=== PATIENT | male | born 1980 | race Caucasian/White ===

== ENCOUNTER 2020-01-26 15:58 | Emergency (ER) | payer BC ==
[~2020-01-26] VITALS: Ht 180.3 cm; Wt 145.4 kg
[~2020-01-26 15:58] MED LIST: BUPR-42 PO; CYCL10TA9 PO; GABA-488 PO; LEVO500T69 PO; LISI-556 PO; MELATONIN; NAPR-243 PO; ONDA8TAB13 PO; TRAZODONE HCL; TRM50T PO; ZOLOFT; [UNRECOGNIZED DRUG - OTHER]
--- NOTE | 2020-01-26 16:26 | ED Back Pain ---
General Chief Complaint: Back Problems Stated Complaint: BACK PAIN Source of Information: Patient Exam Limitations: No Limitations History of Present Illness Date Seen by Provider: January 26, 2020 Time Seen by Provider: 16:08 Initial Comments Patient presents ER by private conveyance with chief complaint of excruciating of back pain in his left lower back radiating down occasionally along the back side of his leg down to the level of the knee. No saddle anesthesia, loss of control of bowel or bladder, numbness, weakness, falls, trauma, history of surgery or imaging. He has been followed for this back pain that has recurred for many years by [facility] Tou[facility]. They have done several different pain management strategies but he is not really the name of any medications. He has not tried Tylenol, ibuprofen, topical creams, heat, ice, back brace or rest. He feels the pain is worse with movement but better at rest. No fever chills cough shortness of breath nausea or dysuria. No diabetes. Allergies and Home Medications Allergies Coded Allergies: No Known Drug Allergies (Unverified , 02/19/15) Home Medications Bupropion HCl 150 Mg Tab.er.24h, 150 MG PO DAILY, (Reported) Cyclobenzaprine HCl 10 Mg Tablet, 10 MG PO Q8H PRN for SPASMS Prescribed by: ESTHER ROUSE on 01/26/20 1629 Gabapentin 300 Mg Capsule, 300 MG PO DAILY, (Reported) Levofloxacin 500 Mg Tab, 1 EACH PO DAILY Prescribed by: JACI HAMILTON on 02/19/15 2344 Ondansetron 8 Mg Tab.rapdis, 8 MG PO Q6H PRN for NAUSEA/VOMITING Prescribed by: JAIDEN MCHUGH on 12/15/151934 Tramadol HCl 50 Mg Tablet, 50 MG PO Q6H PRN for PAIN Prescribed by: JAIDEN MCHUGH on 12/15/151934 Patient Home Medication List Home Medication List Reviewed: Yes Review of Systems Constitutional: No chills, No diaphoresis EENTM: No ear discharge, No ear pain Respiratory: No cough, No short of breath Cardiovascular: No chest pain, No edema Gastrointestinal: No abdominal pain, No nausea Genitourinary: No discharge, No dysuria Musculoskeletal: back pain; No joint pain Skin: No pruritus, No rash Past Myaifbv-Jsbvxc-Ujzezv Hx Patient Social History Alcohol Use: Denies Use Recreational Drug Use: No Smoking Status: Never a Smoker Recent Foreign Travel: No Contact w/Someone Who Travel: No Past Medical History Orthopedic Hypertension Reproductive Disorders: No Kidney Stones Fractures Diabetes, Non-Insulin dep Anxiety, Personality Disorder, Depression Adverse Reaction/Blood Tranf: No Family Medical History Heart Disease, Cancer, Diabetes, Hypertension Physical Exam Vital Signs Vital Signs - First Documented 01/26/20 16:02 Temp 36.9 Pulse 81 Resp 18 B/P (MAP) 121/81 (94) Pulse Ox 96 O2 Delivery Room Air Capillary Refill : Height, Weight, BMI Height: 5'10" Weight: 290lbs. oz. 131.179613kx; 41.61 BMI Method:Stated General Appearance: No Apparent Distress, WD/WN HEENT: PERRL/EOMI, Pharynx Normal, Moist Mucous Membranes Neck: Full Range of Motion, Normal Inspection Cardiovascular: Regular Rate, Rhythm, No Edema, Normal Peripheral Pulses Respiratory: Normal Breath Sounds, No Accessory Muscle Use, No Respiratory Distress Peripheral Pulses: 2+ Dorsalis Pedis (R), 2+ Left Dors-Pedis (L) Extremity: Normal Capillary Refill, Normal Inspection, Normal Range of Motion, Non Tender, No Pedal Edema Neurologic/Psychiatric: Alert, Oriented x3, No Motor/Sensory Deficits, Other (bilateral patellar tendon reflexes 2 out of 4, symmetric. Sensation present bilateral lower extremities. No motor deficits. Normal gait.) Skin: Normal Color, Warm/Dry Procedures/Interventions Progress Risks, benefits and alternatives were explained to a site injection with steroids and anesthetic area patient agreed to the risks and consented for rest to continue. We clean the site early using iodine swabs. After the iodine had dried clear thin able to use Z track method to put a 1-1/2 inch 25-gauge needle at the point of most pain and inject around the area after aspiration failed to withdraw any blood. We put 2 cc of 2% lidocaine with epinephrine as well as 2 cc of half percent bupivacaine and 1 cc/40 mg of Depo-Medrol. Patient tolerated the procedure very well. Progress/Results/Core Measures Results/Orders My Orders Orders - ESTHER ROUSE Lidocaine/Epi 2% 1:100,000 (Xylocaine/Ep (01/26/20 16:30) Methylprednisolone Acetate Inj (Depo-Med (01/26/20 16:30) Ketorolac Injection (Toradol Injection) (01/26/20 16:45) Medications Given in ED Current Medications Medications Dose Ordered Sig/Mariusz Route Start Time Stop Time Status Last Admin Dose Admin Lidocaine/ Epinephrine 20 ml ONCE ONCE INJ 01/26/20 16:30 01/26/20 16:31 DC 01/26/20 16:42 20 ML Methylprednisolone Acetate 40 mg ONCE ONCE IA 01/26/20 16:30 01/26/20 16:31 DC 01/26/20 16:41 40 MG Vital Signs/I&O 01/26/20 16:02 Temp 36.9 Pulse 81 Resp 18 B/P (MAP) 121/81 (94) Pulse Ox 96 O2 Delivery Room Air Progress Progress Note : Time: 16:25 Progress Note We discussed risks, benefits and alternatives to injecting with steroids versus oral and he would prefer to do the injection. Reproducible bupivacaine and lidocaine to help with point tenderness injecting. We've also given him a prescription for muscle relaxants. He has an appointment tomorrow with his primary care provider and he says he'll put that off until next week for follow- up. Departure Impression Primary Impression: Lumbago with sciatica, left side Qualified Codes: M54.42 - Lumbago with sciatica, left side Disposition: 01 HOME, SELF-CARE Condition: Stable Departure-Patient Inst. Decision time for Depature: 16:27 Referrals: [facility] (PCP/Family) Primary Care Physician Patient Instructions: Sciatica, Low Back Pain (DC), Sciatica Exercises, Back Flexion Strengthening Exercises Add. Discharge Instructions: Expect to see improvement over the next 1-2 weeks. If you're not seeing improvement and follow-up with primary care doctor. Return to the nearest ER promptly if you begin to experience loss of control of your bowels or bladder, weakness, numbness. Ibuprofen 800 mg every 8 hours as needed for pain. Tylenol 1000 mg every 8 hours as needed for pain. Cyclobenzaprine 1 tablet every 8 hours as necessary for muscle spasms in your back. It will cause drowsiness. All discharge instructions reviewed with patient and/or family. Voiced understanding. Scripts Cyclobenzaprine HCl (Cyclobenzaprine HCl) 10 Mg Tablet 10 MG PO Q8H PRN for SPASMS, #15 TAB 0 Refills Prov: ESTHER ROUSE 01/26/20 ESTHER ROUSE January 26, 2020 16:26
[2020-01-26] MEDS ORDERED: CYCL10TA9 PO (16:29)
[2020-01-26] MEDS ORDERED: LIDOCAINE/EPI 2% 1:100,00 (XYLOCAINE) 20 ML VIAL INJ ONE (16:30)
[2020-01-26] MEDS ORDERED: methylPREDNISolone 40 MG/ML (DEPO MEDROL) VIAL IA ONE (16:30)
[2020-01-26] MEDS ORDERED: KETOROLAC 60 MG/2 ML VIAL IM ONE (16:45)
[2020-01-26 17:18] VITALS: BP 126/80
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
--- OUTSIDE RECORDS SUMMARY | 2020-01-26 19:42 | XMS REPORT ---
Author Author Deon Avila Doctor Organization [facility] Address Unknown Phone Unavailable Care Team Providers Care Private Mortgage [employer]er Safe Name Role Phone Migration, Doctor Unavailable Unavailable PROBLEMS Type Condition ICD9-CM Code NIK36-MA Code Onset Dates Condition S tatus SNOMED Code Problem Hypogonadism in male E29.1 Active 91569001 Problem Morbid obesity due to excess calories E66.01 Active 813518171 Problem Mood disorder F39 Active 688173 05 Problem Other chronic pain G89.29 Active 8 7673641 Problem Generalized anxiety disorder F41.1 A ctive 61069740 Problem Lumbago with sciatica, left side M54.42 Active 411093088 Problem Bipolar disorder, curr episode mixed, severe, wi th psychotic features F31.64 Active 736361030 Problem Anxiety F41.9 Active 97336008 Problem Low back pain M54.5 Active 175753 007 Problem Observed sleep apnea G47.30 Active 82709601 Problem Acute left-sided low back pain with left-sided sciatica M54.42 Active 551584791 ALLERGIES No Information ENCOUNTERS Encounter Location Date Diagnosis [place] [address] [address] Jul, Lumbago with sciatica, left side M54.42 and Other chronic pain G89.29 [place] [address] [address] Jun, [place] [address] [address] 07 Jun, 2019 Bipolar disorder, curr episode mixed, se [place], with psychotic features F31.64 [place] [address] [address] May, Low back pain M54.5 ; Other chronic pain G89.29 ; Morbid obesity due to excess calories E66.01 and Family history of diabetes mellitus Z83.3 [place] [address] [address] Apr, BMI 40.0-44.9, adult Z68.41 ; Bipolar di sorder, curr episode mixed, severe, with psychotic features F31.64 and Morbid obesity E66.01 [place] [address] [address] Mar, Bipolar disorder, curr episode mixed, se kolton, with psychotic features F31.64 [facility] [address] [place] [id number] [place] [address] Mar, Acute left-sided low back pa in with left-sided sciatica M54.42 [place] [address] [address] Mar, [place] [address] [address] Mar, Bipolar disorder, curr episode mixed, se kolton, with psychotic features F31.64 ; BMI 40.0-44.9, adult Z68.41 and Morbid obesity E66.01 [facility] [address] [place] [id number] [place] [address] January, Strain of lumbar region, ini tial encounter S39.012A [place] [address] [address] Dec, Snoring R06.83 [place] [address] [address] Dec, Bipolar disorder, curr episode mixed, se kolton, with psychotic features F31.64 ; BMI 40.0-44.9, adult Z68.41 and Morbid obesity E66.01 [place] [address] [address] Nov, Snoring R06.83 and Observed sleep apnea G47.30 [place] [address] [address] Oct, Bipolar disorder, curr episode mixed, se kolton, with psychotic features F31.64 and BMI 40.0-44.9, adult Z68.41 [facility] [address] [address] May, Low back pain M54.5 and Cervicalgia M54. 2 [place] [address] [address] Apr, Low back pain M54.5 ; Bipolar disorder, curr episode mixed, severe, with psychotic features F31.64 ; Hypogonadism in male E29.1 ; Morbid obesity due to excess calories E66.01 ; Mood disorder F39 and Cervicalgia M54.2 [place] [address] [address] Apr, Bipolar disorder, curr episode mixed, se kolton, with psychotic features F31.64 and BMI 40.0-44.9, adult Z68.41 [facility] [address] [facility] [id number] [place] [address] Apr, Hand, foot and mouth disease B08.4 and Ingrown toenail of right foot with infection L60.0 [place] [address] [address] January, Bipolar disorder, curr episode mixed, se kolton, with psychotic features F31.64 and BMI 40.0-44.9, adult Z68.41 [place] [address] [address] Dec, Bipolar disorder, curr episode mixed, se kolton, with psychotic features F31.64 [place] [address] [address] Aug, Bipolar disorder, curr episode mixed, se kol[place], with psychotic features F31.64 [place] [address] [address] Apr, Bipolar disorder, curr episode mixed, se kolton, with psychotic features F31.64 [place] [address] [address] Mar, Bipolar disorder, curr episode mixed, se kolton, with psychotic features F31.64 [facility] [address] [place] [address] Mar, Bipolar disorder, curr episode mixed, se kolton, with psychotic features F31.64 [facility] [address] [place] [address] Nov, Bipolar disorder, curr episode mixed, se kolton, with psychotic features F31.64 [facility] [address] [address] Oct, Bipolar disorder, curr episode mixed, se kolton, with psychotic features F31.64 [facility] [address] [address] Oct, Bipolar disorder, curr episode mixed, se kolton, with psychotic features F31.64 [facility] [address] [place] [address] Sep, [facility] [address] [address] Sep, Bipolar disorder, curr episode mixed, se kolton, with psychotic features F31.64 [facility] [address] [address] Sep, Bipolar disorder, curr episode mixed, se kolton, with psychotic features F31.64 [facility] [address] [place] [id number] Sep, Bipolar disorder, curr episode mixed, se kolton, with psychotic features F31.64 and Generalized anxiety disorder F41.1 [facility] [address] [place] [address] Jul, Bipolar disorder, curr episode mixed, se kolton, with psychotic features F31.64 and Generalized anxiety disorder F41.1 [facility] [address] [address] Jul, [facility] [address] [address] Jul, Bipolar disorder, curr episode mixed, se kolton, with psychotic features F31.64 [place] [address] [address] Jul, Bipolar disorder, curr episode mixed, se kolton, with psychotic features F31.64 and Generalized anxiety disorder F41.[address] [address] Jul, Bipolar disorder, curr episode mixed, se kolton, with psychotic features F31.64 [place] [address] [address] Jul, Bipolar II disorder F31.81 and Generaliz ed anxiety disorder F41.[address] [address] Feb, Dental examination Z01.[address] [address] Dec, Dental examination Z01.20 [facility] [address] [id number] Nov, Dental examination Z01.20 [facility] [address] [id number] Sep, Dental examination Z01.[address] [address] Jul, Hypogonadism in male E29.[address] [address] 07 Jun, 2015 Diabetes mellitus without mention of com plication, type II or unspecified type, not stated as uncontrolled 250.00 and Testicular pain, right 608.[address] [address] May, Hypogonadism in male 257.[address] [address] Apr, [address] [id number] [place] [address] Mar, Hypogonadism in male 257.2 [facility] [address] [address] Mar, [facility] [address] [address] Mar, [facility] [address] [address] Mar, Hypogonadism in male 257.2 [facility] [address] [address] Feb, Hypogonadism male 257.2 [facility] [address] [address] Feb, Diabetes mellitus without mention of com plication, type II or unspecified type, not stated as uncontrolled 250.00 ; Epididymitis 604.90 and Hypogonadism in male 257.2 [facility] [address] [address] Feb, [facility] [address] [address] Feb, [facility] [address] [address] Feb, Testicular pain, right 608.9 ; Diabetes mellitus without mention of complication, type II or unspecified type, not stated as uncontrolled 250.00 and Family history of heart disease V17.49 [facility] [address] [address] Feb, Testicular pain, right 608.9 and Family history of heart disease V17.49 [facility] [address] [address] Feb, [facility] [address] [address] Dec, [facility] [address] [address] Dec, [facility] [place] [facility] [address] [facility] [id number] [place] [address] 16 Oct, 2014 [facility] [place] [facility] [address] [id number] [place] [address] Oct, [facility] [place] [facility] [address] [id number] [place] [address] Sep, [facility] [place] [facility] [address] [id number] [place] [address] Sep, [facility] [place] [facility] [address] [id number] [place] [address] Sep, [facility] [place] [facility] [address] [id number] [place] [address] Sep, [facility] [place] [facility] [address] [id number] [place] [address] Sep, [facility] [place] [facility] [address] [id number] [place] [address] Sep, [facility] [place] [facility] [address] [id number] [place] [address] Sep, [facility] [place] [facility] [address] [id number] [place] [address] Sep, [facility] [place] [facility] [address] [id number] [place] [address] Sep, [facility] [place] [facility] [address] [id number] [place] [address] Sep, [facility] [place] [facility] [address] [id number] [place] [address] Feb, [facility] [place] [facility] [address] [id number] [place] [address] Feb, [facility] [place] [facility] [address] [id number] [place] [address] January, [facility] [place] [facility] [address] [id number] [place] [address] January, [facility] [place] [facility] [address] [id number] [place] [address] January, [facility] [address] [id number] [place] [address] January, [facility] [address] [id number] [place] [address] January, [facility] [address] [id number] [place] [address] January, [facility] [address] [id number] [place] [address] Nov, [facility] [address] [id number] [place] [address] Nov, [facility] [address] [id number] [place] [address] Nov, [facility] [address] [id number] [place] [address] Nov, [facility] [address] [id number] [place] [address] Oct, [facility] [address] [id number] [place] [address] Oct, [facility] [address] [id number] [place] [address] Oct, [facility] [address] [id number] [place] [address] Oct, [facility] [address] [id number] [place] [address] Oct, [facility] [address] [id number] [place] [address] Oct, [facility] [address] [place] [id number] [place] [address] 14 Oct, 2013 [facility] [address] [id number] [place] [address] 14 Oct, 2013 [facility] [address] [id number] [place] [address] 13 Oct, 2013 IMMUNIZATIONS No Known Immunizations SOCIAL HISTORY Never Assessed REASON FOR VISIT PLAN OF CARE VITAL SIGNS MEDICATIONS Unknown Medications RESULTS No Results PROCEDURES No Known procedures INSTRUCTIONS MEDICATIONS ADMINISTERED No Known Medications MEDICAL [...]
--- OUTSIDE RECORDS SUMMARY | 2020-01-26 19:42 | XMS REPORT ---
Author Author Deon Avila Doctor Organization [facility] Address Unknown Phone Unavailable Care Team Providers Care Lsw Name Role Phone Migration, Doctor Unavailable Unavailable PROBLEMS Type Condition ICD9-CM Code YRY56-LS Code Onset Dates Condition S tatus SNOMED Code Problem Hypogonadism in male E29.1 Active 97454790 Problem Morbid obesity due to excess calories E66.01 Active 513713901 Problem Mood disorder F39 Active 079092 05 Problem Other chronic pain G89.29 Active 8 0951557 Problem Generalized anxiety disorder F41.1 A ctive 64838844 Problem Lumbago with sciatica, left side M54.42 Active 390911968 Problem Bipolar disorder, curr episode mixed, severe, wi th psychotic features F31.64 Active 037562332 Problem Anxiety F41.9 Active 63793633 Problem Low back pain M54.5 Active 510045 007 Problem Observed sleep apnea G47.30 Active 57118361 Problem Acute left-sided low back pain with left-sided sciatica M54.42 Active 736362336 ALLERGIES No Information ENCOUNTERS Encounter Location Date Diagnosis [place] [address] [address] Nov, [place] [address] [address] Nov, [place] [address] [address] Jul, Lumbago with sciatica, left side M54.42 and Other chronic pain G89.29 [place] [address] [address] Jun, [place] [address] [address] 07 Jun, 2019 Bipolar disorder, curr episode mixed, se kolton, with psychotic features F31.64 [place] [address] [address] May, Low back pain M54.5 ; Other chronic pain G89.29 ; Morbid obesity due to excess calories E66.01 and Family history of diabetes mellitus Z83.3 [place] [address] [address] Apr, BMI 40.0-44.9, adult Z68.41 ; Bipolar di sorder, curr episode mixed, severe, with psychotic features F31.64 and Morbid obesity E66.01 [place] [address] [address] Mar, Bipolar disorder, curr episode mixed, se kolton, with psychotic features F31.64 [facility] [address] [address] Mar, Acute left-sided low back pa in with left-sided sciatica M54.[address] [address] Mar, [address] [address] Mar, Bipolar disorder, curr episode mixed, se kolton, with psychotic features F31.64 ; BMI 40.0-44.9, adult Z68.41 and Morbid obesity E66.01 [facility] [place] [id number] [place] [address] January, Strain of lumbar region, ini tial encounter S39.012A [address] [address] Dec, Snoring R06.[address] [address] Dec, Bipolar disorder, curr episode mixed, se kolton, with psychotic features F31.64 ; BMI 40.0-44.9, adult Z68.41 and Morbid obesity E66.[address] [address] Nov, Snoring R06.83 and Observed sleep apnea G47.30 [place] [address] [address] Oct, Bipolar disorder, curr episode mixed, se kolton, with psychotic features F31.64 and BMI 40.0-44.9, adult Z68.41 [place] [address] [address] May, Low back pain M54.5 and Cervicalgia M54. 2 [place] [address] [address] Apr, Low back pain M54.5 ; Bipolar disorder, curr episode mixed, severe, with psychotic features F31.64 ; Hypogonadism in male E29.1 ; Morbid obesity due to excess calories E66.01 ; Mood disorder F39 and Cervicalgia M54.[address] [address] Apr, Bipolar disorder, curr episode mixed, se kolton, with psychotic features F31.64 and BMI 40.0-44.9, adult Z68.41 [facility] WALK IN [facility] [address] [facility] [id number] [address] [place] [address] Apr, Hand, foot and mouth disease B08.4 and Ingrown toenail of right foot with infection L60.[address] [address] January, Bipolar disorder, curr episode mixed, se kolton, with psychotic features F31.64 and BMI 40.0-44.9, adult Z68.[address] [address] Dec, Bipolar disorder, curr episode mixed, se kolton, with psychotic features F31.64 [facility] [address] [address] Aug, Bipolar disorder, curr episode mixed, se kolton, with psychotic features F31.64 [place] [address] [place] [address] Apr, Bipolar disorder, curr episode mixed, se kolton, with psychotic features F31.64 [facility] [address] [place] [address] Mar, Bipolar disorder, curr episode mixed, se kolton, with psychotic features F31.64 [place] [address] [place] [address] Mar, Bipolar disorder, curr episode mixed, se kolton, with psychotic features F31.64 [place] [address] [place] [address] Nov, Bipolar disorder, curr episode mixed, se kolton, with psychotic features F31.64 [place] [address] [place] [address] Oct, Bipolar disorder, curr episode mixed, se kolton, with psychotic features F31.64 [place] [address] [address] Oct, Bipolar disorder, curr episode mixed, se kolton, with psychotic features F31.64 [place] [address] [place] [address] Sep, [place] [address] [place] [address] Sep, Bipolar disorder, curr episode mixed, se kolton, with psychotic features F31.64 [place] [address] [place] [address] Sep, Bipolar disorder, curr episode mixed, se kolton, with psychotic features F31.64 [place] [address] [place] [address] Sep, Bipolar disorder, curr episode mixed, se kolton, with psychotic features F31.64 and Generalized anxiety disorder F41.1 [facility] [address] [place] [address] Jul, Bipolar disorder, curr episode mixed, se kolton, with psychotic features F31.64 and Generalized anxiety disorder F41.1 [place] [address] [place] [address] Jul, [place] [address] Jul, Bipolar disorder, curr episode mixed, se kolton, with psychotic features F31.64 [place] [address] [place] [address] Jul, Bipolar disorder, curr episode mixed, se kolton, with psychotic features F31.64 and Generalized anxiety disorder F41.1 [place] [address] Jul, Bipolar disorder, curr episode mixed, se kolton, with psychotic features F31.64 [place] [address] [address] Jul, Bipolar II disorder F31.81 and Generaliz ed anxiety disorder F41.1 [place] [address] [address] Feb, Dental examination Z01.20 [place] [address] Dec, Dental examination Z01.20 [facility] [address] [id number] Nov, Dental examination Z01.20 [facility] [address] [id number] Sep, Dental examination Z01.20 [place] [address] [address] Jul, Hypogonadism in male E29.1 [place] [address] 07 Jun, 2015 Diabetes mellitus without mention of com plication, type II or unspecified type, not stated as uncontrolled 250.00 and Testicular pain, right 608.[address] [place] [address] May, Hypogonadism in male 257.2 [facility] [address] [address] Apr, [facility] [address] [address] Mar, Hypogonadism in male 257.2 [facility] [address] [address] Mar, [facility] [address] [address] Mar, [facility] [address] [address] Mar, Hypogonadism in male 257.2 [facility] [address] [address] Feb, Hypogonadism male 257.2 [facility] [address] [address] Feb, Diabetes mellitus without mention of com plication, type II or unspecified type, not stated as uncontrolled 250.00 ; Epididymitis 604.90 and Hypogonadism in male 257.2 [facility] [address] [address] Feb, [facility] [address] [address] Feb, [facility] [address] [address] Feb, Testicular pain, right 608.9 ; Diabetes mellitus without mention of complication, type II or unspecified type, not stated as uncontrolled 250.00 and Family history of heart disease V17.49 [place] [address] [address] Feb, Testicular pain, right 608.9 and Family history of heart disease V17.49 [place] [address] [address] Feb, [facility] [place] [facility] [address] [id number] [place] [address] Dec, [facility] [place] [facility] [address] [id number] [place] [address] Dec, [facility] [place] [facility] [address] [id number] [place] [address] Oct, [facility] [place] [facility] [address] [id number] [place] [address] Oct, [facility] [place] [facility] [address] [id number] [place] [address] Sep, [facility] [place] [facility] [address] [id number] [place] [address] Sep, [facility] [place] [facility] [address] [id number] [place] [address] Sep, [facility] [place] [facility] [address] [id number] [place] [address] Sep, [facility] [place] [facility] [address] [id number] [place] [address] Sep, [facility] [place] [facility] [address] [id number] [place] [address] Sep, [facility] [place] [facility] [address] [id number] [place] [address] Sep, [facility] [place] [facility] [address] [id number] [place] [address] Sep, [facility] [place] [facility] [address] [id number] [place] [address] Sep, [facility] [place] [facility] [address] [id number] [place] [address] Sep, [facility] [place] [facility] [address] [id number] [place] [address] Feb, [facility] [place] [facility] [address] [id number] [place] [address] Feb, [facility] [place] [facility] [address] [id number] [place] [address] January, [facility] [place] [facility] [address] [id number] [place] [address] January, [facility] [place] [facility] [address] [id number] [place] [address] January, [facility] [place] [facility] [address] [id number] [place] [address] January, [facility] [place] [facility] [address] [id number] [place] [address] January, [facility] [place] [facility] [address] [id number] [place] [address] January, [facility] [place] [facility] [address] [id number] [place] [address] Nov, [facility] [place] [facility] [address] [id number] [place] [address] Nov, [facility] [place] [facility] [address] [id number] [place] [address] Nov, [facility] [place] [facility] [address] [id number] [place] [address] Nov, [facility] [place] [facility] [address] [id number] [place] [address] Oct, [facility] [place] [facility] [address] [id number] [place] [address] Oct, [facility] [place] [facility] [address] [id number] [place] [address] Oct, [facility] [place] [facility] [address] [id number] [place] [address] Oct, [facility] [place] [facility] [address] [id number] [place] [address] Oct, [facility] [place] [facility] [address] [id number] [place] [address] Oct, [facility] [place] [facility] [address] [id number] [place] [address] 14 Oct, 2013 [facility] [address] [facility] [id number] [place] [address] Oct, [facility] [address] [facility] [id number] [place] [address] Oct, IMMUNIZATIONS No Known Immunizations SOCIAL HISTORY Never [...]
--- OUTSIDE RECORDS SUMMARY | 2020-01-26 19:42 | XMS REPORT ---
Author Author Deon Avila Doctor Organization [facility] Address Unknown Phone Unavailable Care Team Providers Care Pipe Installer Name Role Phone Migration, Doctor Unavailable Unavailable PROBLEMS Type Condition ICD9-CM Code [id number] Code Onset Dates Condition S tatus SNOMED Code Problem Hypogonadism in male E29.1 Active 06186210 Problem Morbid obesity due to excess calories E66.01 Active 140257270 Problem Mood disorder F39 Active 740606 05 Problem Other chronic pain G89.29 Active 8 3548736 Problem Generalized anxiety disorder F41.1 A ctive 28613181 Problem Lumbago with sciatica, left side M54.42 Active 635523870 Problem Bipolar disorder, curr episode mixed, severe, wi th psychotic features F31.64 Active 687911036 Problem Anxiety F41.9 Active 85204315 Problem Low back pain M54.5 Active 698605 007 Problem Observed sleep apnea G47.30 Active 61999610 Problem Acute left-sided low back pain with left-sided sciatica M54.42 Active 597772022 ALLERGIES No Information ENCOUNTERS Encounter Location Date Diagnosis [place] [address] [address] Nov, [place] [address] [address] Jul, Lumbago with sciatica, left side M54.42 and Other chronic pain G89.29 [place] [address] [address] Jun, [place] [address] [address] Jun, Bipolar disorder, curr episode mixed, se kolton, with psychotic features F31.64 [place] [address] [address] May, Low back pain M54.5 ; Other chronic pain G89.29 ; Morbid obesity due to excess calories E66.01 and Family history of diabetes mellitus Z83.3 [place] [address] [address] Apr, BMI 40.0-44.9, adult Z68.41 ; Bipolar di sorder, curr episode mixed, severe, with psychotic features F31.64 and Morbid obesity E66.01 [place] [address] [address] Mar, Bipolar disorder, curr episode mixed, se kolton, with psychotic features F31.64 [facility] [address] [place] [address] Mar, Acute left-sided low back pa in with left-sided sciatica M54.[address] [address] Mar, [address] [address] Mar, Bipolar disorder, curr episode mixed, se kolton, with psychotic features F31.64 ; BMI 40.0-44.9, adult Z68.41 and Morbid obesity E66.01 [facility] [place] [address] [address] [place] [id number] [place] [address] January, Strain of lumbar region, ini tial encounter S39.012A [address] [address] Dec, Snoring R06.[address] [address] Dec, Bipolar disorder, curr episode mixed, se kolton, with psychotic features F31.64 ; BMI 40.0-44.9, adult Z68.41 and Morbid obesity E66.01 [place] [address] [address] Nov, Snoring R06.83 and Observed sleep apnea G47.[address] [address] 15 Oct, 2018 Bipolar disorder, curr episode mixed, se kolton, with psychotic features F31.64 and BMI 40.0-44.9, adult Z68.41 [place] [address] [address] May, Low back pain M54.5 and Cervicalgia M54. 2 [place] [address] [address] Apr, Low back pain M54.5 ; Bipolar disorder, curr episode mixed, severe, with psychotic features F31.64 ; Hypogonadism in male E29.1 ; Morbid obesity due to excess calories E66.01 ; Mood disorder F39 and Cervicalgia M54.2 [place] [address] [address] Apr, Bipolar disorder, curr episode mixed, se kolton, with psychotic features F31.64 and BMI 40.0-44.9, adult Z68.41 [facility] [address] [facility] [id number] [address] [place] [address] Apr, Hand, foot and mouth disease B08.4 and Ingrown toenail of right foot with infection L60.[address] [address] January, Bipolar disorder, curr episode mixed, se kolton, with psychotic features F31.64 and BMI 40.0-44.9, adult Z68.41 [place] [address] [address] Dec, Bipolar disorder, curr episode mixed, se kolton, with psychotic features F31.64 [place] [address] [address] Aug, Bipolar disorder, curr episode mixed, se kolton, with psychotic features F31.64 [place] [address] [address] Apr, Bipolar disorder, curr episode mixed, se kolton, with psychotic features F31.64 [facility] [address] [place] [address] Mar, Bipolar disorder, curr episode mixed, se kolton, with psychotic features F31.64 [facility] [address] [place] [address] Mar, Bipolar disorder, curr episode mixed, se kolton, with psychotic features F31.64 [facility] [address] [place] [address] Nov, Bipolar disorder, curr episode mixed, se kolton, with psychotic features F31.64 [facility] [address] [place] [address] Oct, Bipolar disorder, curr episode mixed, se kolton, with psychotic features F31.64 [facility] [address] [address] Oct, Bipolar disorder, curr episode mixed, se kolton, with psychotic features F31.64 [facility] [address] [address] Sep, [facility] [address] [place] [address] Sep, Bipolar disorder, curr episode mixed, se kolton, with psychotic features F31.64 [facility] [address] [place] [address] Sep, Bipolar disorder, curr episode mixed, se kolton, with psychotic features F31.64 [facility] [address] [address] Sep, Bipolar disorder, curr episode mixed, se kolton, with psychotic features F31.64 and Generalized anxiety disorder F41.1 [facility] [address] [place] [address] Jul, Bipolar disorder, curr episode mixed, se kolton, with psychotic features F31.64 and Generalized anxiety disorder F41.1 [facility] [address] [address] Jul, [facility] [address] [place] [address] Jul, Bipolar disorder, curr episode mixed, se kolton, with psychotic features F31.64 [place] [address] [address] 15 Jul, 2016 Bipolar disorder, curr episode mixed, se kolton, with psychotic features F31.64 and Generalized anxiety disorder F41.1 [place] [address] [address] Jul, Bipolar disorder, curr episode mixed, se kolton, with psychotic features F31.64 [place] [address] [address] Jul, Bipolar II disorder F31.81 and Generaliz ed anxiety disorder F41.[address] [address] Feb, Dental examination Z01.20 [place] [address] [address] Dec, Dental examination Z01.20 [facility] [address] [id number] Nov, Dental examination Z01.20 [facility] [address] [id number] Sep, Dental examination Z01.20 [place] [address] [address] Jul, Hypogonadism in male E29.[address] [address] 07 Jun, 2015 Diabetes mellitus without mention of com plication, type II or unspecified type, not stated as uncontrolled 250.00 and Testicular pain, right 608.[address] [address] 23 May, 2015 Hypogonadism in male 257.[address] [id number] [place] [address] Apr, [facility] [address] [address] Mar, Hypogonadism in male 257.2 [facility] [address] [address] Mar, [facility] [address] [address] Mar, [facility] [address] [address] Mar, Hypogonadism in male 257.2 [facility] [address] [address] Feb, Hypogonadism male 257.2 [facility] [address] [address] Feb, Diabetes mellitus without mention of com plication, type II or unspecified type, not stated as uncontrolled 250.00 ; Epididymitis 604.90 and Hypogonadism in male 257.2 [facility] [address] [address] Feb, [facility] [address] [address] Feb, [facility] [address] [address] Feb, Testicular pain, right 608.9 ; Diabetes mellitus without mention of complication, type II or unspecified type, not stated as uncontrolled 250.00 and Family history of heart disease V17.49 [facility] [address] [address] Feb, Testicular pain, right 608.9 and Family history of heart disease V17.49 [facility] [address] [address] Feb, [facility] [address] [address] Dec, [facility] [place] [facility] [address] [id number] [place] [address] Dec, [facility] [place] [facility] [address] [id number] [place] [address] 16 Oct, 2014 [facility] [place] [facility] [address] [id number] [place] [address] 16 Oct, 2014 [facility] [place] [facility] [address] [id number] [place] [address] Sep, [facility] [place] [facility] [address] [id number] [place] [address] Sep, [facility] [place] [facility] [address] [id number] [place] [address] Sep, [facility] [place] [facility] [address] [id number] [place] [address] Sep, [facility] [place] [facility] [address] [id number] [place] [address] Sep, [facility] [place] [facility] [address] [id number] [place] [address] Sep, [facility] [place] [facility] [address] [id number] [place] [address] Sep, [facility] [place] [facility] [address] [id number] [place] [address] Sep, [facility] [place] [facility] [address] [id number] [place] [address] Sep, [facility] [place] [facility] [address] [id number] [place] [address] Sep, [facility] [place] [facility] [address] [id number] [place] [address] Feb, [facility] [place] [facility] [address] [id number] [place] [address] Feb, [facility] [place] [facility] [address] [id number] [place] [address] January, [facility] [place] [facility] [address] [id number] [place] [address] January, [facility] [place] [facility] [address] [facility] [id number] [place] [address] January, [facility] [place] [facility] [address] [id number] [place] [address] January, [facility] [place] [facility] [address] [id number] [place] [address] January, [facility] [place] [facility] [address] [id number] [place] [address] January, [facility] [place] [facility] [address] [id number] [place] [address] Nov, [facility] [place] [facility] [address] [id number] [place] [address] Nov, [facility] [place] [facility] [address] [id number] [place] [address] Nov, [facility] [place] [facility] [address] [id number] [place] [address] Nov, [facility] [address] [id number] [place] [address] Oct, [facility] [address] [id number] [place] [address] Oct, [facility] [address] [id number] [place] [address] Oct, [facility] [address] [id number] [place] [address] Oct, [facility] [address] [id number] [place] [address] Oct, [facility] [address] [id number] [place] [address] Oct, [facility] [address] [id number] [place] [address] 14 Oct, 2013 [facility] [address] [id number] [place] [address] 14 Oct, 2013 [facility] [address] [facility] [id number] [place] [address] 13 Oct, 2013 IMMUNIZATIONS No Known Immunizations [...]
--- OUTSIDE RECORDS SUMMARY | 2020-01-26 19:42 | XMS REPORT ---
Author Author Deon Avila Doctor Organization [facility] Address Unknown Phone Unavailable Care Team Providers Care Surgical Sales Representative Name Role Phone Migration, Doctor Unavailable Unavailable PROBLEMS Type Condition ICD9-CM Code [id number] Code Onset Dates Condition S tatus SNOMED Code Problem Hypogonadism in male E29.1 Active 14986373 Problem Morbid obesity due to excess calories E66.01 Active 946263758 Problem Mood disorder F39 Active 620932 05 Problem Other chronic pain G89.29 Active 8 1428997 Problem Generalized anxiety disorder F41.1 A ctive 98191125 Problem Lumbago with sciatica, left side M54.42 Active 356592962 Problem Bipolar disorder, curr episode mixed, severe, wi th psychotic features F31.64 Active 418705046 Problem Anxiety F41.9 Active 07766531 Problem Low back pain M54.5 Active 845469 007 Problem Observed sleep apnea G47.30 Active 89348944 Problem Acute left-sided low back pain with left-sided sciatica M54.42 Active 413059138 ALLERGIES No Information ENCOUNTERS Encounter Location Date Diagnosis [place] [address] [address] Nov, [place] [address] [address] Jul, Lumbago with sciatica, left side M54.42 and Other chronic pain G89.29 [place] [address] [address] Jun, [place] [address] [address] Jun, Bipolar disorder, curr episode mixed, se kolton, with psychotic features F31.64 [place] [address] [address] May, Low back pain M54.5 ; Other chronic pain G89.29 ; Morbid obesity due to excess calories E66.01 and Family history of diabetes mellitus Z83.3 [place] [address] [address] Apr, BMI 40.0-44.9, adult Z68.41 ; Bipolar di sorder, curr episode mixed, severe, with psychotic features F31.64 and Morbid obesity E66.01 [place] [address] [address] Mar, Bipolar disorder, curr episode mixed, se kolton, with psychotic features F31.64 [facility] [address] [place] [address] Mar, Acute left-sided low back pa in with left-sided sciatica M54.[address] [address] Mar, [address] [address] Mar, Bipolar disorder, curr episode mixed, se kolton, with psychotic features F31.64 ; BMI 40.0-44.9, adult Z68.41 and Morbid obesity E66.01 [facility] [place] [address] [address] [place] [id number] [place] [address] January, Strain of lumbar region, ini tial encounter S39.012A [address] [address] Dec, Snoring R06.[address] [address] Dec, Bipolar disorder, curr episode mixed, se kolton, with psychotic features F31.64 ; BMI 40.0-44.9, adult Z68.41 and Morbid obesity E66.01 [place] [address] [address] Nov, Snoring R06.83 and Observed sleep apnea G47.[address] [address] 15 Oct, 2018 Bipolar disorder, curr episode mixed, se kolton, with psychotic features F31.64 and BMI 40.0-44.9, adult Z68.41 [place] [address] [address] May, Low back pain M54.5 and Cervicalgia M54. 2 [place] [address] [address] Apr, Low back pain M54.5 ; Bipolar disorder, curr episode mixed, severe, with psychotic features F31.64 ; Hypogonadism in male E29.1 ; Morbid obesity due to excess calories E66.01 ; Mood disorder F39 and Cervicalgia M54.2 [place] [address] [address] Apr, Bipolar disorder, curr episode mixed, se kolton, with psychotic features F31.64 and BMI 40.0-44.9, adult Z68.41 [facility] [address] [facility] [id number] [address] [place] [address] Apr, Hand, foot and mouth disease B08.4 and Ingrown toenail of right foot with infection L60.[address] [address] January, Bipolar disorder, curr episode mixed, se kolton, with psychotic features F31.64 and BMI 40.0-44.9, adult Z68.41 [place] [address] [address] Dec, Bipolar disorder, curr episode mixed, se kolton, with psychotic features F31.64 [place] [address] [address] Aug, Bipolar disorder, curr episode mixed, se kolton, with psychotic features F31.64 [place] [address] [address] Apr, Bipolar disorder, curr episode mixed, se kolton, with psychotic features F31.64 [facility] [address] [place] [address] Mar, Bipolar disorder, curr episode mixed, se kolton, with psychotic features F31.64 [facility] [address] [place] [address] Mar, Bipolar disorder, curr episode mixed, se kolton, with psychotic features F31.64 [facility] [address] [place] [address] Nov, Bipolar disorder, curr episode mixed, se kolton, with psychotic features F31.64 [facility] [address] [place] [address] Oct, Bipolar disorder, curr episode mixed, se kolton, with psychotic features F31.64 [facility] [address] [address] Oct, Bipolar disorder, curr episode mixed, se kolton, with psychotic features F31.64 [facility] [address] [address] Sep, [facility] [address] [place] [address] Sep, Bipolar disorder, curr episode mixed, se kolton, with psychotic features F31.64 [facility] [address] [place] [address] Sep, Bipolar disorder, curr episode mixed, se kolton, with psychotic features F31.64 [facility] [address] [address] Sep, Bipolar disorder, curr episode mixed, se kolton, with psychotic features F31.64 and Generalized anxiety disorder F41.1 [facility] [address] [place] [address] Jul, Bipolar disorder, curr episode mixed, se kolton, with psychotic features F31.64 and Generalized anxiety disorder F41.1 [facility] [address] [address] Jul, [facility] [address] [place] [address] Jul, Bipolar disorder, curr episode mixed, se kolton, with psychotic features F31.64 [place] [address] [address] 15 Jul, 2016 Bipolar disorder, curr episode mixed, se kolton, with psychotic features F31.64 and Generalized anxiety disorder F41.1 [place] [address] [address] Jul, Bipolar disorder, curr episode mixed, se kolton, with psychotic features F31.64 [place] [address] [address] Jul, Bipolar II disorder F31.81 and Generaliz ed anxiety disorder F41.[address] [address] Feb, Dental examination Z01.20 [place] [address] [address] Dec, Dental examination Z01.20 [facility] [address] [id number] Nov, Dental examination Z01.20 [facility] [address] [id number] Sep, Dental examination Z01.20 [place] [address] [address] Jul, Hypogonadism in male E29.[address] [address] 07 Jun, 2015 Diabetes mellitus without mention of com plication, type II or unspecified type, not stated as uncontrolled 250.00 and Testicular pain, right 608.[address] [address] 23 May, 2015 Hypogonadism in male 257.[address] [id number] [place] [address] Apr, [facility] [address] [address] Mar, Hypogonadism in male 257.2 [facility] [address] [address] Mar, [facility] [address] [address] Mar, [facility] [address] [address] Mar, Hypogonadism in male 257.2 [facility] [address] [address] Feb, Hypogonadism male 257.2 [facility] [address] [address] Feb, Diabetes mellitus without mention of com plication, type II or unspecified type, not stated as uncontrolled 250.00 ; Epididymitis 604.90 and Hypogonadism in male 257.2 [facility] [address] [address] Feb, [facility] [address] [address] Feb, [facility] [address] [address] Feb, Testicular pain, right 608.9 ; Diabetes mellitus without mention of complication, type II or unspecified type, not stated as uncontrolled 250.00 and Family history of heart disease V17.49 [facility] [address] [address] Feb, Testicular pain, right 608.9 and Family history of heart disease V17.49 [facility] [address] [address] Feb, [facility] [address] [address] Dec, [facility] [place] [facility] [address] [id number] [place] [address] Dec, [facility] [place] [facility] [address] [id number] [place] [address] 16 Oct, 2014 [facility] [place] [facility] [address] [id number] [place] [address] 16 Oct, 2014 [facility] [place] [facility] [address] [id number] [place] [address] Sep, [facility] [place] [facility] [address] [id number] [place] [address] Sep, [facility] [place] [facility] [address] [id number] [place] [address] Sep, [facility] [place] [facility] [address] [id number] [place] [address] Sep, [facility] [place] [facility] [address] [id number] [place] [address] Sep, [facility] [place] [facility] [address] [id number] [place] [address] Sep, [facility] [place] [facility] [address] [id number] [place] [address] Sep, [facility] [place] [facility] [address] [id number] [place] [address] Sep, [facility] [place] [facility] [address] [id number] [place] [address] Sep, [facility] [place] [facility] [address] [id number] [place] [address] Sep, [facility] [place] [facility] [address] [id number] [place] [address] Feb, [facility] [place] [facility] [address] [id number] [place] [address] Feb, [facility] [place] [facility] [address] [id number] [place] [address] January, [facility] [place] [facility] [address] [id number] [place] [address] January, [facility] [place] [facility] [address] [facility] [id number] [place] [address] January, [facility] [place] [facility] [address] [id number] [place] [address] January, [facility] [place] [facility] [address] [id number] [place] [address] January, [facility] [place] [facility] [address] [id number] [place] [address] January, [facility] [place] [facility] [address] [id number] [place] [address] Nov, [facility] [place] [facility] [address] [id number] [place] [address] Nov, [facility] [place] [facility] [address] [id number] [place] [address] Nov, [facility] [place] [facility] [address] [id number] [place] [address] Nov, [facility] [place] [facility] [address] [id number] [place] [address] Oct, [facility] [place] [facility] [address] [id number] [place] [address] Oct, [facility] [place] [facility] [address] [id number] [place] [address] Oct, [facility] [place] [facility] [address] [id number] [place] [address] Oct, [facility] [place] [facility] [address] [id number] [place] [address] Oct, [facility] [place] [facility] [address] [id number] [place] [address] Oct, [facility] [place] [facility] [address] [id number] [place] [address] 14 Oct, 2013 [facility] [place] [facility] [address] [id number] [place] [address] 14 Oct, 2013 [facility] [place] [facility] [address] [facility] [id number] [place] [address] 13 Oct, 2013 IMMUNIZATIONS No Known Immunizations SOCIAL HISTORY Never Assessed REASON FOR VISIT PLAN OF CARE VITAL SIGNS Height 70 in 2013-10-23 Weight 292.3 lbs 2013-10-23 Temperature 97.7 degrees Fahrenheit 2013-10-23 Heart Rate 76 bpm 2013-10-23 Respiratory Rate 18 2013-10-23 Blood pressure systolic 132 mmHg 2013-10-23 Blood pressure diastolic 84 mmHg 2013-10-23 MEDICATIONS Unknown Medications RESULTS No Results PROCEDURES Procedure Date Ordered Result Body Site ELECTROCARDIOGRAM, TRACING Oct 23, 2013 INSTRUCTIONS MEDICATIONS ADMINISTERED No Known Medications [...] Skull Surgery 1992 Hospitalization History attempted suicide 2006
--- OUTSIDE RECORDS SUMMARY | 2020-01-26 19:42 | XMS REPORT ---
Author Author Deon Avila Doctor Organization [facility] Address Unknown Phone Unavailable Care Team Providers Care Senior Program Analyst Name Role Phone Migration, Doctor Unavailable Unavailable PROBLEMS Type Condition ICD9-CM Code [id number] Code Onset Dates Condition S tatus SNOMED Code Problem Hypogonadism in male E29.1 Active 97562674 Problem Morbid obesity due to excess calories E66.01 Active 587815849 Problem Mood disorder F39 Active 674326 05 Problem Other chronic pain G89.29 Active 8 3826459 Problem Generalized anxiety disorder F41.1 A ctive 83965265 Problem Lumbago with sciatica, left side M54.42 Active 896055625 Problem Bipolar disorder, curr episode mixed, severe, wi th psychotic features F31.64 Active 812954161 Problem Anxiety F41.9 Active 21508720 Problem Low back pain M54.5 Active 745243 007 Problem Observed sleep apnea G47.30 Active 83083709 Problem Acute left-sided low back pain with left-sided sciatica M54.42 Active 779609643 ALLERGIES No Information ENCOUNTERS Encounter Location Date Diagnosis [place] [address] [address] Jul, Lumbago with sciatica, left side M54.42 and Other chronic pain G89.29 [place] [address] [address] Jun, [place] [address] [address] 07 Jun, 2019 Bipolar disorder, curr episode mixed, se kolton, with psychotic features F31.64 [place] [address] [address] May, Low back pain M54.5 ; Other chronic pain G89.29 ; Morbid obesity due to excess calories E66.01 and Family history of diabetes mellitus Z83.3 [place] [address] [address] Apr, BMI 40.0-44.9, adult Z68.41 ; Bipolar di sorder, curr episode mixed, severe, with psychotic features F31.64 and Morbid obesity E66.01 [place] [address] [address] Mar, Bipolar disorder, curr episode mixed, se kolton, with psychotic features F31.64 [facility] [address] [place] [id number] [place] [address] Mar, Acute left-sided low back pa in with left-sided sciatica M54.42 [place] [address] [address] Mar, [place] [address] [address] Mar, Bipolar disorder, curr episode mixed, se kolton, with psychotic features F31.64 ; BMI 40.0-44.9, adult Z68.41 and Morbid obesity E66.01 [facility] IN [facility] [address] [place] [id number] [place] [address] January, Strain of lumbar region, ini tial encounter S39.012A [place] [address] [address] Dec, Snoring R06.83 [place] [address] [address] Dec, Bipolar disorder, curr episode mixed, se kolton, with psychotic features F31.64 ; BMI 40.0-44.9, adult Z68.41 and Morbid obesity E66.01 [place] [address] [address] Nov, Snoring R06.83 and Observed sleep apnea G47.30 [place] [address] [address] Oct, Bipolar disorder, curr episode mixed, se kolton, with psychotic features F31.64 and BMI 40.0-44.9, adult Z68.41 [facility] [address] [address] May, Low back pain M54.5 and Cervicalgia M54. 2 [place] [address] [address] Apr, Low back pain M54.5 ; Bipolar disorder, curr episode mixed, severe, with psychotic features F31.64 ; Hypogonadism in male E29.1 ; Morbid obesity due to excess calories E66.01 ; Mood disorder F39 and Cervicalgia M54.2 [place] [address] [address] Apr, Bipolar disorder, curr episode mixed, se kolton, with psychotic features F31.64 and BMI 40.0-44.9, adult Z68.41 [facility] [address] [facility] [id number] [address] [place] [address] Apr, Hand, foot and mouth disease B08.4 and Ingrown toenail of right foot with infection L60.0 [place] [address] [address] January, Bipolar disorder, curr episode mixed, se kolton, with psychotic features F31.64 and BMI 40.0-44.9, adult Z68.41 [place] [address] [address] Dec, Bipolar disorder, curr episode mixed, se kolton, with psychotic features F31.64 [place] [address] [address] Aug, Bipolar disorder, curr episode mixed, se kolton, with psychotic features F31.64 [place] [address] [address] Apr, Bipolar disorder, curr episode mixed, se kolton, with psychotic features F31.64 [place] [address] [address] Mar, Bipolar disorder, curr episode mixed, se kolton, with psychotic features F31.64 [facility] [address] [place] [address] Mar, Bipolar disorder, curr episode mixed, se kolton, with psychotic features F31.64 [facility] [address] [place] [address] Nov, Bipolar disorder, curr episode mixed, se kolton, with psychotic features F31.64 [facility] [address] [address] Oct, Bipolar disorder, curr episode mixed, se kolton, with psychotic features F31.64 [facility] [address] [address] Oct, Bipolar disorder, curr episode mixed, se kolton, with psychotic features F31.64 [facility] [address] [place] [address] Sep, [facility] [address] [address] Sep, Bipolar disorder, curr episode mixed, se kolton, with psychotic features F31.64 [facility] [address] [address] Sep, Bipolar disorder, curr episode mixed, se kolton, with psychotic features F31.64 [facility] [address] [place] [address] Sep, Bipolar disorder, curr episode mixed, se kolton, with psychotic features F31.64 and Generalized anxiety disorder F41.1 [facility] [address] [place] [address] Jul, Bipolar disorder, curr episode mixed, se kolton, with psychotic features F31.64 and Generalized anxiety disorder F41.1 [facility] [address] [address] Jul, [facility] [address] [address] Jul, Bipolar disorder, curr episode mixed, se kolton, with psychotic features F31.64 [place] [address] [address] Jul, Bipolar disorder, curr episode mixed, se kolton, with psychotic features F31.64 and Generalized anxiety disorder F41.[address] [address] Jul, Bipolar disorder, curr episode mixed, se kolton, with psychotic features F31.64 [place] [address] [address] Jul, Bipolar II disorder F31.81 and Generaliz ed anxiety disorder F41.[address] [address] Feb, Dental examination Z01.[address] [address] Dec, Dental examination Z01.20 [facility] [address] [id number] Nov, Dental examination Z01.20 [facility] [address] [id number] Sep, Dental examination Z01.[address] [address] Jul, Hypogonadism in male E29.[address] [address] 07 Jun, 2015 Diabetes mellitus without mention of com plication, type II or unspecified type, not stated as uncontrolled 250.00 and Testicular pain, right 608.[address] [address] May, Hypogonadism in male 257.[address] [address] Apr, [address] [id number] [place] [address] Mar, Hypogonadism in male 257.2 [facility] [address] [address] Mar, [facility] [address] [address] Mar, [facility] [address] [address] Mar, Hypogonadism in male 257.2 [facility] [address] [address] Feb, Hypogonadism male 257.2 [facility] [address] [address] Feb, Diabetes mellitus without mention of com plication, type II or unspecified type, not stated as uncontrolled 250.00 ; Epididymitis 604.90 and Hypogonadism in male 257.2 [facility] [address] [address] Feb, [facility] [address] [address] Feb, [facility] [address] [address] Feb, Testicular pain, right 608.9 ; Diabetes mellitus without mention of complication, type II or unspecified type, not stated as uncontrolled 250.00 and Family history of heart disease V17.49 [facility] [address] [address] Feb, Testicular pain, right 608.9 and Family history of heart disease V17.49 [facility] [address] [address] Feb, [facility] [address] [address] Dec, [facility] [address] [address] Dec, [facility] [place] [facility] [address] [facility] [id number] [place] [address] 16 Oct, 2014 [facility] [place] [facility] [address] [id number] [place] [address] Oct, [facility] [place] [facility] [address] [id number] [place] [address] Sep, [facility] [place] [facility] [address] [id number] [place] [address] Sep, [facility] [place] [facility] [address] [id number] [place] [address] Sep, [facility] [place] [facility] [address] [id number] [place] [address] Sep, [facility] [place] [facility] [address] [id number] [place] [address] Sep, [facility] [place] [facility] [address] [id number] [place] [address] Sep, [facility] [place] [facility] [address] [id number] [place] [address] Sep, [facility] [place] [facility] [address] [id number] [place] [address] Sep, [facility] [place] [facility] [address] [id number] [place] [address] Sep, [facility] [place] [facility] [address] [id number] [place] [address] Sep, [facility] [place] [facility] [address] [id number] [place] [address] Feb, [facility] [place] [facility] [address] [id number] [place] [address] Feb, [facility] [place] [facility] [address] [id number] [place] [address] January, [facility] [place] [facility] [address] [id number] [place] [address] January, [facility] [place] [facility] [address] [id number] [place] [address] January, [facility] [address] [id number] [place] [address] January, [facility] [address] [id number] [place] [address] January, [facility] [address] [id number] [place] [address] January, [facility] [address] [id number] [place] [address] Nov, [facility] [address] [id number] [place] [address] Nov, [facility] [address] [id number] [place] [address] Nov, [facility] [address] [id number] [place] [address] Nov, [facility] [address] [id number] [place] [address] Oct, [facility] [address] [id number] [place] [address] Oct, [facility] [address] [id number] [place] [address] Oct, [facility] [address] [id number] [place] [address] Oct, [facility] [address] [id number] [place] [address] Oct, [facility] [address] [id number] [place] [address] Oct, [facility] [id number] [place] [address] 14 Oct, 2013 [facility] [address] [id number] [place] [address] 14 Oct, 2013 [facility] [address] [id number] [place] [address] 13 Oct, 2013 IMMUNIZATIONS No Known Immunizations [...]
--- OUTSIDE RECORDS SUMMARY | 2020-01-26 19:42 | XMS REPORT ---
Author Author Deon CORONEL Organization [facility] Address [address] [place] [address] Care Team Providers Care Fabric Designer Name Role Phone LUCIANO CORONEL Unavailable PROBLEMS Type Condition ICD9-CM Code [id number] Code Onset Dates Condition S tatus SNOMED Code Problem Hypogonadism in male E29.1 Active 23759120 Problem Morbid obesity due to excess calories E66.01 Active 114744659 Problem Mood disorder F39 Active 342596 05 Problem Other chronic pain G89.29 Active 8 1397105 Problem Generalized anxiety disorder F41.1 A ctive 16044241 Problem Lumbago with sciatica, left side M54.42 Active 189779721 Problem Bipolar disorder, curr episode mixed, severe, wi th psychotic features F31.64 Active 141344483 Problem Anxiety F41.9 Active 32746970 Problem Low back pain M54.5 Active 096136 007 Problem Observed sleep apnea G47.30 Active 94376695 Problem Acute left-sided low back pain with left-sided sciatica M54.42 Active 834855154 ALLERGIES No Information ENCOUNTERS Encounter Location Date Diagnosis [place] [address] [address] Jul, Lumbago with sciatica, left side M54.42 and Other chronic pain G89.29 [facility] [address] [address] Jun, [address] [address] Jun, Bipolar disorder, curr episode mixed, se kol[place], with psychotic features F31.64 [place] [address] [address] May, Low back pain M54.5 ; Other chronic pain G89.29 ; Morbid obesity due to excess calories E66.01 and Family history of diabetes mellitus Z83.3 [place] [address] [address] Apr, BMI 40.0-44.9, adult Z68.41 ; Bipolar di sorder, curr episode mixed, severe, with psychotic features F31.64 and Morbid obesity E66.01 [place] [address] [address] Mar, Bipolar disorder, curr episode mixed, se kolton, with psychotic features F31.64 [facility] [address] [place] [address] Mar, Acute left-sided low back pa in with left-sided sciatica M54.[address] [address] Mar, [address] [address] Mar, Bipolar disorder, curr episode mixed, se kolton, with psychotic features F31.64 ; BMI 40.0-44.9, adult Z68.41 and Morbid obesity E66.01 [facility] [place] [address] [place] [id number] [place] [address] January, Strain of lumbar region, ini tial encounter S39.012A [address] [address] Dec, Snoring R06.[address] [address] Dec, Bipolar disorder, curr episode mixed, se kolton, with psychotic features F31.64 ; BMI 40.0-44.9, adult Z68.41 and Morbid obesity E66.01 [place] [address] [address] Nov, Snoring R06.83 and Observed sleep apnea G47.[address] [address] 15 Oct, 2018 Bipolar disorder, curr episode mixed, se kolton, with psychotic features F31.64 and BMI 40.0-44.9, adult Z68.41 [place] [address] [address] May, Low back pain M54.5 and Cervicalgia M54. 2 [place] [address] [address] Apr, Low back pain M54.5 ; Bipolar disorder, curr episode mixed, severe, with psychotic features F31.64 ; Hypogonadism in male E29.1 ; Morbid obesity due to excess calories E66.01 ; Mood disorder F39 and Cervicalgia M54.2 [place] [address] [address] Apr, Bipolar disorder, curr episode mixed, se kolton, with psychotic features F31.64 and BMI 40.0-44.9, adult Z68.41 [facility] [address] [facility] [id number] [address] [place] [address] Apr, Hand, foot and mouth disease B08.4 and Ingrown toenail of right foot with infection L60.[address] [address] January, Bipolar disorder, curr episode mixed, se kolton, with psychotic features F31.64 and BMI 40.0-44.9, adult Z68.41 [place] [address] [address] Dec, Bipolar disorder, curr episode mixed, se kolton, with psychotic features F31.64 [place] [address] [address] Aug, Bipolar disorder, curr episode mixed, se kolton, with psychotic features F31.64 [place] [address] [address] Apr, Bipolar disorder, curr episode mixed, se kolton, with psychotic features F31.64 [facility] [address] [place] [address] Mar, Bipolar disorder, curr episode mixed, se kolton, with psychotic features F31.64 [facility] [address] [place] [address] Mar, Bipolar disorder, curr episode mixed, se kolton, with psychotic features F31.64 [facility] [address] [place] [address] Nov, Bipolar disorder, curr episode mixed, se kolton, with psychotic features F31.64 [facility] [address] [place] [address] Oct, Bipolar disorder, curr episode mixed, se kolton, with psychotic features F31.64 [facility] [address] [address] Oct, Bipolar disorder, curr episode mixed, se kolton, with psychotic features F31.64 [facility] [address] [address] Sep, [facility] [address] [place] [address] Sep, Bipolar disorder, curr episode mixed, se kolotn, with psychotic features F31.64 [facility] [address] [place] [address] Sep, Bipolar disorder, curr episode mixed, se kolton, with psychotic features F31.64 [facility] [address] [address] Sep, Bipolar disorder, curr episode mixed, se kolton, with psychotic features F31.64 and Generalized anxiety disorder F41.1 [facility] [address] [place] [address] Jul, Bipolar disorder, curr episode mixed, se kolton, with psychotic features F31.64 and Generalized anxiety disorder F41.1 [facility] [address] [address] Jul, [facility] [address] [place] [address] Jul, Bipolar disorder, curr episode mixed, se kolton, with psychotic features F31.64 [place] [address] [address] 15 Jul, 2016 Bipolar disorder, curr episode mixed, se kolton, with psychotic features F31.64 and Generalized anxiety disorder F41.1 [place] [address] [address] Jul, Bipolar disorder, curr episode mixed, se kolton, with psychotic features F31.64 [place] [address] [address] Jul, Bipolar II disorder F31.81 and Generaliz ed anxiety disorder F41.[address] [address] Feb, Dental examination Z01.20 [place] [address] [address] Dec, Dental examination Z01.20 [facility] [address] [id number] Nov, Dental examination Z01.20 [facility] [address] [id number] Sep, Dental examination Z01.20 [place] [address] [address] Jul, Hypogonadism in male E29.[address] [address] 07 Jun, 2015 Diabetes mellitus without mention of com plication, type II or unspecified type, not stated as uncontrolled 250.00 and Testicular pain, right 608.[address] [address] 23 May, 2015 Hypogonadism in male 257.[address] [id number] [place] [address] Apr, [facility] [address] [address] Mar, Hypogonadism in male 257.2 [facility] [address] [address] Mar, [facility] [address] [address] Mar, [facility] [address] [address] Mar, Hypogonadism in male 257.2 [facility] [address] [address] Feb, Hypogonadism male 257.2 [facility] [address] [address] Feb, Diabetes mellitus without mention of com plication, type II or unspecified type, not stated as uncontrolled 250.00 ; Epididymitis 604.90 and Hypogonadism in male 257.2 [facility] [address] [address] Feb, [facility] [address] [address] Feb, [facility] [address] [address] Feb, Testicular pain, right 608.9 ; Diabetes mellitus without mention of complication, type II or unspecified type, not stated as uncontrolled 250.00 and Family history of heart disease V17.49 [facility] [address] [address] Feb, Testicular pain, right 608.9 and Family history of heart disease V17.49 [facility] [address] [address] Feb, [facility] [address] [address] Dec, [facility] [address] [id number] [place] [address] Dec, [facility] [address] [id number] [place] [address] 16 Oct, 2014 [facility] [address] [id number] [place] [address] 16 Oct, 2014 [facility] [address] [id number] [place] [address] Sep, [facility] [address] [id number] [place] [address] Sep, [facility] [address] [id number] [place] [address] Sep, [facility] [address] [id number] [place] [address] Sep, [facility] [address] [id number] [place] [address] Sep, [facility] [address] [id number] [place] [address] Sep, [facility] [address] [id number] [place] [address] Sep, [facility] [address] [id number] [place] [address] Sep, [facility] [address] [id number] [place] [address] Sep, [facility] [address] [id number] [place] [address] Sep, [facility] [address] [id number] [place] [address] Feb, [facility] [address] [id number] [place] [address] Feb, [facility] [address] [id number] [place] [address] January, [facility] [address] [id number] [place] [address] January, [facility] [address] [facility] [id number] [address] January, [facility] [address] [id number] [place] [address] January, [facility] [address] [id number] [place] [address] January, [facility] [address] [id number] [place] [address] January, [facility] [address] [id number] [place] [address] Nov, [facility] [address] [id number] [place] [address] Nov, [facility] [address] [id number] [place] [address] Nov, [facility] [address] [id number] [place] [address] Nov, [facility] [address] [id number] [place] [address] Oct, [facility] [address] [id number] [place] [address] Oct, [facility] [address] [id number] [place] [address] Oct, [facility] [address] [id number] [place] [address] Oct, [facility] [address] [id number] [place] [address] Oct, [facility] [address] [id number] [place] [address] Oct, [facility] [address] [id number] [place] [address] 14 Oct, 2013 [facility] [address] [id number] [place] [address] 14 Oct, 2013 [facility] [address] [facility] [place] [id number] [place] [address] 13 Oct, 2013 IMMUNIZATIONS No Known Immunizations SOCIAL HISTORY Never Assessed REASON FOR VISIT PLAN OF CARE VITAL SIGNS Height 70 in 2014-01-25 Weight 291.2 lbs 2014-01-25 Temperature 98 degrees Fahrenheit 2014-01-25 Heart Rate 76 bpm 2014-01-25 Respiratory Rate 20 2014-01-25 Blood pressure systolic 136 mmHg 2014-01-25 Blood pressure diastolic 90 mmHg 2014-01-25 MEDICATIONS Unknown Medications RESULTS No Results PROCEDURES Procedure Date Ordered Result Body Site ASSAY OF INSULIN January 25, 2014 GLYCATED HEMOGLOBIN TEST January 25, 2014 LIPID PANEL January 25, 2014 VENIPUNCT, ROUTINE* January 25, 2014 INSTRUCTIONS MEDICATIONS ADMINISTERED No Known Medications MEDICAL [...]
--- OUTSIDE RECORDS SUMMARY | 2020-01-26 19:42 | XMS REPORT ---
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 Name Role Phone LUCIANO CORONEL Unavailable PROBLEMS Type Condition ICD9-CM Code CSH63-LC Code Onset Dates Condition S tatus SNOMED Code Problem Hypogonadism in male E29.1 Active 54548288 Problem Morbid obesity due to excess calories E66.01 Active 337986255 Problem Mood disorder F39 Active 296890 05 Problem Other chronic pain G89.29 Active 8 4859006 Problem Generalized anxiety disorder F41.1 A ctive 30496916 Problem Lumbago with sciatica, left side M54.42 Active 456830242 Problem Bipolar disorder, curr episode mixed, severe, wi th psychotic features F31.64 Active 092391265 Problem Anxiety F41.9 Active 45978141 Problem Low back pain M54.5 Active 415208 007 Problem Observed sleep apnea G47.30 Active 52964132 Problem Acute left-sided low back pain with left-sided sciatica M54.42 Active 222776645 ALLERGIES No Information ENCOUNTERS Encounter Location Date Diagnosis [place] [address] [address] Jul, Lumbago with sciatica, left side M54.42 and Other chronic pain G89.29 [facility] [address] [address] Jun, [address] [address] Jun, Bipolar disorder, curr episode mixed, se kol[place], with psychotic features F31.64 [place] [address] [address] May, Low back pain M54.5 ; Other chronic pain G89.29 ; Morbid obesity due to excess calories E66.01 and Family history of diabetes mellitus Z83.3 [place] [address] [address] Apr, BMI 40.0-44.9, adult Z68.41 ; Bipolar di sorder, curr episode mixed, severe, with psychotic features F31.64 and Morbid obesity E66.01 [place] [address] [address] Mar, Bipolar disorder, curr episode mixed, se kolton, with psychotic features F31.64 [facility] [address] [place] [address] Mar, Acute left-sided low back pa in with left-sided sciatica M54.[address] [address] Mar, [address] [address] Mar, Bipolar disorder, curr episode mixed, se kolton, with psychotic features F31.64 ; BMI 40.0-44.9, adult Z68.41 and Morbid obesity E66.01 [facility] [place] [address] [address] [place] [id number] [place] [address] January, Strain of lumbar region, ini tial encounter S39.012A [address] [address] Dec, Snoring R06.[address] [address] Dec, Bipolar disorder, curr episode mixed, se kolton, with psychotic features F31.64 ; BMI 40.0-44.9, adult Z68.41 and Morbid obesity E66.01 [place] [address] [address] Nov, Snoring R06.83 and Observed sleep apnea G47.[address] [address] 15 Oct, 2018 Bipolar disorder, curr episode mixed, se kolton, with psychotic features F31.64 and BMI 40.0-44.9, adult Z68.41 [place] [address] [address] May, Low back pain M54.5 and Cervicalgia M54. 2 [place] [address] [address] Apr, Low back pain M54.5 ; Bipolar disorder, curr episode mixed, severe, with psychotic features F31.64 ; Hypogonadism in male E29.1 ; Morbid obesity due to excess calories E66.01 ; Mood disorder F39 and Cervicalgia M54.2 [place] [address] [address] Apr, Bipolar disorder, curr episode mixed, se kolton, with psychotic features F31.64 and BMI 40.0-44.9, adult Z68.41 [facility] [address] [facility] [id number] [address] [place] [address] Apr, Hand, foot and mouth disease B08.4 and Ingrown toenail of right foot with infection L60.[address] [address] January, Bipolar disorder, curr episode mixed, se kolton, with psychotic features F31.64 and BMI 40.0-44.9, adult Z68.41 [place] [address] [address] Dec, Bipolar disorder, curr episode mixed, se kolton, with psychotic features F31.64 [place] [address] [address] Aug, Bipolar disorder, curr episode mixed, se kolton, with psychotic features F31.64 [place] [address] [address] Apr, Bipolar disorder, curr episode mixed, se kolton, with psychotic features F31.64 [facility] [address] [place] [address] Mar, Bipolar disorder, curr episode mixed, se kolton, with psychotic features F31.64 [facility] [address] [place] [address] Mar, Bipolar disorder, curr episode mixed, se kolton, with psychotic features F31.64 [facility] [address] [place] [address] Nov, Bipolar disorder, curr episode mixed, se kolton, with psychotic features F31.64 [facility] [address] [place] [address] Oct, Bipolar disorder, curr episode mixed, se kolton, with psychotic features F31.64 [facility] [address] [address] Oct, Bipolar disorder, curr episode mixed, se kolton, with psychotic features F31.64 [facility] [address] [address] Sep, [facility] [address] [place] [address] Sep, Bipolar disorder, curr episode mixed, se kolton, with psychotic features F31.64 [facility] [address] [place] [address] Sep, Bipolar disorder, curr episode mixed, se kolton, with psychotic features F31.64 [facility] [address] [address] Sep, Bipolar disorder, curr episode mixed, se kolton, with psychotic features F31.64 and Generalized anxiety disorder F41.1 [facility] [address] [place] [address] Jul, Bipolar disorder, curr episode mixed, se kolton, with psychotic features F31.64 and Generalized anxiety disorder F41.1 [facility] [address] [address] Jul, [facility] [address] [place] [address] Jul, Bipolar disorder, curr episode mixed, se kolton, with psychotic features F31.64 [place] [address] [address] 15 Jul, 2016 Bipolar disorder, curr episode mixed, se kolton, with psychotic features F31.64 and Generalized anxiety disorder F41.1 [place] [address] [address] Jul, Bipolar disorder, curr episode mixed, se kolton, with psychotic features F31.64 [place] [address] [address] Jul, Bipolar II disorder F31.81 and Generaliz ed anxiety disorder F41.[address] [address] Feb, Dental examination Z01.20 [place] [address] [address] Dec, Dental examination Z01.20 [facility] [address] [id number] Nov, Dental examination Z01.20 [facility] [address] [id number] Sep, Dental examination Z01.20 [place] [address] [address] Jul, Hypogonadism in male E29.[address] [address] 07 Jun, 2015 Diabetes mellitus without mention of com plication, type II or unspecified type, not stated as uncontrolled 250.00 and Testicular pain, right 608.[address] [address] 23 May, 2015 Hypogonadism in male 257.[address] [id number] [place] [address] Apr, [facility] [address] [address] Mar, Hypogonadism in male 257.2 [facility] [address] [address] Mar, [facility] [address] [address] Mar, [facility] [address] [address] Mar, Hypogonadism in male 257.2 [facility] [address] [address] Feb, Hypogonadism male 257.2 [facility] [address] [address] Feb, Diabetes mellitus without mention of com plication, type II or unspecified type, not stated as uncontrolled 250.00 ; Epididymitis 604.90 and Hypogonadism in male 257.2 [facility] [address] [address] Feb, [facility] [address] [address] Feb, [facility] [address] [address] Feb, Testicular pain, right 608.9 ; Diabetes mellitus without mention of complication, type II or unspecified type, not stated as uncontrolled 250.00 and Family history of heart disease V17.49 [facility] [address] [address] Feb, Testicular pain, right 608.9 and Family history of heart disease V17.49 [facility] [address] [address] Feb, [facility] [address] [address] Dec, [facility] [address] [id number] [place] [address] Dec, [facility] [address] [id number] [place] [address] 16 Oct, 2014 [facility] [address] [id number] [place] [address] 16 Oct, 2014 [facility] [address] [id number] [place] [address] Sep, [facility] [address] [id number] [place] [address] Sep, [facility] [address] [id number] [place] [address] Sep, [facility] [address] [id number] [place] [address] Sep, [facility] [address] [id number] [place] [address] Sep, [facility] [address] [id number] [place] [address] Sep, [facility] [address] [id number] [place] [address] Sep, [facility] [address] [id number] [place] [address] Sep, [facility] [address] [id number] [place] [address] Sep, [facility] [address] [id number] [place] [address] Sep, [facility] [address] [id number] [place] [address] Feb, [facility] [address] [id number] [place] [address] Feb, [facility] [address] [id number] [place] [address] January, [facility] [address] [id number] [place] [address] January, [facility] [address] [facility] [id number] [place] [address] January, [facility] [address] [id number] [place] [address] January, [facility] [address] [id number] [place] [address] January, [facility] [address] [id number] [place] [address] January, [facility] [address] [id number] [place] [address] Nov, [facility] [address] [id number] [place] [address] Nov, [facility] [address] [id number] [place] [address] Nov, [facility] [address] [id number] [place] [address] Nov, [facility] [address] [id number] [place] [address] Oct, [facility] [address] [id number] [place] [address] Oct, [facility] [address] [id number] [place] [address] Oct, [facility] [address] [id number] [place] [address] Oct, [facility] [address] [id number] [place] [address] Oct, [facility] [address] [id number] [place] [address] Oct, [facility] [address] [id number] [place] [address] 14 Oct, 2013 [facility] [address] [id number] [place] [address] 14 Oct, 2013 [facility] [address] [facility] [id number] [place] [address] 13 Oct, 2013 IMMUNIZATIONS No Known Immunizations [...]
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
--- OUTSIDE RECORDS SUMMARY | 2020-01-26 19:43 | XMS REPORT ---
Author Author Deon MUNSON Organization [facility] Address [address] [place] [address] Care Team Providers Care Spread Cutter Name Role Phone ED MUNSON Unavailable PROBLEMS Type Condition ICD9-CM Code [id number] Code Onset Dates Condition S tatus SNOMED Code Problem Bipolar disorder, curr episode mixed, severe, wi th psychotic features F31.64 Active 912319514 Problem Generalized anxiety disorder F41.1 A ctive 21236533 Problem Low back pain M54.5 Active 205139 007 Problem Observed sleep apnea G47.30 Active 91101460 Problem Hypogonadism in male E29.1 Active 59074980 Problem Morbid obesity due to excess calories E66.01 Active 858403698 Problem Mood disorder F39 Active 291393 05 Problem Anxiety F41.9 Active 85448008 ALLERGIES No Information ENCOUNTERS Encounter Location Date Diagnosis [facility] [address] [id number] [address] [place] [address] Mar, [facility] [address] [id number] [address] [place] [address] January, Strain of lumbar region, ini tial encounter S39.012A [facility] [address] [id number] [address] [place] [address] Dec, Snoring R06.83 [facility] [address] [facility] [id number] [address] [place] [address] Dec, Bipolar disorder, curr episo de mixed, severe, with psychotic features F31.64 ; BMI 40.0-44.9, adult Z68.41 and Morbid obesity E66.01 [facility] [address] [facility] [id number] [address] [place] [address] Nov, Snoring R06.83 and Observed sleep apnea G47.30 [place] [address] [facility] [id number] [address] [place] [address] 15 Oct, 2018 Bipolar disorder, curr episo de mixed, severe, with psychotic features F31.64 and BMI 40.0-44.9, adult Z68.41 [place] [address] [id number] [address] [place] [address] May, Low back pain M54.5 and Cerv icalgia M54.2 [place] [address] [id number] [address] [place] [address] Apr, Low back pain M54.5 ; Bipola r disorder, curr episode mixed, severe, with psychotic features F31.64 ; Hypogonadism in male E29.1 ; Morbid obesity due to excess calories E66.01 ; Mood disorder F39 and Cervicalgia M54.2 [place] [address] [id number] [address] [place] [address] Apr, Bipolar disorder, curr episo de mixed, severe, with psychotic features F31.64 and BMI 40.0-44.9, adult Z68.41 [facility] [address] [id number] [address] [place] [address] Apr, Hand, foot and mouth disease B08.4 and Ingrown toenail of right foot with infection L60.0 [place] [address] [id number] [address] [place] [phone] January, Bipolar disorder, curr episo de mixed, severe, with psychotic features F31.64 and BMI 40.0-44.9, adult Z68.41 [place] [address] [id number] [address] [place] [address] Dec, Bipolar disorder, curr episo de mixed, severe, with psychotic features F31.64 [facility] [address] [id number] [address] [place] [address] Aug, Bipolar disorder, curr episo de mixed, severe, with psychotic features F31.64 [place] [address] [id number] [address] [place] [id number] Apr, Bipolar disorder, curr episo de mixed, severe, with psychotic features F31.64 [facility] [address] [facility] [id number] [address] [place] [address] Mar, Bipolar disorder, curr episo de mixed, severe, with psychotic features F31.64 [facility] [address] [id number] [address] [place] [phone] Mar, Bipolar disorder, curr episo de mixed, severe, with psychotic features F31.64 [facility] [address] [id number] [address] [place] [address] Nov, Bipolar disorder, curr episo de mixed, severe, with psychotic features F31.64 [place] [address] [id number] [address] [place] [address] Oct, Bipolar disorder, curr episo de mixed, severe, with psychotic features F31.64 [place] [address] [id number] [address] [place] [phone] Oct, Bipolar disorder, curr episo de mixed, severe, with psychotic features F31.64 [place] [address] [id number] [address] [place] [address] Sep, [facility] [address] [id number] [address] [place] [id number] Sep, Bipolar disorder, curr episo de mixed, severe, with psychotic features F31.64 [place] [address] [id number] [address] [place] [address] Sep, Bipolar disorder, curr episo de mixed, severe, with psychotic features F31.64 [place] [address] [id number] [address] [place] [address] Sep, Bipolar disorder, curr episo de mixed, severe, with psychotic features F31.64 and Generalized anxiety disorder F41.1 [place] [address] [id number] [address] [place] [address] Jul, Bipolar disorder, curr episo de mixed, severe, with psychotic features F31.64 and Generalized anxiety disorder F41.1 [facility] [address] [id number] [address] [place] [address] Jul, [facility] [address] [facility] [id number] [address] [place] [address] Jul, Bipolar disorder, curr episo de mixed, severe, with psychotic features F31.64 [facility] [address] [id number] [address] [place] [address] Jul, Bipolar disorder, curr episo de mixed, severe, with psychotic features F31.64 and Generalized anxiety disorder F41.1 [facility] [address] [facility] [id number] [address] [place] [address] Jul, Bipolar disorder, curr episo de mixed, severe, with psychotic features F31.64 [place] [address] [facility] [id number] [address] [place] [address] Jul, Bipolar II disorder F31.81 a nd Generalized anxiety disorder F41.1 [facility] [address] [facility] [id number] [address] [place] [address] Feb, Dental examination Z01.20 [facility] [address] [facility] [id number] [address] [place] [address] Dec, Dental examination Z01.20 [facility] [address] [id number] [address] [place] [id number] Nov, Dental examination Z01.20 [facility] [address] [id number] [address] [place] [address] [id number] Sep, Dental examination Z01.20 [facility] [address] [facility] [id number] [address] [place] [address] Jul, Hypogonadism in male E29.1 [facility] [address] [facility] [id number] [address] [place] [id number] 07 Jun, 2015 Diabetes mellitus without me ntion of complication, type II or unspecified type, not stated as uncontrolled 250.00 and Testicular pain, right 608.9 [facility] [address] [id number] [address] [place] [address] May, Hypogonadism in male 257.2 [facility] [address] [id number] [address] [place] [address] Apr, [facility] [address] [id number] [address] [place] [address] Mar, Hypogonadism in male 257.2 [facility] [address] [id number] [address] [place] [id number] Mar, [facility] [address] [id number] [address] [place] [address] Mar, [facility] [address] [id number] [address] [place] [address] Mar, Hypogonadism in male 257.2 [facility] [address] [id number] [address] [place] [phone] Feb, Hypogonadism male 257.2 [facility] [address] [id number] [address] [place] [address] Feb, Diabetes mellitus without me ntion of complication, type II or unspecified type, not stated as uncontrolled 250.00 ; Epididymitis 604.90 and Hypogonadism in male 257.2 [facility] [address] [id number] [address] [place] [address] Feb, [facility] [address] [id number] [address] [place] [address] Feb, [facility] [address] [id number] [address] [place] [address] Feb, Testicular pain, right 608.9 ; Diabetes mellitus without mention of complication, type II or unspecified type, not stated as uncontrolled 250.00 and Family history of heart disease V17.49 [facility] [address] [id number] [address] [place] [id number] 03 Feb, 2015 Testicular pain, right 608.9 and Family history of heart disease V17.49 [facility] [address] [id number] [address] [place] [id number] 02 Feb, 2015 [facility] [address] [id number] [address] [place] [address] 14 Dec, 2014 [facility] [address] [id number] [address] [place] [phone] Dec, [facility] [address] [id number] [address] [place] [address], [place] [address] 16 Oct, 2014 [facility] [address] [id number] [address] [place] [id number] 16 Oct, 2014 [facility] [address] [id number] [address] [place] [phone] Sep, [facility] [address] [id number] [address] [place] [phone] 16 Sep, 2014 [facility] [address] [id number] [address] [place] [phone] Sep, [facility] [address] [id number] [address] [place] [id number] 16 Sep, 2014 [facility] [address] [id number] [address] [place] [id number] 15 Sep, 2014 [facility] [address] [id number] [address] [place] [phone] 15 Sep, 2014 [facility] [address] [id number] [address] [place] [id number] 14 Sep, 2014 [facility] [address] [id number] [address] [place] [phone] 14 Sep, 2014 [facility] [address] [id number] [address] [place] [id number] 13 Sep, 2014 [facility] [address] [id number] [address] [place] [address], [place] [address] Sep, [facility] [address] [id number] [address] [place] [address], [place] [address] Feb, [facility] [address] [id number] [address] [place] [address], [place] [address] Feb, [facility] [address] [id number] [address] [place] [address], [place] [address] January, [facility] [address] [id number] [address] [place] [address], [place] [address] January, [facility] [address] [id number] [address] [place] [address], [place] [address] January, [facility] [address] [id number] [address] [place] [address], [place] [address] January, [facility] [address] [id number] [address] [place] [address], [place] [address] January, [facility] [address] [id number] [address] [place] [address], [place] [address] January, [facility] [address] [id number] [address] [place] [address], [place] [address] Nov, [facility] [address] [id number] [address] [place] [address], [place] [address] Nov, [facility] [address] [id number] [address] [place] [address], [place] [address] Nov, [facility] [address] [id number] [address] [place] [address], [place] [address] Nov, [facility] [address] [id number] [address] [place] [address], [place] [address] Oct, [facility] [address] [id number] [address] [place] [address], [place] [address] Oct, [facility] [address] [id number] [address] [place] [address], [place] [address] Oct, [facility] [address] [facility] [id number] [address] [place] [phone] Oct, [facility] [address] [facility] [id number] [address] [place] [phone] Oct, [facility] [address] [facility] [id number] [address] [place] [phone] Oct, [facility] [address] [facility] [id number] [address] [place] [address] Oct, [facility] [address] [facility] [id number] [address] [place] [phone] Oct, [facility] [address] [facility] [id number] [address] [place] [address] Oct, IMMUNIZATIONS No Known Immunizations SOCIAL HISTORY [...]
--- OUTSIDE RECORDS SUMMARY | 2020-01-26 19:43 | XMS REPORT ---
Author Author Deon CORONEL Organization [facility] [place] Address [address] [place] [address] Care Team Providers Care Staffing Mgr Name Role Phone LUCIANO CORONEL Unavailable PROBLEMS Type Condition ICD9-CM Code [id number] Code Onset Dates Condition S tatus SNOMED Code Problem Bipolar disorder, curr episode mixed, severe, wi th psychotic features F31.64 Active 391582665 Problem Generalized anxiety disorder F41.1 A ctive 41695318 Problem Hypogonadism in male E29.1 Active 42798866 Problem Observed sleep apnea G47.30 Active 74022448 Problem Acute left-sided low back pain with left-sided sciatica M54.42 Active 124743845 Problem Morbid obesity due to excess calories E66.01 Active 450982977 Problem Mood disorder F39 Active 480526 05 Problem Anxiety F41.9 Active 03004024 Problem Low back pain M54.5 Active 892863 007 ALLERGIES No Information ENCOUNTERS Encounter Location Date Diagnosis [facility] [place] [address] [facility] [id number] [address] [place] [phone] Aug, [facility] [place] [address] [place] [id number] [address] [place] [phone] May, [facility] [place] [address] [facility] [id number] [address] [place] [phone] Apr, BMI 40.0-44.9, adult Z68.41 ; Bipolar disorder, curr episode mixed, severe, with psychotic features F31.64 and Morbid obesity E66.01 [facility] [place] [address] [facility] [id number] [address] [place] [phone] Mar, Bipolar disorder, curr episo de mixed, severe, with psychotic features F31.64 [facility] [address] [facility] [id number] [address] [place] [phone] Mar, Acute left-sided low back pa in with left-sided sciatica M54.42 [place] [address] [phone] Mar, [place] [address] [place] [id number] [place] [phone] Mar, Bipolar disorder, curr episo de mixed, severe, with psychotic features F31.64 ; BMI 40.0-44.9, adult Z68.41 and Morbid obesity E66.01 [facility] [address] [place] [phone] January, Strain of lumbar region, ini tial encounter S39.012A [place] [address] [address] Dec, Snoring R06.83 [place] [address] [address] Dec, Bipolar disorder, curr episo de mixed, severe, with psychotic features F31.64 ; BMI 40.0-44.9, adult Z68.41 and Morbid obesity E66.01 [place] [address] [address] Nov, Snoring R06.83 and Observed sleep apnea G47.30 [place] [address] [address] Oct, Bipolar disorder, curr episo de mixed, severe, with psychotic features F31.64 and BMI 40.0-44.9, adult Z68.41 [place] [address] [address] May, Low back pain M54.5 and Cerv icalgia M54.2 [place] [address] [place] [id number] [address] [place] [phone] Apr, Low back pain M54.5 ; Bipola r disorder, curr episode mixed, severe, with psychotic features F31.64 ; Hypogonadism in male E29.1 ; Morbid obesity due to excess calories E66.01 ; Mood disorder F39 and Cervicalgia M54.2 [place] [address] [place] [id number] [address] [place] [phone] Apr, Bipolar disorder, curr episo de mixed, severe, with psychotic features F31.64 and BMI 40.0-44.9, adult Z68.41 [facility] [address] [address] Apr, Hand, foot and mouth disease B08.4 and Ingrown toenail of right foot with infection L60.[address] [address] January, Bipolar disorder, curr episo de mixed, severe, with psychotic features F31.64 and BMI 40.0-44.9, adult Z68.41 [place] [address] [place] [id number] [address] [place] [phone] Dec, Bipolar disorder, curr episo de mixed, severe, with psychotic features F31.64 [place] [address] [place] [id number] [address] [place] [phone] Aug, Bipolar disorder, curr episo de mixed, severe, with psychotic features F31.64 [place] [address] [place] [id number] [address] [place] [phone] Apr, Bipolar disorder, curr episo de mixed, severe, with psychotic features F31.64 [place] [address] [place] [id number] [address] [place] [phone] Mar, Bipolar disorder, curr episo de mixed, severe, with psychotic features F31.64 [place] [address] [place] [id number] [address] [place] [phone] Mar, Bipolar disorder, curr episo de mixed, severe, with psychotic features F31.64 [place] [address] [place] [id number] [address] [place] [phone] Nov, Bipolar disorder, curr episo de mixed, severe, with psychotic features F31.64 [facility] [place] [address] [facility] [id number] [address] [place] [address] Oct, Bipolar disorder, curr episo de mixed, severe, with psychotic features F31.64 [facility] [place] [address] [facility] [id number] [address] [place] [phone] Oct, Bipolar disorder, curr episo de mixed, severe, with psychotic features F31.64 [facility] [place] [address] [facility] [id number] [address] [place] [phone] Sep, [facility] [place] [address] [place] [id number] [address] [place] [address] Sep, Bipolar disorder, curr episo de mixed, severe, with psychotic features F31.64 [place] [address] [place] [id number] [address] [place] [phone] Sep, Bipolar disorder, curr episo de mixed, severe, with psychotic features F31.64 [facility] [place] [address] [facility] [id number] [address] [place] [phone] Sep, Bipolar disorder, curr episo de mixed, severe, with psychotic features F31.64 and Generalized anxiety disorder F41.1 [facility] [place] [address] [place] [id number] [address] [place] [phone] Jul, Bipolar disorder, curr episo de mixed, severe, with psychotic features F31.64 and Generalized anxiety disorder F41.1 [facility] [place] [address] [facility] [id number] [address] [place] [phone] Jul, [facility] [place] [address] [facility] [id number] [address] [place] [address] Jul, Bipolar disorder, curr episo de mixed, severe, with psychotic features F31.64 [facility] [place] [address] [facility] [id number] [address] [place] [phone] Jul, Bipolar disorder, curr episo de mixed, severe, with psychotic features F31.64 and Generalized anxiety disorder F41.1 [facility] [place] [address] [id number] [address] [place] [phone] 11 Jul, 2016 Bipolar disorder, curr episo de mixed, severe, with psychotic features F31.64 [facility] [place] [address] [id number] [address] [place] [phone] 02 Jul, 2016 Bipolar II disorder F31.81 a nd Generalized anxiety disorder F41.1 [facility] [place] [address] [id number] [address] [place] [phone] 15 Feb, 2016 Dental examination Z01.20 [place] [address] [id number] [address] [place] [phone] Dec, Dental examination Z01.20 [facility] [address] [id number] [address] [place] [id number] Nov, Dental examination Z01.20 [facility] [address] [id number] [address] [place] [id number] Sep, Dental examination Z01.20 [place] [address] [id number] [address] [place] [phone] Jul, Hypogonadism in male E29.1 [place] [address] [facility] [id number] [address] [place] [phone] Jun, Diabetes mellitus without me ntion of complication, type II or unspecified type, not stated as uncontrolled 250.00 and Testicular pain, right 608.9 [facility] [place] [address] [id number] [address] [place] [phone] May, Hypogonadism in male 257.2 [place] [address] [facility] [id number] [address] [place] [phone] Apr, [place] [address] [id number] [address] [place] [phone] Mar, Hypogonadism in male 257.2 [place] [address] [facility] [id number] [address] [place] [phone] Mar, [facility] [place] [address] [id number] [address] [place] [phone] Mar, [facility] [place] [address] [id number] [address] [place] [phone] Mar, Hypogonadism in male 257.2 [facility] [place] [address] [id number] [address] [place] [phone] Feb, Hypogonadism male 257.2 [facility] [place] [address] [id number] [address] [place] [phone] 17 Feb, 2015 Diabetes mellitus without me ntion of complication, type II or unspecified type, not stated as uncontrolled 250.00 ; Epididymitis 604.90 and Hypogonadism in male 257.2 [facility] [place] [address] [facility] [id number] [address] [place] [phone] Feb, [facility] [place] [address] [id number] [address] [place] [phone] Feb, [facility] [place] [address] [facility] [id number] [address] [place] [phone] Feb, Testicular pain, right 608.9 ; Diabetes mellitus without mention of complication, type II or unspecified type, not stated as uncontrolled 250.00 and Family history of heart disease V17.49 [facility] [place] [address] [id number] [address] [place] [phone] Feb, Testicular pain, right 608.9 and Family history of heart disease V17.49 [facility] [place] [address] [id number] [address] [place] [phone] Feb, [facility] [place] [address] [facility] [id number] [address] [place] [phone] Dec, [facility] [place] [address] [facility] [id number] [address] [place] [phone] Dec, [facility] [place] [address] [facility] [id number] [address] [place] [phone] Oct, [facility] [address] [id number] [address] [place] [address], [place] [phone] 16 Oct, 2014 [facility] [address] [id number] [address] [place] [address], [place] [address] 16 Sep, 2014 [facility] [address] [id number] [address] [place] [address], [place] [address] 16 Sep, 2014 [facility] [address] [id number] [address] [place] [address], [place] [phone] 16 Sep, 2014 [facility] [address] [id number] [address] [place] [address], [place] [address] 16 Sep, 2014 [facility] [address] [id number] [address] [place] [address], [place] [address] 15 Sep, 2014 [facility] [address] [id number] [address] [place] [address], [place] [id number] 15 Sep, 2014 [facility] [address] [id number] [address] [place] [address], [place] [address] 14 Sep, 2014 [facility] [address] [id number] [address] [place] [address], [place] [address] Sep, [facility] [address] [id number] [address] [place] [address], [place] [id number] Sep, [facility] [address] [id number] [address] [place] [address], [place] [address] Sep, [facility] [address] [id number] [address] [place] [address], [place] [phone] Feb, [facility] [address] [id number] [address] [place] [address], [place] [address] Feb, [facility] [address] [id number] [address] [place] [address], [place] [phone] January, [facility] [address] [id number] [address] [place] [address], [place] [phone] January, [facility] [address] [id number] [address] [place] [address], [place] [address] January, [facility] [address] [id number] [address] [place] [address], [place] [address] January, [facility] [address] [id number] [address] [place] [address], [place] [address] January, [facility] [address] [id number] [address] [place] [address], [place] [address] January, [facility] [address] [id number] [address] [place] [address], [place] [address] Nov, [facility] [address] [id number] [address] [place] [address], [place] [address] Nov, [facility] [address] [id number] [address] [place] [address], [place] [address] Nov, [facility] [address] [id number] [address] [place] [address], [place] [address] Nov, [facility] [address] [id number] [address] [place] [address], [place] [address] Oct, [facility] [address] [id number] [address] [place] [address], [place] [address] Oct, [facility] [address] [id number] [address] [place] [address], [place] [address] 18 Oct, 2013 [facility] [address] [id number] [address] [place] [address], [place] [address] 18 Oct, 2013 [facility] [address] [id number] [address] [place] [address], [place] [address] 17 Oct, 2013 [facility] [address] [id number] [address] [place] [address], [place] [address] 17 Oct, 2013 [facility] [address] [id number] [address] [place] [address], [place] [address] 14 Oct, 2013 [facility] [address] [id number] [address] [place] [address], [place] [address] Oct, [facility] [place] [address] [facility] [id number] [address] [place] [address] Oct, IMMUNIZATIONS No Known Immunizations SOCIAL HISTORY Never Assessed REASON FOR VISIT PLAN OF CARE VITAL SIGNS Height 70 in 2014-09-21 Weight 288 lbs 2014-09-21 Temperature 98 degrees Fahrenheit 2014-09-21 Heart Rate 70 bpm 2014-09-21 Respiratory Rate 24 2014-09-21 Blood pressure systolic 138 mmHg 2014-09-21 Blood pressure diastolic 72 mmHg 2014-09-21 MEDICATIONS Unknown Medications RESULTS No Results PROCEDURES Procedure Date Ordered Result Body Site GLYCATED HEMOGLOBIN TEST Sep 21, 2014 INSTRUCTIONS MEDICATIONS ADMINISTERED No Known Medications [...]
--- OUTSIDE RECORDS SUMMARY | 2020-01-26 19:43 | XMS REPORT ---
Author Author Deon MUNSON Organization [facility] Address [address] [place] [address] Care Team Providers Care School Age Program Associate Name Role Phone ED MUNSON Unavailable PROBLEMS Type Condition ICD9-CM Code SQD52-PB Code Onset Dates Condition S tatus SNOMED Code Problem Bipolar disorder, curr episode mixed, severe, wi th psychotic features F31.64 Active 127734540 Problem Generalized anxiety disorder F41.1 A ctive 86990611 Problem Low back pain M54.5 Active 897904 007 Problem Observed sleep apnea G47.30 Active 98669469 Problem Hypogonadism in male E29.1 Active 42613226 Problem Morbid obesity due to excess calories E66.01 Active 691897974 Problem Mood disorder F39 Active 884232 05 Problem Anxiety F41.9 Active 22979387 ALLERGIES No Information ENCOUNTERS Encounter Location Date Diagnosis [facility] [address] [facility] [id number] [address] [place] [address] Apr, [facility] [address] [facility] [id number] [address] [place] [address] Mar, [facility] [address] [facility] [id number] [address] [place] [address] Mar, Bipolar disorder, curr episo de mixed, severe, with psychotic features F31.64 ; BMI 40.0-44.9, adult Z68.41 and Morbid obesity E66.01 [facility] [address] [facility] [id number] [address] [place] [address] January, Strain of lumbar region, ini tial encounter S39.012A [facility] [address] [facility] [id number] [address] [place] [address] Dec, Snoring R06.83 [facility] [address] [facility] [id number] [address] [place] [address] Dec, Bipolar disorder, curr episo de mixed, severe, with psychotic features F31.64 ; BMI 40.0-44.9, adult Z68.41 and Morbid obesity E66.[id number] [place] [address] Nov, Snoring R06.83 and Observed sleep apnea G47.[address] [address] Oct, Bipolar disorder, curr episo de mixed, severe, with psychotic features F31.64 and BMI 40.0-44.9, adult Z68.41 [place] [id number] [address] [place] [address] May, Low back pain M54.5 and Cerv icalgia M54.[address] [address] Apr, Low back pain M54.5 ; Bipola r disorder, curr episode mixed, severe, with psychotic features F31.64 ; Hypogonadism in male E29.1 ; Morbid obesity due to excess calories E66.01 ; Mood disorder F39 and Cervicalgia M54.2 [place] [id number] [address] [place] [address] Apr, Bipolar disorder, curr episo de mixed, severe, with psychotic features F31.64 and BMI 40.0-44.9, adult Z68.41 [facility] [address] [place], [place] [id number] [address] [place] [address] Apr, Hand, foot and mouth disease B08.4 and Ingrown toenail of right foot with infection L60.0 [address] [place] [address] January, Bipolar disorder, curr episo de mixed, severe, with psychotic features F31.64 and BMI 40.0-44.9, adult Z68.41 [place] [id number] [address] [place] [address] Dec, Bipolar disorder, curr episo de mixed, severe, with psychotic features F31.64 [facility] [address] [facility] [id number] [address] [place] [address] Aug, Bipolar disorder, curr episo de mixed, severe, with psychotic features F31.64 [place] [address] [place] [id number] [address] [place] [address] Apr, Bipolar disorder, curr episo de mixed, severe, with psychotic features F31.64 [place] [address] [place] [id number] [address] [place] [address] Mar, Bipolar disorder, curr episo de mixed, severe, with psychotic features F31.64 [place] [address] [place] [id number] [address] [place] [address] Mar, Bipolar disorder, curr episo de mixed, severe, with psychotic features F31.64 [place] [address] [place] [id number] [address] [place] [address] Nov, Bipolar disorder, curr episo de mixed, severe, with psychotic features F31.64 [place] [address] [place] [id number] [address] [place] [address] Oct, Bipolar disorder, curr episo de mixed, severe, with psychotic features F31.64 [place] [address] [place] [id number] [address] [place] [address] Oct, Bipolar disorder, curr episo de mixed, severe, with psychotic features F31.64 [place] [address] [place] [id number] [address] [place] [address] Sep, [place] [address] [place] [id number] [address] [place] [address] Sep, Bipolar disorder, curr episo de mixed, severe, with psychotic features F31.64 [place] [address] [place] [id number] [address] [place] [address] Sep, Bipolar disorder, curr episo de mixed, severe, with psychotic features F31.64 [facility] [address] [facility] [id number] [address] [place] [address] Sep, Bipolar disorder, curr episo de mixed, severe, with psychotic features F31.64 and Generalized anxiety disorder F41.1 [facility] [address] [facility] [id number] [address] [place] [address] Jul, Bipolar disorder, curr episo de mixed, severe, with psychotic features F31.64 and Generalized anxiety disorder F41.1 [facility] [address] [facility] [id number] [address] [place] [address] Jul, [facility] [address] [facility] [id number] [address] [place] [address] Jul, Bipolar disorder, curr episo de mixed, severe, with psychotic features F31.64 [facility] [address] [facility] [id number] [address] [place] [address] Jul, Bipolar disorder, curr episo de mixed, severe, with psychotic features F31.64 and Generalized anxiety disorder F41.1 [facility] [address] [facility] [id number] [address] [place] [address] Jul, Bipolar disorder, curr episo de mixed, severe, with psychotic features F31.64 [facility] [address] [facility] [id number] [address] [place] [address] Jul, Bipolar II disorder F31.81 a nd Generalized anxiety disorder F41.1 [facility] [address] [facility] [id number] [address] [place] [address] Feb, Dental examination Z01.20 [facility] [address] [facility] [id number] [address] [place] [address] Dec, Dental examination Z01.20 [facility] [address] [id number] [address] [place] [id number] Nov, Dental examination Z01.20 [facility] [address] [id number] [address] [place] [id number] Sep, Dental examination Z01.20 [facility] [address] [id number] [address] [place] [address] Jul, Hypogonadism in male E29.1 [facility] [address] [id number] [address] [place] [address] Jun, Diabetes mellitus without me ntion of complication, type II or unspecified type, not stated as uncontrolled 250.00 and Testicular pain, right 608.9 [facility] [address] [id number] [address] [place] [address] May, Hypogonadism in male 257.2 [facility] [address] [id number] [address] [place] [address] Apr, [facility] [address] [id number] [address] [place] [address] Mar, Hypogonadism in male 257.2 [facility] [address] [id number] [address] [place] [address] Mar, [facility] [address] [id number] [address] [place] [address] Mar, [facility] [address] [id number] [address] [place] [address] Mar, Hypogonadism in male 257.2 [facility] [address] [id number] [address] [place] [address] Feb, Hypogonadism male 257.2 [facility] [address] [id number] [address] [place] [address] Feb, Diabetes mellitus without me ntion of complication, type II or unspecified type, not stated as uncontrolled 250.00 ; Epididymitis 604.90 and Hypogonadism in male 257.2 [facility] [address] [id number] [address] [place] [address] Feb, [facility] [address] [id number] [address] [place] [address] 12 Feb, 2015 [facility] [address] [id number] [address] [place] [address] 08 Feb, 2015 Testicular pain, right 608.9 ; Diabetes mellitus without mention of complication, type II or unspecified type, not stated as uncontrolled 250.00 and Family history of heart disease V17.49 [facility] [address] [id number] [address] [place] [address] 03 Feb, 2015 Testicular pain, right 608.9 and Family history of heart disease V17.49 [facility] [address] [id number] [address] [place] [address] Feb, [facility] [address] [id number] [address] [place] [phone] 14 Dec, 2014 [facility] [address] [id number] [address] [place] [address] Dec, [facility] [address] [id number] [address] [place] [address] 16 Oct, 2014 [facility] [address] [id number] [address] [place] [address] Oct, [facility] [address] [id number] [address] [place] [phone] Sep, [facility] [address] [id number] [address] [place] [phone] Sep, [facility] [address] [id number] [address] [place] [phone] Sep, [facility] [address] [id number] [address] [place] [phone] Sep, [facility] [address] [id number] [address] [place] [phone] Sep, [facility] [address] [id number] [address] [place] [address] Sep, [facility] [address] [id number] [address] [place] [address], [place] [address] 14 Sep, 2014 [facility] [address] [id number] [address] [place] [address], [place] [address] 14 Sep, 2014 [facility] [address] [id number] [address] [place] [address], [place] [address] 13 Sep, 2014 [facility] [address] [id number] [address] [place] [address], [place] [address] Sep, [facility] [address] [id number] [address] [place] [address], [place] [address] Feb, [facility] [address] [id number] [address] [place] [address], [place] [address] Feb, [facility] [address] [id number] [address] [place] [address], [place] [address] January, [facility] [address] [id number] [address] [place] [address], [place] [address] January, [facility] [address] [id number] [address] [place] [address], [place] [address] January, [facility] [address] [id number] [address] [place] [address], [place] [address] January, [facility] [address] [id number] [address] [place] [address], [place] [address] January, [facility] [address] [id number] [address] [place] [address], [place] [address] January, [facility] [address] [id number] [address] [place] [address], [place] [address] Nov, [facility] [address] [id number] [address] [place] [address], [place] [address] Nov, [facility] [address] [id number] [address] [place] [address], [place] [address] Nov, [facility] [address] [id number] [address] [place] [address] [address] Nov, [facility] [address] [id number] [address] [place] [phone] Oct, [facility] [address] [id number] [address] [place] [address] Oct, [facility] [address] [facility] [id number] [address] [place] [phone] Oct, [facility] [address] [id number] [address] [place] [address] Oct, [facility] [address] [id number] [address] [place] [address] Oct, [facility] [address] [facility] [id number] [address] [place] [phone] Oct, [facility] [address] [facility] [id number] [address] [place] [address] Oct, [facility] [address] [id number] [address] [place] [address] Oct, [facility] [address] [facility] [id number] [address] [place] [address] Oct, IMMUNIZATIONS No Known Immunizations SOCIAL HISTORY [...]
--- OUTSIDE RECORDS SUMMARY | 2020-01-26 19:43 | XMS REPORT ---
Author Author Deon CORONEL Organization [facility], [place] Address [address] [place] [address] Care Team Providers Care Floor Renovator Name Role Phone LUCIANO CORONEL Unavailable PROBLEMS Type Condition ICD9-CM Code HOO07-YQ Code Onset Dates Condition S tatus SNOMED Code Problem Bipolar disorder, curr episode mixed, severe, wi th psychotic features F31.64 Active 224080224 Problem Generalized anxiety disorder F41.1 A ctive 89270608 Problem Hypogonadism in male E29.1 Active 76826387 Problem Observed sleep apnea G47.30 Active 20269081 Problem Acute left-sided low back pain with left-sided sciatica M54.42 Active 087171460 Problem Morbid obesity due to excess calories E66.01 Active 542440611 Problem Mood disorder F39 Active 743604 05 Problem Anxiety F41.9 Active 94669214 Problem Low back pain M54.5 Active 923367 [id number] ALLERGIES No Information ENCOUNTERS Encounter Location Date Diagnosis [facility] [place] [address] [facility] [id number] [address] [place] [id number] Apr, [facility] [place] [address] [facility] [id number] [address] [place] [phone] Apr, [facility] [place] [address] [facility] [id number] [address] [place] [phone] Mar, Bipolar disorder, curr episo de mixed, severe, with psychotic features F31.64 [facility] [address] [facility] [id number] [address] [place] [phone] Mar, Acute left-sided low back pa in with left-sided sciatica M54.42 [facility] [place] [address] [facility] [id number] [address] [place] [phone] Mar, [facility] [place] [address] [place] [id number] [address] [place] [phone] Mar, Bipolar disorder, curr episo de mixed, severe, with psychotic features F31.64 ; BMI 40.0-44.9, adult Z68.41 and Morbid obesity E66.01 [facility] [address] [place] [id number] [address] [place] [id number] January, Strain of lumbar region, ini tial encounter S39.012A [place] [address] [address] Dec, Snoring R06.83 [place] [address] [address] Dec, Bipolar disorder, curr episo de mixed, severe, with psychotic features F31.64 ; BMI 40.0-44.9, adult Z68.41 and Morbid obesity E66.01 [place] [address] [address] Nov, Snoring R06.83 and Observed sleep apnea G47.30 [place] [address] [address] Oct, Bipolar disorder, curr episo de mixed, severe, with psychotic features F31.64 and BMI 40.0-44.9, adult Z68.41 [place] [address] [address] May, Low back pain M54.5 and Cerv icalgia M54.2 [place] [address] [address] Apr, Low back pain M54.5 ; Bipola r disorder, curr episode mixed, severe, with psychotic features F31.64 ; Hypogonadism in male E29.1 ; Morbid obesity due to excess calories E66.01 ; Mood disorder F39 and Cervicalgia M54.2 [place] [address] [address] Apr, Bipolar disorder, curr episo de mixed, severe, with psychotic features F31.64 and BMI 40.0-44.9, adult Z68.41 [facility] [address] [place] [id number] [place] [phone] Apr, Hand, foot and mouth disease B08.4 and Ingrown toenail of right foot with infection L60.0 [facility] [place] [address] [place] [id number] [address] [place] [phone] January, Bipolar disorder, curr episo de mixed, severe, with psychotic features F31.64 and BMI 40.0-44.9, adult Z68.41 [place] [address] [id number] Dec, Bipolar disorder, curr episo de mixed, severe, with psychotic features F31.64 [place] [address] [place] [id number] [address] [place] [id number] Aug, Bipolar disorder, curr episo de mixed, severe, with psychotic features F31.64 [place] [address] [place] [id number] [address] [place] [phone] Apr, Bipolar disorder, curr episo de mixed, severe, with psychotic features F31.64 [facility] [place] [address] [place] [id number] [address] [place] [phone] Mar, Bipolar disorder, curr episo de mixed, severe, with psychotic features F31.64 [place] [address] [place] [id number] [address] [place] [phone] Mar, Bipolar disorder, curr episo de mixed, severe, with psychotic features F31.64 [place] [address] [place] [id number] [address] [place] [phone] Nov, Bipolar disorder, curr episo de mixed, severe, with psychotic features F31.64 [facility] [place] [address] [place] [id number] [address] [place] [phone] Oct, Bipolar disorder, curr episo de mixed, severe, with psychotic features F31.64 [facility] [place] [address] [facility] [id number] [address] [place] [phone] Oct, Bipolar disorder, curr episo de mixed, severe, with psychotic features F31.64 [facility] [place] [address] [facility] [id number] [address] [place] [phone] Sep, [facility] [place] [address] [facility] [id number] [address] [place] [id number] Sep, Bipolar disorder, curr episo de mixed, severe, with psychotic features F31.64 [facility] [place] [address] [facility] [id number] [address] [place] [phone] Sep, Bipolar disorder, curr episo de mixed, severe, with psychotic features F31.64 [place] [address] [facility] [id number] [address] [place] [phone] Sep, Bipolar disorder, curr episo de mixed, severe, with psychotic features F31.64 and Generalized anxiety disorder F41.1 [facility] [place] [address] [facility] [id number] [address] [place] [phone] Jul, Bipolar disorder, curr episo de mixed, severe, with psychotic features F31.64 and Generalized anxiety disorder F41.1 [facility] [place] [address] [facility] [id number] [address] [place] [id number] Jul, [facility] [place] [address] [facility] [id number] [address] [place] [id number] Jul, Bipolar disorder, curr episo de mixed, severe, with psychotic features F31.64 [facility] [place] [address] [facility] [id number] [address] [place] [id number] Jul, Bipolar disorder, curr episo de mixed, severe, with psychotic features F31.64 and Generalized anxiety disorder F41.1 [facility] [place] [address] [facility] [id number] [address] [place] [phone] Jul, Bipolar disorder, curr episo de mixed, severe, with psychotic features F31.64 [place] [address] [id number] [address] [place] [phone] Jul, Bipolar II disorder F31.81 a nd Generalized anxiety disorder F41.1 [facility] [place] [address] [id number] [address] [place] [id number] Feb, Dental examination Z01.20 [facility] [place] [address] [id number] [address] [place] [phone] Dec, Dental examination Z01.20 [facility] [address] [id number] [address] [place] [address] [id number] Nov, Dental examination Z01.20 [facility] [address] [id number] [address] [place] [id number] Sep, Dental examination Z01.20 [facility] [place] [address] [id number] [address] [place] [phone] Jul, Hypogonadism in male E29.1 [facility] [place] [address] [facility] [id number] [address] [place] [phone] Jun, Diabetes mellitus without me ntion of complication, type II or unspecified type, not stated as uncontrolled 250.00 and Testicular pain, right 608.9 [facility] [place] [address] [id number] [address] [place] [id number] May, Hypogonadism in male 257.2 [facility] [place] [address] [facility] [id number] [address] [place] [phone] Apr, [facility] [place] [address] [id number] [address] [place] [id number] Mar, Hypogonadism in male 257.2 [facility] [place] [address] [id number] [address] [place] [id number] Mar, [facility] [place] [address] [facility] [id number] [address] [place] [phone] Mar, [facility] [place] [address] [facility] [id number] [address] [place] [phone] Mar, Hypogonadism in male 257.2 [facility] [place] [address] [id number] [address] [place] [id number] 17 Feb, 2015 Hypogonadism male 257.2 [facility] [place] [address] [id number] [address] [place] [id number] 17 Feb, 2015 Diabetes mellitus without me ntion of complication, type II or unspecified type, not stated as uncontrolled 250.00 ; Epididymitis 604.90 and Hypogonadism in male 257.2 [facility] [place] [address] [id number] [address] [place] [id number] 15 Feb, 2015 [facility] [place] [address] [id number] [address] [place] [phone] Feb, [facility] [place] [address] [facility] [id number] [address] [place] [id number] 08 Feb, 2015 Testicular pain, right 608.9 ; Diabetes mellitus without mention of complication, type II or unspecified type, not stated as uncontrolled 250.00 and Family history of heart disease V17.49 [facility] [place] [address] [id number] [address] [place] [phone] 03 Feb, 2015 Testicular pain, right 608.9 and Family history of heart disease V17.49 [facility] [place] [address] [facility] [id number] [address] [place] [phone] 02 Feb, 2015 [facility] [place] [address] [facility] [id number] [address] [place] [id number] Dec, [facility] [place] [address] [id number] [address] [place] [phone] Dec, [facility] [place] [address] [facility] [id number] [address] [place] [phone] Oct, [facility] [place] [address] [facility] [id number] [address] [place] [phone] Oct, [facility] [place] [address] [facility] [id number] [address] [place] [phone] Sep, [facility] [address] [id number] [address] [place] [address], [place] [address] 16 Sep, 2014 [facility] [address] [id number] [address] [place] [address], [place] [address] Sep, [facility] [address] [id number] [address] [place] [address], [place] [phone] 16 Sep, 2014 [facility] [address] [id number] [address] [place] [address], [place] [address] Sep, [facility] [address] [id number] [address] [place] [address], [place] [address] 15 Sep, 2014 [facility] [address] [id number] [address] [place] [address], [place] [address] Sep, [facility] [address] [id number] [address] [place] [address], [place] [address] Sep, [facility] [address] [id number] [address] [place] [address], [place] [address] Sep, [facility] [address] [id number] [address] [place] [address], [place] [address] Sep, [facility] [address] [id number] [address] [place] [address], [place] [address] Feb, [facility] [address] [id number] [address] [place] [address], [place] [address] Feb, [facility] [address] [id number] [address] [place] [address], [place] [address] January, [facility] [address] [id number] [address] [place] [address], [place] [address] January, [facility] [address] [id number] [address] [place] [address], [place] [address] January, [facility] [address] [id number] [address] [place] [address], [place] [address] January, [facility] [address] [id number] [address] [place] [phone] January, [facility] [place] [address] [id number] [address] [place] [id number] January, [facility] [place] [address] [id number] [address] [place] [phone] Nov, [facility] [place] [address] [id number] [address] [place] [phone] Nov, [facility] [place] [address] [id number] [address] [place] [phone] Nov, [facility] [place] [address] [id number] [address] [place] [phone] Nov, [facility] [place] [address] [id number] [address] [place] [phone] Oct, [facility] [place] [address] [id number] [address] [place] [phone] Oct, [facility] [place] [address] [id number] [address] [place] [phone] Oct, [facility] [place] [address] [id number] [address] [place] [phone] Oct, [facility] [place] [address] [id number] [address] [place] [phone] Oct, [facility] [place] [address] [id number] [address] [place] [phone] Oct, [facility] [place] [address] [id number] [address] [place] [phone] Oct, [facility] [place] [address] [id number] [address] [place] [phone] Oct, [facility] [place] [address] [id number] [address] [place] [id number] 13 Oct, 2013 IMMUNIZATIONS No Known Immunizations [...]
--- OUTSIDE RECORDS SUMMARY | 2020-01-26 19:43 | XMS REPORT ---
Author Author Deon Avila Doctor Organization [facility] Address Unknown Phone Unavailable Care Team Providers Care Revenue Enforcement Collection Agent Name Role Phone Migration, Doctor Unavailable Unavailable PROBLEMS Type Condition ICD9-CM Code [id number] Code Onset Dates Condition S tatus SNOMED Code Problem Hypogonadism in male E29.1 Active 75767393 Problem Morbid obesity due to excess calories E66.01 Active 735233445 Problem Mood disorder F39 Active 332352 05 Problem Other chronic pain G89.29 Active 8 5063492 Problem Generalized anxiety disorder F41.1 A ctive 25279527 Problem Lumbago with sciatica, left side M54.42 Active 089487899 Problem Bipolar disorder, curr episode mixed, severe, wi th psychotic features F31.64 Active 966894745 Problem Anxiety F41.9 Active 37856983 Problem Low back pain M54.5 Active 747423 007 Problem Observed sleep apnea G47.30 Active 67997962 Problem Acute left-sided low back pain with left-sided sciatica M54.42 Active 156374244 ALLERGIES No Information ENCOUNTERS Encounter Location Date Diagnosis [place] [address] [address] Jul, Lumbago with sciatica, left side M54.42 and Other chronic pain G89.29 [place] [address] [address] Jun, [place] [address] [address] 07 Jun, 2019 Bipolar disorder, curr episode mixed, se [place], with psychotic features F31.64 [place] [address] [address] May, Low back pain M54.5 ; Other chronic pain G89.29 ; Morbid obesity due to excess calories E66.01 and Family history of diabetes mellitus Z83.3 [place] [address] [address] Apr, BMI 40.0-44.9, adult Z68.41 ; Bipolar di sorder, curr episode mixed, severe, with psychotic features F31.64 and Morbid obesity E66.01 [place] [address] [address] Mar, Bipolar disorder, curr episode mixed, se [place], with psychotic features F31.64 [facility] [address] [place] [id number] [place] [address] Mar, Acute left-sided low back pa in with left-sided sciatica M54.42 [place] [address] [address] Mar, [place] [address] [address] Mar, Bipolar disorder, curr episode mixed, se [place], with psychotic features F31.64 ; BMI 40.0-44.9, adult Z68.41 and Morbid obesity E66.01 [facility] [address] [place] [id number] [address] [place] [address] January, Strain of lumbar region, ini tial encounter S39.012A [place] [address] [address] Dec, Snoring R06.83 [place] [address] [address] Dec, Bipolar disorder, curr episode mixed, se [place], with psychotic features F31.64 ; BMI 40.0-44.9, adult Z68.41 and Morbid obesity E66.01 [place] [address] [address] Nov, Snoring R06.83 and Observed sleep apnea G47.30 [place] [address] [address] Oct, Bipolar disorder, curr episode mixed, se [place], with psychotic features F31.64 and BMI 40.0-44.9, adult Z68.41 [facility] [address] [address] May, Low back pain M54.5 and Cervicalgia M54. 2 [place] [address] [address] Apr, Low back pain M54.5 ; Bipolar disorder, curr episode mixed, severe, with psychotic features F31.64 ; Hypogonadism in male E29.1 ; Morbid obesity due to excess calories E66.01 ; Mood disorder F39 and Cervicalgia M54.2 [place] [address] [address] Apr, Bipolar disorder, curr episode mixed, se [place], with psychotic features F31.64 and BMI 40.0-44.9, adult Z68.41 [facility] [address] [facility] [id number] [place] [address] Apr, Hand, foot and mouth disease B08.4 and Ingrown toenail of right foot with infection L60.0 [place] [address] [address] January, Bipolar disorder, curr episode mixed, se [place], with psychotic features F31.64 and BMI 40.0-44.9, adult Z68.41 [place] [address] [address] Dec, Bipolar disorder, curr episode mixed, se [place], with psychotic features F31.64 [place] [address] [address] Aug, Bipolar disorder, curr episode mixed, se [place], with psychotic features F31.64 [place] [address] [address] Apr, Bipolar disorder, curr episode mixed, se kol[place], with psychotic features F31.64 [place] [address] [address] Mar, Bipolar disorder, curr episode mixed, se kol[place], with psychotic features F31.64 [facility] [address] [place] [address] Mar, Bipolar disorder, curr episode mixed, se [place], with psychotic features F31.64 [facility] [address] [place] [address] Nov, Bipolar disorder, curr episode mixed, se kol[place], with psychotic features F31.64 [facility] [address] [address] Oct, Bipolar disorder, curr episode mixed, se kol[place], with psychotic features F31.64 [facility] [address] [address] Oct, Bipolar disorder, curr episode mixed, se kol[place], with psychotic features F31.64 [facility] [address] [place] [address] Sep, [facility] [address] [address] Sep, Bipolar disorder, curr episode mixed, se kol[place], with psychotic features F31.64 [facility] [address] [address] Sep, Bipolar disorder, curr episode mixed, se kol[place], with psychotic features F31.64 [facility] [address] [place] [id number] Sep, Bipolar disorder, curr episode mixed, se kol[place], with psychotic features F31.64 and Generalized anxiety disorder F41.1 [facility] [address] [place] [address] Jul, Bipolar disorder, curr episode mixed, se kol[place], with psychotic features F31.64 and Generalized anxiety disorder F41.1 [facility] [address] [address] Jul, [facility] [address] [address] Jul, Bipolar disorder, curr episode mixed, se kol[place], with psychotic features F31.64 [place] [address] [address] Jul, Bipolar disorder, curr episode mixed, se [place], with psychotic features F31.64 and Generalized anxiety disorder F41.[address] [address] Jul, Bipolar disorder, curr episode mixed, se kol[place], with psychotic features F31.64 [place] [address] [address] Jul, Bipolar II disorder F31.81 and Generaliz ed anxiety disorder F41.[address] [address] Feb, Dental examination Z01.[address] [address] Dec, Dental examination Z01.20 [facility] [address] [id number] Nov, Dental examination Z01.20 [facility] [address] [id number] Sep, Dental examination Z01.[address] [address] Jul, Hypogonadism in male E29.[address] [address] 07 Jun, 2015 Diabetes mellitus without mention of com plication, type II or unspecified type, not stated as uncontrolled 250.00 and Testicular pain, right 608.[address] [address] May, Hypogonadism in male 257.[address] [address] Apr, [address] [id number] [place] [address] Mar, Hypogonadism in male 257.2 [facility] [address] [address] Mar, [facility] [address] [address] Mar, [facility] [address] [address] Mar, Hypogonadism in male 257.2 [facility] [address] [address] Feb, Hypogonadism male 257.2 [facility] [address] [address] Feb, Diabetes mellitus without mention of com plication, type II or unspecified type, not stated as uncontrolled 250.00 ; Epididymitis 604.90 and Hypogonadism in male 257.2 [facility] [address] [address] Feb, [facility] [address] [address] Feb, [facility] [address] [address] Feb, Testicular pain, right 608.9 ; Diabetes mellitus without mention of complication, type II or unspecified type, not stated as uncontrolled 250.00 and Family history of heart disease V17.49 [facility] [address] [address] Feb, Testicular pain, right 608.9 and Family history of heart disease V17.49 [facility] [address] [address] Feb, [facility] [address] [address] Dec, [facility] [address] [address] Dec, [facility] [place] [facility] [address] [facility] [id number] [place] [address] 16 Oct, 2014 [facility] [place] [facility] [address] [id number] [place] [address] Oct, [facility] [place] [facility] [address] [id number] [place] [address] Sep, [facility] [place] [facility] [address] [id number] [place] [address] Sep, [facility] [place] [facility] [address] [id number] [place] [address] Sep, [facility] [place] [facility] [address] [id number] [place] [address] Sep, [facility] [place] [facility] [address] [id number] [place] [address] Sep, [facility] [place] [facility] [address] [id number] [place] [address] Sep, [facility] [place] [facility] [address] [id number] [place] [address] Sep, [facility] [place] [facility] [address] [id number] [place] [address] Sep, [facility] [place] [facility] [address] [id number] [place] [address] Sep, [facility] [place] [facility] [address] [id number] [place] [address] Sep, [facility] [place] [facility] [address] [id number] [place] [address] Feb, [facility] [place] [facility] [address] [id number] [place] [address] Feb, [facility] [place] [facility] [address] [id number] [place] [address] January, [facility] [place] [facility] [address] [id number] [place] [address] January, [facility] [place] [facility] [address] [id number] [place] [address] January, [facility] [address] [id number] [place] [address] January, [facility] [address] [id number] [place] [address] January, [facility] [address] [id number] [place] [address] January, [facility] [address] [id number] [place] [address] Nov, [facility] [address] [id number] [place] [address] Nov, [facility] [address] [id number] [place] [address] Nov, [facility] [address] [id number] [place] [address] Nov, [facility] [address] [id number] [place] [address] Oct, [facility] [address] [id number] [place] [address] Oct, [facility] [address] [id number] [place] [address] Oct, [facility] [address] [id number] [place] [address] Oct, [facility] [address] [id number] [place] [address] Oct, [facility] [address] [id number] [place] [address] Oct, [facility] [address] [place] [id number] [place] [address] 14 Oct, 2013 [facility] [address] [id number] [place] [address] 14 Oct, 2013 [facility] [address] [id number] [place] [address] 13 Oct, 2013 IMMUNIZATIONS No Known Immunizations [...]
--- OUTSIDE RECORDS SUMMARY | 2020-01-26 19:43 | XMS REPORT ---
Author Author Deon CORONEL Organization [facility] Address [address] [place] [address] Care Team Providers Care Talent Associate Name Role Phone LUCIANO CORONEL Unavailable PROBLEMS Type Condition ICD9-CM Code [id number] Code Onset Dates Condition S tatus SNOMED Code Problem Bipolar disorder, curr episode mixed, severe, wi th psychotic features F31.64 Active 179130668 Problem Generalized anxiety disorder F41.1 A ctive 02451023 Problem Low back pain M54.5 Active 440967 007 Problem Observed sleep apnea G47.30 Active 81233373 Problem Hypogonadism in male E29.1 Active 30593402 Problem Morbid obesity due to excess calories E66.01 Active 881009367 Problem Mood disorder F39 Active 314638 05 Problem Anxiety F41.9 Active 99095591 ALLERGIES No Information ENCOUNTERS Encounter Location Date Diagnosis [facility] [address] [id number] [address] [place] [id number] Mar, [facility] [address] [facility] [id number] [address] [place] [address] January, Strain of lumbar region, ini tial encounter S39.012A [facility] [address] [id number] [address] [place] [address] Dec, Snoring R06.83 [facility] [address] [id number] [address] [place] [address] Dec, Bipolar disorder, curr episo de mixed, severe, with psychotic features F31.64 ; BMI 40.0-44.9, adult Z68.41 and Morbid obesity E66.01 [facility] [address] [facility] [id number] [address] [place] [address] Nov, Snoring R06.83 and Observed sleep apnea G47.30 [facility] [address] [id number] [address] [place] [phone] 15 Oct, 2018 Bipolar disorder, curr episo de mixed, severe, with psychotic features F31.64 and BMI 40.0-44.9, adult Z68.41 [facility] [address] [id number] [address] [place] [address] May, Low back pain M54.5 and Cerv icalgia M54.2 [address] [id number] [place] [address] Apr, Low back pain M54.5 ; Bipola r disorder, curr episode mixed, severe, with psychotic features F31.64 ; Hypogonadism in male E29.1 ; Morbid obesity due to excess calories E66.01 ; Mood disorder F39 and Cervicalgia M54.2 [address] [address] Apr, Bipolar disorder, curr episo de mixed, severe, with psychotic features F31.64 and BMI 40.0-44.9, adult Z68.41 [facility] [address] [address] Apr, Hand, foot and mouth disease B08.4 and Ingrown toenail of right foot with infection L60.0 [place] [id number] [place] [address] January, Bipolar disorder, curr episo de mixed, severe, with psychotic features F31.64 and BMI 40.0-44.9, adult Z68.41 [place] [address] [id number] [address] [place] [address] Dec, Bipolar disorder, curr episo de mixed, severe, with psychotic features F31.64 [place] [address] [id number] [address] [place] [id number] 07 Aug, 2017 Bipolar disorder, curr episo de mixed, severe, with psychotic features F31.64 [place] [address] [facility] [id number] [address] [place] [phone] Apr, Bipolar disorder, curr episo de mixed, severe, with psychotic features F31.64 [facility] [address] [facility] [id number] [address] [place] [phone] Mar, Bipolar disorder, curr episo de mixed, severe, with psychotic features F31.64 [facility] [address] [id number] [address] [place] [phone] Mar, Bipolar disorder, curr episo de mixed, severe, with psychotic features F31.64 [place] [address] [facility] [id number] [address] [place] [address] Nov, Bipolar disorder, curr episo de mixed, severe, with psychotic features F31.64 [place] [address] [id number] [address] [place] [address] Oct, Bipolar disorder, curr episo de mixed, severe, with psychotic features F31.64 [place] [address] [facility] [id number] [address] [place] [phone] Oct, Bipolar disorder, curr episo de mixed, severe, with psychotic features F31.64 [place] [address] [id number] [address] [place] [address] Sep, [facility] [address] [id number] [address] [place] [address] Sep, Bipolar disorder, curr episo de mixed, severe, with psychotic features F31.64 [facility] [address] [facility] [id number] [address] [place] [address] Sep, Bipolar disorder, curr episo de mixed, severe, with psychotic features F31.64 [facility] [address] [facility] [id number] [address] [place] [address] Sep, Bipolar disorder, curr episo de mixed, severe, with psychotic features F31.64 and Generalized anxiety disorder F41.1 [place] [address] [id number] [address] [place] [address] Jul, Bipolar disorder, curr episo de mixed, severe, with psychotic features F31.64 and Generalized anxiety disorder F41.1 [facility] [address] [id number] [address] [place] [address] Jul, [facility] [address] [facility] [id number] [address] [place] [address] Jul, Bipolar disorder, curr episo de mixed, severe, with psychotic features F31.64 [facility] [address] [id number] [address] [place] [address] Jul, Bipolar disorder, curr episo de mixed, severe, with psychotic features F31.64 and Generalized anxiety disorder F41.1 [facility] [address] [id number] [address] [place] [address] Jul, Bipolar disorder, curr episo de mixed, severe, with psychotic features F31.64 [facility] [address] [facility] [id number] [address] [place] [address] Jul, Bipolar II disorder F31.81 a nd Generalized anxiety disorder F41.1 [facility] [address] [facility] [id number] [address] [place] [address] Feb, Dental examination Z01.20 [facility] [address] [id number] [address] [place] [address] Dec, Dental examination Z01.20 [facility] [address] [id number] [address] [place] [id number] Nov, Dental examination Z01.20 [facility] [address] [id number] [address] [place] [id number] Sep, Dental examination Z01.20 [facility] [address] [facility] [id number] [address] [place] [address] Jul, Hypogonadism in male E29.1 [facility] [address] [facility] [id number] [address] [place] [address] Jun, Diabetes mellitus without me ntion of complication, type II or unspecified type, not stated as uncontrolled 250.00 and Testicular pain, right 608.9 [facility] [address] [id number] [address] [place] [phone] May, Hypogonadism in male 257.2 [facility] [address] [id number] [address] [place] [address] Apr, [facility] [address] [id number] [address] [place] [id number] Mar, Hypogonadism in male 257.2 [facility] [address] [id number] [address] [place] [address] Mar, [facility] [address] [id number] [address] [place] [phone] Mar, [facility] [address] [facility] [id number] [address] [place] [address] Mar, Hypogonadism in male 257.2 [facility] [address] [id number] [address] [place] [phone] Feb, Hypogonadism male 257.2 [facility] [address] [id number] [address] [place] [address] Feb, Diabetes mellitus without me ntion of complication, type II or unspecified type, not stated as uncontrolled 250.00 ; Epididymitis 604.90 and Hypogonadism in male 257.2 [facility] [address] [id number] [address] [place] [phone] Feb, [facility] [address] [id number] [address] [place] [phone] Feb, [facility] [address] [facility] [id number] [address] [place] [phone] 08 Feb, 2015 Testicular pain, right 608.9 ; Diabetes mellitus without mention of complication, type II or unspecified type, not stated as uncontrolled 250.00 and Family history of heart disease V17.49 [facility] [address] [id number] [address] [place] [phone] 03 Feb, 2015 Testicular pain, right 608.9 and Family history of heart disease V17.49 [facility] [address] [id number] [address] [place] [address], [place] [address] 02 Feb, 2015 [facility] [address] [id number] [address] [place] [address], [place] [address] 14 Dec, 2014 [facility] [address] [id number] [address] [place] [phone] 13 Dec, 2014 [facility] [address] [id number] [address] [place] [address], [place] [address] 16 Oct, 2014 [facility] [address] [id number] [address] [place] [address], [place] [address] 16 Oct, 2014 [facility] [address] [id number] [address] [place] [phone] 16 Sep, 2014 [facility] [address] [id number] [address] [place] [phone] 16 Sep, 2014 [facility] [address] [id number] [address] [place] [phone] 16 Sep, 2014 [facility] [address] [id number] [address] [place] [phone] 16 Sep, 2014 [facility] [address] [id number] [address] [place] [phone] 15 Sep, 2014 [facility] [address] [id number] [address] [place] [phone] 15 Sep, 2014 [facility] [address] [id number] [address] [place] [phone] 14 Sep, 2014 [facility] [address] [id number] [address] [place] [phone] 14 Sep, 2014 [facility] [address] [id number] [address] [place] [phone] 13 Sep, 2014 [facility] [address] [id number] [address] [place] [address], [place] [address] Sep, [facility] [address] [id number] [address] [place] [address], [place] [address] Feb, [facility] [address] [id number] [address] [place] [address], [place] [address] Feb, [facility] [address] [id number] [address] [place] [address], [place] [address] January, [facility] [address] [id number] [address] [place] [address], [place] [address] January, [facility] [address] [id number] [address] [place] [address], [place] [address] January, [facility] [address] [id number] [address] [place] [address], [place] [address] January, [facility] [address] [id number] [address] [place] [address], [place] [address] January, [facility] [address] [id number] [address] [place] [address], [place] [address] January, [facility] [address] [id number] [address] [place] [address], [place] [address] Nov, [facility] [address] [id number] [address] [place] [address], [place] [address] Nov, [facility] [address] [id number] [address] [place] [address], [place] [address] Nov, [facility] [address] [id number] [address] [place] [address], [place] [address] Nov, [facility] [address] [id number] [address] [place] [address], [place] [address] Oct, [facility] [address] [id number] [address] [place] [address], [place] [address] Oct, [facility] [address] [id number] [address] [place] [address], [place] [address] Oct, [facility] [address] [facility] [id number] [address] [place] [phone] Oct, [facility] [address] [facility] [id number] [address] [place] [phone] Oct, [facility] [address] [facility] [id number] [address] [place] [phone] Oct, [facility] [address] [facility] [id number] [address] [place] [phone] Oct, [facility] [address] [facility] [id number] [address] [place] [phone] Oct, [facility] [address] [facility] [id number] [address] [place] [address] Oct, IMMUNIZATIONS No Known Immunizations SOCIAL HISTORY [...]
--- OUTSIDE RECORDS SUMMARY | 2020-01-26 19:44 | XMS REPORT ---
Author Author Deon MUNSON Organization [facility] Address [address] [place] [address] Care Team Providers Care Die Mechanic Name Role Phone ED MUNSON Unavailable PROBLEMS Type Condition ICD9-CM Code DAJ49-IP Code Onset Dates Condition S tatus SNOMED Code Problem Bipolar disorder, curr episode mixed, severe, wi th psychotic features F31.64 Active 767208081 Problem Low back pain M54.5 Active 172722 007 Problem Anxiety F41.9 Active 56632168 Problem Hypogonadism in male E29.1 Active 70520031 Problem Generalized anxiety disorder F41.1 A ctive 92980640 Problem Mood disorder F39 Active 614792 05 Problem Morbid obesity due to excess calories E66.01 Active 215272815 ALLERGIES No Known Allergies ENCOUNTERS Encounter Location Date Diagnosis [facility] [id number] [place] [address] Jun, [facility] [id number] [place] [address] May, Low back pain M54.5 and Cerv icalgia M54.2 [facility] [id number] [place] [address] Apr, Low back pain M54.5 ; Bipola r disorder, curr episode mixed, severe, with psychotic features F31.64 ; Hypogonadism in male E29.1 ; Morbid obesity due to excess calories E66.01 ; Mood disorder F39 and Cervicalgia M54.2 [facility] [id number] [place] [address] Apr, Bipolar disorder, curr episo de mixed, severe, with psychotic features F31.64 and BMI 40.0-44.9, adult Z68.41 [facility] [address] [facility] [id number] [address] [place] [address] Apr, Hand, foot and mouth disease B08.4 and Ingrown toenail of right foot with infection L60.0 [place] [address] [address] January, Bipolar disorder, curr episo de mixed, severe, with psychotic features F31.64 and BMI 40.0-44.9, adult Z68.41 [place] [address] [place] [id number] Dec, Bipolar disorder, curr episo de mixed, severe, with psychotic features F31.64 [place] [address] [place] [id number] Aug, Bipolar disorder, curr episo de mixed, severe, with psychotic features F31.[address] [address] Apr, Bipolar disorder, curr episo de mixed, severe, with psychotic features F31.64 [place] [address] [address] Mar, Bipolar disorder, curr episo de mixed, severe, with psychotic features F31.64 [place] [address] [place] [id number] [place] [address] Mar, Bipolar disorder, curr episo de mixed, severe, with psychotic features F31.64 [place] [address] [address] Nov, Bipolar disorder, curr episo de mixed, severe, with psychotic features F31.64 [place] [address] [address] Oct, Bipolar disorder, curr episo de mixed, severe, with psychotic features F31.64 [place] [address] [address] Oct, Bipolar disorder, curr episo de mixed, severe, with psychotic features F31.64 [facility] [address] [facility] [id number] [address] [place] [address] Sep, [facility] [address] [facility] [id number] [address] [place], [place] [address] Sep, Bipolar disorder, curr episo de mixed, severe, with psychotic features F31.64 [facility] [address] [facility] [id number] [address] [place] [address] Sep, Bipolar disorder, curr episo de mixed, severe, with psychotic features F31.64 [facility] [address] [facility] [id number] [address] [place] [address] Sep, Bipolar disorder, curr episo de mixed, severe, with psychotic features F31.64 and Generalized anxiety disorder F41.1 [place] [address] [place] [id number] [place] [address] Jul, Bipolar disorder, curr episo de mixed, severe, with psychotic features F31.64 and Generalized anxiety disorder F41.1 [place] [id number] [facility] [id number] [address] [place] [address] Jul, [place] [address] [facility] [id number] [address] [place] [address] Jul, Bipolar disorder, curr episo de mixed, severe, with psychotic features F31.64 [place] [address] [place] [id number] [place] [address] Jul, Bipolar disorder, curr episo de mixed, severe, with psychotic features F31.64 and Generalized anxiety disorder F41.1 [facility] [address] [facility] [id number] [address] [place] [address] Jul, Bipolar disorder, curr episo de mixed, severe, with psychotic features F31.64 [place] [address] [facility] [id number] [address] [place] [address] 02 Jul, 2016 Bipolar II disorder F31.81 a nd Generalized anxiety disorder F41.1 [facility] [address] [id number] [address] [place] [address] Feb, Dental examination Z01.20 [facility] [address] [id number] [address] [place] [address] Dec, Dental examination Z01.20 [facility] [address] [id number] [address] [place] [id number] Nov, Dental examination Z01.20 [facility] [address] [id number] [address] [place] [id number] Sep, Dental examination Z01.20 [facility] [address] [id number] [address] [place] [address] Jul, Hypogonadism in male E29.1 [facility] [address] [id number] [address] [place] [address] Jun, Diabetes mellitus without me ntion of complication, type II or unspecified type, not stated as uncontrolled 250.00 and Testicular pain, right 608.9 [facility] [address] [id number] [address] [place] [address] May, Hypogonadism in male 257.2 [facility] [address] [id number] [address] [place] [address] Apr, [facility] [address] [id number] [address] [place] [address] Mar, Hypogonadism in male 257.2 [facility] [address] [id number] [address] [place] [address] Mar, [facility] [address] [id number] [address] [place] [address] Mar, [facility] [address] [facility] [id number] [address] [place] [address] Mar, Hypogonadism in male 257.2 [facility] [address] [id number] [address] [place] [address] Feb, Hypogonadism male 257.2 [facility] [address] [id number] [address] [place] [address] 17 Feb, 2015 Diabetes mellitus without me ntion of complication, type II or unspecified type, not stated as uncontrolled 250.00 ; Epididymitis 604.90 and Hypogonadism in male 257.2 [facility] [address] [id number] [address] [place] [address] 15 Feb, 2015 [facility] [address] [id number] [address] [place] [address] 12 Feb, 2015 [facility] [address] [id number] [address] [place] [address] 08 Feb, 2015 Testicular pain, right 608.9 ; Diabetes mellitus without mention of complication, type II or unspecified type, not stated as uncontrolled 250.00 and Family history of heart disease V17.49 [facility] [address] [id number] [address] [place] [address] 03 Feb, 2015 Testicular pain, right 608.9 and Family history of heart disease V17.49 [facility] [address] [id number] [address] [place] [address] Feb, [facility] [address] [id number] [address] [place] [address] 14 Dec, 2014 [facility] [address] [id number] [address] [place] [address] Dec, [facility] [address] [id number] [address] [place] [address] Oct, [facility] [address] [id number] [address] [place] [address] Oct, [facility] [address] [id number] [address] [place] [address] Sep, [facility] [address] [id number] [address] [place] [address] Sep, [facility] [address] [id number] [address] [place] [address] 16 Sep, 2014 [facility] [address] [id number] [address] [place] [address], [place] [address] 16 Sep, 2014 [facility] [address] [id number] [address] [place] [address], [place] [address] 15 Sep, 2014 [facility] [address] [id number] [address] [place] [address], [place] [address] 15 Sep, 2014 [facility] [address] [id number] [address] [place] [address], [place] [address] 14 Sep, 2014 [facility] [address] [id number] [address] [place] [address], [place] [address] Sep, [facility] [address] [id number] [address] [place] [address], [place] [address] Sep, [facility] [address] [id number] [address] [place] [address], [place] [address] Sep, [facility] [address] [id number] [address] [place] [address], [place] [address] Feb, [facility] [address] [id number] [address] [place] [address], [place] [address] Feb, [facility] [address] [id number] [address] [place] [address], [place] [address] January, [facility] [address] [id number] [address] [place] [address], [place] [address] January, [facility] [address] [id number] [address] [place] [address], [place] [address] January, [facility] [address] [id number] [address] [place] [address], [place] [address] January, [facility] [address] [id number] [address] [place] [address], [place] [address] January, [facility] [address] [id number] [address] [place] [address], [place] [address] January, [facility] [address] [id number] [address] [place] [address] Nov, [facility] [address] [id number] [address] [place] [address] Nov, [facility] [address] [id number] [address] [place] [address] Nov, [facility] [address] [id number] [address] [place] [address] Nov, [facility] [address] [id number] [address] [place] [address] Oct, [facility] [address] [id number] [address] [place] [address] Oct, [facility] [address] [id number] [address] [place] [address] Oct, [facility] [address] [id number] [address] [place] [address] Oct, [facility] [address] [id number] [address] [place] [address] Oct, [facility] [address] [id number] [address] [place] [address] Oct, [facility] [address] [id number] [address] [place] [address] Oct, [facility] [address] [id number] [address] [place] [address] Oct, [facility] [address] [id number] [address] [place] [address] Oct, IMMUNIZATIONS No Known Immunizations SOCIAL HISTORY Never Assessed REASON FOR VISIT Establish Care from Dr. Dunham. Noe, RN, Would like a foot exam, hx of hand foot and mouth, c/o lower back pain. PLAN OF CARE VITAL SIGNS Height 70 in 2018-05-07 Weight 301.8 lbs 2018-05-07 Temperature 98 degrees Fahrenheit 2018-05-07 Heart Rate 67 bpm 2018-05-07 Respiratory Rate 18 2018-05-07 Oximetry 99 % 2018-05-07 BMI 43.30 kg/m2 2018-05-07 Blood pressure systolic 132 mmHg 2018-05-07 Blood pressure diastolic 80 mmHg 2018-05-07 MEDICATIONS Medication Instructions Dosage Frequency Start Date End Date Duration S tatus Lamictal 200 mg Orally Once a day 1 tablet 24h 30 da ys Active Lisinopril 20 mg Orally Once a day 1 Tablet by Oral route 1 time per day 24h 30 days Active Trazodone HCl 50 Orally Once a day TAKE ONE TABLET BY M OUTH AT BEDTIME NEEDED 24h 30 days Active RESULTS No Results PROCEDURES Procedure Date Ordered Result Body Site X-RAY EXAM OF LOWER SPINE May 07, 2018 X-RAY EXAM OF NECK SPINE May 07, 2018 Hemoglobin Test Send Out 0 dollar May 07, 2018 ASSAY THYROID STIM HORMONE May 07, 2018 ASSAY OF TOTAL TESTOSTERONE May 07, 2018 LIPID PANEL May 07, 2018 COMPLETE CBC W/AUTO DIFF WBC May 07, 2018 COMPREHEN METABOLIC PANEL May 07, 2018 INSTRUCTIONS MEDICATIONS ADMINISTERED No Known Medications MEDICAL [...]
--- OUTSIDE RECORDS SUMMARY | 2020-01-26 19:44 | XMS REPORT ---
Author Author Deon MUNSON Organization [facility] Address [address] [place] [address] Care Team Providers Care Manager Hair Name Role Phone ED MUNSON Unavailable PROBLEMS Type Condition ICD9-CM Code [id number] Code Onset Dates Condition S tatus SNOMED Code Problem Bipolar disorder, curr episode mixed, severe, wi th psychotic features F31.64 Active 321489826 Problem Low back pain M54.5 Active 637376 007 Problem Anxiety F41.9 Active 48228881 Problem Hypogonadism in male E29.1 Active 68533520 Problem Generalized anxiety disorder F41.1 A ctive 86242578 Problem Mood disorder F39 Active 369127 05 Problem Morbid obesity due to excess calories E66.01 Active 568811528 ALLERGIES No Information ENCOUNTERS Encounter Location Date Diagnosis [facility] [address] [facility] [id number] [address] [place] [phone] Jun, [facility] [address] [facility] [id number] [address] [place] [phone] May, Low back pain M54.5 and Cerv icalgia M54.2 [facility] [address] [facility] [id number] [address] [place] [phone] Apr, Low back pain M54.5 ; Bipola r disorder, curr episode mixed, severe, with psychotic features F31.64 ; Hypogonadism in male E29.1 ; Morbid obesity due to excess calories E66.01 ; Mood disorder F39 and Cervicalgia M54.2 [facility] [address] [facility] [id number] [address] [place] [address] Apr, Bipolar disorder, curr episo de mixed, severe, with psychotic features F31.64 and BMI 40.0-44.9, adult Z68.41 [facility] [address] [facility] [id number] [address] [place] [phone] Apr, Hand, foot and mouth disease B08.4 and Ingrown toenail of right foot with infection L60.0 [place] [address] [place] [id number] [address] [place] [phone] January, Bipolar disorder, curr episo de mixed, severe, with psychotic features F31.64 and BMI 40.0-44.9, adult Z68.41 [place] [address] [place] [id number] Dec, Bipolar disorder, curr episo de mixed, severe, with psychotic features F31.64 [place] [address] [place] [id number] Aug, Bipolar disorder, curr episo de mixed, severe, with psychotic features F31.[address] [phone] Apr, Bipolar disorder, curr episo de mixed, severe, with psychotic features F31.64 [place] [address] [place] [id number] [address] [place] [phone] Mar, Bipolar disorder, curr episo de mixed, severe, with psychotic features F31.64 [place] [address] [place] [id number] [address] [place] [phone] Mar, Bipolar disorder, curr episo de mixed, severe, with psychotic features F31.64 [place] [address] [place] [id number] [address] [place] [phone] Nov, Bipolar disorder, curr episo de mixed, severe, with psychotic features F31.64 [place] [address] [place] [id number] [address] [place] [address] Oct, Bipolar disorder, curr episo de mixed, severe, with psychotic features F31.64 [place] [address] [place] [id number] [address] [place] [phone] Oct, Bipolar disorder, curr episo de mixed, severe, with psychotic features F31.64 [facility] [address] [facility] [id number] [address] [place] [phone] Sep, [facility] [address] [facility] [id number] [address] [place] [address] Sep, Bipolar disorder, curr episo de mixed, severe, with psychotic features F31.64 [facility] [address] [facility] [id number] [address] [place] [phone] Sep, Bipolar disorder, curr episo de mixed, severe, with psychotic features F31.64 [facility] [address] [facility] [id number] [address] [place] [phone] Sep, Bipolar disorder, curr episo de mixed, severe, with psychotic features F31.64 and Generalized anxiety disorder F41.1 [place] [address] [place] [id number] [address] [place] [phone] Jul, Bipolar disorder, curr episo de mixed, severe, with psychotic features F31.64 and Generalized anxiety disorder F41.1 [facility] [address] [facility] [id number] [address] [place] [id number] Jul, [place] [address] [place] [id number] [address] [place] [phone] Jul, Bipolar disorder, curr episo de mixed, severe, with psychotic features F31.64 [place] [address] [place] [id number] [address] [place] [phone] Jul, Bipolar disorder, curr episo de mixed, severe, with psychotic features F31.64 and Generalized anxiety disorder F41.1 [facility] [address] [facility] [id number] [address] [place] [phone] Jul, Bipolar disorder, curr episo de mixed, severe, with psychotic features F31.64 [facility] [address] [facility] [id number] [address] [place] [phone] 02 Jul, 2016 Bipolar II disorder F31.81 a nd Generalized anxiety disorder F41.1 [facility] [address] [id number] [address] [place] [id number] Feb, Dental examination Z01.20 [facility] [address] [id number] [address] [place] [address] Dec, Dental examination Z01.20 [facility] [address] [id number] [address] [place] [id number] Nov, Dental examination Z01.20 [facility] [address] [id number] [address] [place] [id number] Sep, Dental examination Z01.20 [facility] [address] [id number] [address] [place] [phone] Jul, Hypogonadism in male E29.1 [facility] [address] [id number] [address] [place] [phone] Jun, Diabetes mellitus without me ntion of complication, type II or unspecified type, not stated as uncontrolled 250.00 and Testicular pain, right 608.9 [facility] [address] [id number] [address] [place] [address] May, Hypogonadism in male 257.2 [facility] [address] [id number] [address] [place] [phone] Apr, [facility] [address] [id number] [address] [place] [address] Mar, Hypogonadism in male 257.2 [facility] [address] [id number] [address] [place] [id number] Mar, [facility] [address] [id number] [address] [place] [phone] Mar, [facility] [address] [id number] [address] [place] [phone] Mar, Hypogonadism in male 257.2 [facility] [address] [id number] [address] [place] [phone] Feb, Hypogonadism male 257.2 [facility] [address] [id number] [address] [place] [id number] 17 Feb, 2015 Diabetes mellitus without me ntion of complication, type II or unspecified type, not stated as uncontrolled 250.00 ; Epididymitis 604.90 and Hypogonadism in male 257.2 [facility] [address] [id number] [address] [place] [phone] 15 Feb, 2015 [facility] [address] [id number] [address] [place] [phone] 12 Feb, 2015 [facility] [address] [id number] [address] [place] [phone] 08 Feb, 2015 Testicular pain, right 608.9 ; Diabetes mellitus without mention of complication, type II or unspecified type, not stated as uncontrolled 250.00 and Family history of heart disease V17.49 [facility] [address] [id number] [address] [place] [phone] 03 Feb, 2015 Testicular pain, right 608.9 and Family history of heart disease V17.49 [facility] [address] [id number] [address] [place] [phone] Feb, [facility] [address] [id number] [address] [place] [phone] 14 Dec, 2014 [facility] [address] [facility] [id number] [address] [place] [phone] Dec, [facility] [address] [id number] [address] [place] [phone] Oct, [facility] [address] [id number] [address] [place] [phone] Oct, [facility] [address] [id number] [address] [place] [phone] Sep, [facility] [address] [id number] [address] [place] [phone] Sep, [facility] [address] [id number] [address] [place] [phone] 16 Sep, 2014 [facility] [address] [id number] [address] [place] [address], [place] [address] 16 Sep, 2014 [facility] [address] [id number] [address] [place] [address], [place] [phone] 15 Sep, 2014 [facility] [address] [id number] [address] [place] [address], [place] [phone] 15 Sep, 2014 [facility] [address] [id number] [address] [place] [address], [place] [address] 14 Sep, 2014 [facility] [address] [id number] [address] [place] [address], [place] [phone] Sep, [facility] [address] [id number] [address] [place] [address], [place] [phone] Sep, [facility] [address] [id number] [address] [place] [address], [place] [address] Sep, [facility] [address] [id number] [address] [place] [address], [place] [address] Feb, [facility] [address] [id number] [address] [place] [address], [place] [address] Feb, [facility] [address] [id number] [address] [place] [address], [place] [address] January, [facility] [address] [id number] [address] [place] [address], [place] [address] January, [facility] [address] [id number] [address] [place] [address], [place] [address] January, [facility] [address] [id number] [address] [place] [address], [place] [address] January, [facility] [address] [id number] [address] [place] [address], [place] [phone] January, [facility] [address] [id number] [address] [place] [address], [place] [address] January, [facility] [address] [id number] [address] [place] [phone] Nov, [facility] [address] [id number] [address] [place] [phone] Nov, [facility] [address] [id number] [address] [place] [phone] Nov, [facility] [address] [id number] [address] [place] [phone] Nov, [facility] [address] [id number] [address] [place] [phone] Oct, [facility] [address] [id number] [address] [place] [phone] Oct, [facility] [address] [id number] [address] [place] [phone] Oct, [facility] [address] [id number] [address] [place] [phone] Oct, [facility] [address] [id number] [address] [place] [phone] Oct, [facility] [address] [id number] [address] [place] [phone] Oct, [facility] [address] [id number] [address] [place] [phone] Oct, [facility] [address] [id number] [address] [place] [phone] Oct, [facility] [address] [id number] [address] [place] [id number] Oct, IMMUNIZATIONS No Known Immunizations SOCIAL HISTORY Never Assessed REASON FOR VISIT xray correction PLAN OF CARE VITAL SIGNS MEDICATIONS Unknown [...]
--- OUTSIDE RECORDS SUMMARY | 2020-01-26 19:44 | XMS REPORT ---
Author Author Deon SMART Organization [facility] [address] Address [address] [place] [address] Care Team Providers Care Management Psychologist Name Role Phone LIBAN SMARTROBBIE Unavailable PROBLEMS Type Condition ICD9-CM Code CUA40-SH Code Onset Dates Condition S tatus SNOMED Code Problem Bipolar disorder, curr episode mixed, severe, wi th psychotic features F31.64 Active 492218947 Problem Low back pain M54.5 Active 517529 007 Problem Anxiety F41.9 Active 33368462 Problem Hypogonadism in male E29.1 Active 69767395 Problem Generalized anxiety disorder F41.1 A ctive 41192211 Problem Mood disorder F39 Active 907696 05 Problem Morbid obesity due to excess calories E66.01 Active 470348620 ALLERGIES No Known Allergies ENCOUNTERS Encounter Location Date Diagnosis [facility] [address] [id number] [address] [place] [phone] Jun, [facility] [address] [id number] [place] [phone] May, Low back pain M54.5 and Cerv icalgia M54.2 [facility] [address] [id number] [address] [place] [phone] Apr, Low back pain M54.5 ; Bipola r disorder, curr episode mixed, severe, with psychotic features F31.64 ; Hypogonadism in male E29.1 ; Morbid obesity due to excess calories E66.01 ; Mood disorder F39 and Cervicalgia M54.2 [facility] [id number] [place] [phone] Apr, Bipolar disorder, curr episo de mixed, severe, with psychotic features F31.64 and BMI 40.0-44.9, adult Z68.41 [facility] [id number] [place] [id number] Apr, Hand, foot and mouth disease B08.4 and Ingrown toenail of right foot with infection L60.0 [place] [id number] [place] [phone] January, Bipolar disorder, curr episo de mixed, severe, with psychotic features F31.64 and BMI 40.0-44.9, adult Z68.41 [place] [address] [address] Dec, Bipolar disorder, curr episo de mixed, severe, with psychotic features F31.64 [place] [address] [phone] Aug, Bipolar disorder, curr episo de mixed, severe, with psychotic features F31.64 [place] [address] [id number] Apr, Bipolar disorder, curr episo de mixed, severe, with psychotic features F31.64 [place] [id number] [place] [phone] Mar, Bipolar disorder, curr episo de mixed, severe, with psychotic features F31.64 [place] [id number] [place] [phone] Mar, Bipolar disorder, curr episo de mixed, severe, with psychotic features F31.64 [place] [id number] [place] [phone] Nov, Bipolar disorder, curr episo de mixed, severe, with psychotic features F31.64 [place] [address] [id number] Oct, Bipolar disorder, curr episo de mixed, severe, with psychotic features F31.64 [place] [id number] [place] [phone] Oct, Bipolar disorder, curr episo de mixed, severe, with psychotic features F31.64 [facility] [address] [facility] [id number] [address] [place], [place] [id number] Sep, [facility] [address] [facility] [id number] [address] [place] [address] Sep, Bipolar disorder, curr episo de mixed, severe, with psychotic features F31.64 [facility] [address] [facility] [id number] [address] [place] [phone] Sep, Bipolar disorder, curr episo de mixed, severe, with psychotic features F31.64 [facility] [address] [facility] [id number] [address] [place], [place] [address] Sep, Bipolar disorder, curr episo de mixed, severe, with psychotic features F31.64 and Generalized anxiety disorder F41.1 [place] [address] [id number] [address] [place] [id number] Jul, Bipolar disorder, curr episo de mixed, severe, with psychotic features F31.64 and Generalized anxiety disorder F41.1 [facility] [address] [facility] [id number] [address] [place] [id number] Jul, [facility] [address] [id number] [address] [place] [address] Jul, Bipolar disorder, curr episo de mixed, severe, with psychotic features F31.64 [facility] [address] [id number] [address] [place] [phone] Jul, Bipolar disorder, curr episo de mixed, severe, with psychotic features F31.64 and Generalized anxiety disorder F41.1 [facility] [address] [facility] [id number] [address] [place] [phone] Jul, Bipolar disorder, curr episo de mixed, severe, with psychotic features F31.64 [facility] [address] [facility] [id number] [address] [place] [id number] Jul, Bipolar II disorder F31.81 a nd Generalized anxiety disorder F41.1 [facility] [address] [id number] [address] [place] [phone] Feb, Dental examination Z01.20 [facility] [address] [id number] [address] [place] [phone] Dec, Dental examination Z01.20 [facility] [address] [id number] [address] [place] [id number] Nov, Dental examination Z01.20 [facility] [address] [id number] [address] [place] [id number] Sep, Dental examination Z01.20 [facility] [address] [id number] [address] [place] [phone] Jul, Hypogonadism in male E29.1 [facility] [address] [id number] [address] [place] [phone] Jun, Diabetes mellitus without me ntion of complication, type II or unspecified type, not stated as uncontrolled 250.00 and Testicular pain, right 608.9 [facility] [address] [id number] [address] [place] [phone] May, Hypogonadism in male 257.2 [facility] [address] [id number] [address] [place] [id number] Apr, [facility] [address] [id number] [address] [place] [phone] Mar, Hypogonadism in male 257.2 [facility] [address] [id number] [address] [place] [id number] Mar, [facility] [address] [id number] [address] [place] [phone] Mar, [facility] [address] [facility] [id number] [address] [place] [phone] Mar, Hypogonadism in male 257.2 [facility] [address] [id number] [address] [place] [id number] Feb, Hypogonadism male 257.2 [facility] [address] [id number] [address] [place] [phone] 17 Feb, 2015 Diabetes mellitus without me ntion of complication, type II or unspecified type, not stated as uncontrolled 250.00 ; Epididymitis 604.90 and Hypogonadism in male 257.2 [facility] [address] [id number] [address] [place] [id number] 15 Feb, 2015 [facility] [address] [id number] [address] [place] [phone] 12 Feb, 2015 [facility] [address] [id number] [address] [place] [id number] Feb, Testicular pain, right 608.9 ; Diabetes mellitus without mention of complication, type II or unspecified type, not stated as uncontrolled 250.00 and Family history of heart disease V17.49 [facility] [address] [id number] [address] [place] [phone] 03 Feb, 2015 Testicular pain, right 608.9 and Family history of heart disease V17.49 [facility] [address] [id number] [address] [place] [phone] Feb, [facility] [address] [id number] [address] [place] [phone] 14 Dec, 2014 [facility] [address] [id number] [address] [place] [phone] Dec, [facility] [address] [id number] [address] [place] [phone] Oct, [facility] [address] [id number] [address] [place] [phone] Oct, [facility] [address] [id number] [address] [place] [phone] Sep, [facility] [address] [id number] [address] [place] [phone] Sep, [facility] [address] [id number] [address] [place] [address], [place] [id number] 16 Sep, 2014 [facility] [address] [id number] [address] [place] [address], [place] [phone] 16 Sep, 2014 [facility] [address] [id number] [address] [place] [address], [place] [phone] 15 Sep, 2014 [facility] [address] [id number] [address] [place] [address], [place] [id number] 15 Sep, 2014 [facility] [address] [id number] [address] [place] [address], [place] [id number] 14 Sep, 2014 [facility] [address] [id number] [address] [place] [address], [place] [id number] 14 Sep, 2014 [facility] [address] [id number] [address] [place] [address], [place] [id number] 13 Sep, 2014 [facility] [address] [id number] [address] [place] [address], [place] [id number] Sep, [facility] [address] [id number] [address] [place] [address], [place] [id number] Feb, [facility] [address] [id number] [address] [place] [address], [place] [id number] Feb, [facility] [address] [id number] [address] [place] [address], [place] [id number] January, [facility] [address] [id number] [address] [place] [address], [place] [address] January, [facility] [address] [id number] [address] [place] [address], [place] [id number] January, [facility] [address] [id number] [address] [place] [address], [place] [phone] January, [facility] [address] [id number] [address] [place] [address], [place] [id number] January, [facility] [address] [id number] [address] [place] [address], [place] [address] January, [facility] [address] [id number] [address] [place] [phone] Nov, [facility] [address] [id number] [address] [place] [phone] Nov, [facility] [address] [id number] [address] [place] [phone] Nov, [facility] [address] [id number] [address] [place] [phone] Nov, [facility] [address] [id number] [address] [place] [phone] Oct, [facility] [address] [id number] [address] [place] [phone] Oct, [facility] [address] [id number] [address] [place] [phone] Oct, [facility] [address] [id number] [address] [place] [id number] Oct, [facility] [address] [id number] [address] [place] [phone] Oct, [facility] [address] [id number] [address] [place] [phone] Oct, [facility] [address] [id number] [address] [place] [phone] Oct, [facility] [address] [id number] [address] [place] [phone] Oct, [facility] [address] [id number] [address] [place] [phone] Oct, IMMUNIZATIONS No Known Immunizations SOCIAL HISTORY Never Assessed REASON FOR VISIT f/u Tara PLAN OF CARE Activity Details Follow Up 3 Months Reason: VITAL SIGNS Height 70 in 2018-04-16 Weight 300.9 lbs 2018-04-16 Heart Rate 84 bpm 2018-04-16 Respiratory Rate 20 2018-04-16 BMI 43.17 kg/m2 2018-04-16 Blood pressure systolic 128 mmHg 2018-04-16 Blood pressure diastolic 84 mmHg 2018-04-16 MEDICATIONS Medication Instructions Dosage Frequency Start Date End Date Duration S tatus Keflex 500 MG Orally every 6 hrs 1 capsule 6h Apr, 11 2017 10 day(s) Active Lisinopril 20 mg Orally Once a day 1 Tablet by Oral route 1 time per day 24h 30 days Active Trazodone HCl 50 Orally Once a day TAKE ONE TABLET BY M OUTH AT BEDTIME NEEDED 24h 30 days Active Lamictal 200 mg Orally Once a day 1 tablet 24h 30 da ys Active RESULTS No Results PROCEDURES No Known procedures [...]
--- OUTSIDE RECORDS SUMMARY | 2020-01-26 19:44 | XMS REPORT ---
Author Author Deon PRINGLE [facility] Address [address] [place] [address] Care Team Providers Care Door To Door Sales Representative Name Role Phone SATISH PRINGLE Unavailable PROBLEMS Type Condition ICD9-CM Code ONI13-DP Code Onset Dates Condition S tatus SNOMED Code Problem Bipolar disorder, curr episode mixed, severe, wi th psychotic features F31.64 Active 744215084 Problem Low back pain M54.5 Active 062699 007 Problem Anxiety F41.9 Active 93718258 Problem Hypogonadism in male E29.1 Active 30553287 Problem Generalized anxiety disorder F41.1 A ctive 84273581 Problem Mood disorder F39 Active 940745 05 Problem Morbid obesity due to excess calories E66.01 Active 429148496 ALLERGIES No Known Allergies ENCOUNTERS Encounter Location Date Diagnosis [place] [address] [place] [id number] [place] [phone] Jun, [place] [address] [phone] 06 May, 2018 Low back pain M54.5 and Cerv icalgia M54.2 [place] [address] [place] [id number] [place] [phone] Apr, Low back pain M54.5 ; Bipola r disorder, curr episode mixed, severe, with psychotic features F31.64 ; Hypogonadism in male E29.1 ; Morbid obesity due to excess calories E66.01 ; Mood disorder F39 and Cervicalgia M54.2 [facility] [address] [id number] [address] [place] [phone] 08 Apr, 2018 Bipolar disorder, curr episo de mixed, severe, with psychotic features F31.64 and BMI 40.0-44.9, adult Z68.41 [facility] [id number] [place] [phone] Apr, Hand, foot and mouth disease B08.4 and Ingrown toenail of right foot with infection L60.0 [facility] [address] [place] [address] [id number] [place] [phone] January, Bipolar disorder, curr episo de mixed, severe, with psychotic features F31.64 and BMI 40.0-44.9, adult Z68.41 [place] [address] [place] [id number] [place] [phone] Dec, Bipolar disorder, curr episo de mixed, severe, with psychotic features F31.64 [place] [address] [place] [id number] [place] [phone] Aug, Bipolar disorder, curr episo de mixed, severe, with psychotic features F31.64 [place] [address] [address] Apr, Bipolar disorder, curr episo de mixed, severe, with psychotic features F31.64 [place] [address] [place] [id number] [place] [phone] Mar, Bipolar disorder, curr episo de mixed, severe, with psychotic features F31.64 [place] [address] [place] [id number] [place] [phone] Mar, Bipolar disorder, curr episo de mixed, severe, with psychotic features F31.64 [place] [address] [place] [id number] [address] [place] [phone] Nov, Bipolar disorder, curr episo de mixed, severe, with psychotic features F31.64 [place] [address] [place] [id number] [place] [phone] Oct, Bipolar disorder, curr episo de mixed, severe, with psychotic features F31.64 [place] [address] [place] [place] [id number] [place] [phone] Oct, Bipolar disorder, curr episo de mixed, severe, with psychotic features F31.64 [facility] [address] [facility] [id number] [address] [place] [phone] Sep, [facility] [address] [facility] [id number] [address] [place], [place] [phone] Sep, Bipolar disorder, curr episo de mixed, severe, with psychotic features F31.64 [place] [address] [place] [id number] [place] [phone] Sep, Bipolar disorder, curr episo de mixed, severe, with psychotic features F31.64 [place] [address] [place] [id number] [address] [place] [phone] Sep, Bipolar disorder, curr episo de mixed, severe, with psychotic features F31.64 and Generalized anxiety disorder F41.1 [place] [address] [place] [id number] [address] [place] [phone] Jul, Bipolar disorder, curr episo de mixed, severe, with psychotic features F31.64 and Generalized anxiety disorder F41.1 [place] [address] [place] [id number] [address] [place] [phone] Jul, [place] [address] [place] [id number] [address] [place] [phone] Jul, Bipolar disorder, curr episo de mixed, severe, with psychotic features F31.64 [place] [address] [place] [id number] [address] [place] [phone] Jul, Bipolar disorder, curr episo de mixed, severe, with psychotic features F31.64 and Generalized anxiety disorder F41.1 [place] [address] [place] [id number] [address] [place] [phone] Jul, Bipolar disorder, curr episo de mixed, severe, with psychotic features F31.64 [place] [address] [place] [id number] [address] [place] [phone] Jul, Bipolar II disorder F31.81 a nd Generalized anxiety disorder F41.1 [facility] [address] [id number] [address] [place] [phone] 15 Feb, 2016 Dental examination Z01.20 [facility] [address] [id number] [address] [place] [phone] Dec, Dental examination Z01.20 [facility] [address] [id number] [address] [place] [id number] Nov, Dental examination Z01.20 [facility] [address] [id number] [address] [place] [id number] Sep, Dental examination Z01.20 [facility] [address] [id number] [address] [place] [phone] Jul, Hypogonadism in male E29.1 [facility] [address] [id number] [address] [place] [phone] Jun, Diabetes mellitus without me ntion of complication, type II or unspecified type, not stated as uncontrolled 250.00 and Testicular pain, right 608.9 [facility] [address] [id number] [address] [place] [address] May, Hypogonadism in male 257.2 [facility] [address] [id number] [address] [place] [phone] Apr, [facility] [address] [id number] [address] [place] [phone] Mar, Hypogonadism in male 257.2 [facility] [address] [id number] [address] [place] [phone] Mar, [facility] [address] [id number] [address] [place] [phone] Mar, [facility] [address] [id number] [address] [place] [phone] Mar, Hypogonadism in male 257.2 [facility] [address] [id number] [address] [place] [phone] Feb, Hypogonadism male 257.2 [facility] [address] [id number] [address] [place] [phone] 17 Feb, 2015 Diabetes mellitus without me ntion of complication, type II or unspecified type, not stated as uncontrolled 250.00 ; Epididymitis 604.90 and Hypogonadism in male 257.2 [facility] [address] [id number] [address] [place] [phone] 15 Feb, 2015 [facility] [address] [id number] [address] [place] [phone] 12 Feb, 2015 [facility] [address] [id number] [address] [place] [phone] 08 Feb, 2015 Testicular pain, right 608.9 ; Diabetes mellitus without mention of complication, type II or unspecified type, not stated as uncontrolled 250.00 and Family history of heart disease V17.49 [facility] [address] [facility] [id number] [address] [place] [phone] 03 Feb, 2015 Testicular pain, right 608.9 and Family history of heart disease V17.49 [facility] [address] [facility] [id number] [address] [place] [phone] Feb, [facility] [address] [facility] [id number] [address] [place] [phone] Dec, [facility] [address] [facility] [id number] [address] [place] [phone] Dec, [facility] [address] [facility] [id number] [address] [place] [phone] Oct, [facility] [address] [id number] [address] [place] [phone] Oct, [facility] [address] [facility] [id number] [address] [place] [phone] Sep, [facility] [address] [facility] [id number] [address] [place] [phone] Sep, [facility] [address] [id number] [address] [place] [address], [place] [address] 16 Sep, 2014 [facility] [address] [id number] [address] [place] [address], [place] [address] 16 Sep, 2014 [facility] [address] [id number] [address] [place] [address], [place] [address] 15 Sep, 2014 [facility] [address] [id number] [address] [place] [address], [place] [phone] 15 Sep, [address] [facility] [address] [id number] [address] [place] [address], [place] [address] 14 Sep, 2014 [facility] [address] [id number] [address] [place] [address], [place] [address] 14 Sep, 2014 [facility] [address] [id number] [address] [place] [address], [place] [address] Sep, [facility] [address] [id number] [address] [place] [address], [place] [address] Sep, [facility] [address] [id number] [address] [place] [address], [place] [address] Feb, [facility] [address] [id number] [address] [place] [address], [place] [address] Feb, [facility] [address] [id number] [address] [place] [address], [place] [address] January, [facility] [address] [id number] [address] [place] [address], [place] [address] January, [facility] [address] [id number] [address] [place] [address], [place] [address] January, [facility] [address] [id number] [address] [place] [address], [place] [address] January, [facility] [address] [id number] [address] [place] [address], [place] [address] January, [facility] [address] [id number] [address] [place] [address], [place] [address] January, [facility] [address] [id number] [address] [place] [phone] Nov, [facility] [address] [id number] [address] [place] [phone] Nov, [facility] [address] [id number] [address] [place] [phone] Nov, [facility] [address] [id number] [address] [place] [phone] Nov, [facility] [address] [id number] [address] [place] [phone] Oct, [facility] [address] [id number] [address] [place] [phone] Oct, [facility] [address] [id number] [address] [place] [phone] Oct, [facility] [address] [id number] [address] [place] [phone] Oct, [facility] [address] [id number] [address] [place] [phone] Oct, [facility] [address] [id number] [address] [place] [phone] Oct, [facility] [address] [id number] [address] [place] [phone] Oct, [facility] [address] [id number] [address] [place] [phone] Oct, [facility] [address] [id number] [address] [place] [phone] Oct, IMMUNIZATIONS No Known Immunizations SOCIAL HISTORY Never Assessed REASON FOR VISIT foot and hand rash started yesterday JStrasserRN PLAN OF CARE Activity Details Follow Up prn Reason: VITAL SIGNS Height 70 in 2018-04-09 Weight 301.6 lbs 2018-04-09 Temperature 98.5 degrees Fahrenheit 2018-04-09 Heart Rate 70 bpm 2018-04-09 Respiratory Rate 20 2018-04-09 BMI 43.27 kg/m2 2018-04-09 Blood pressure systolic 124 mmHg 2018-04-09 Blood pressure diastolic 90 mmHg 2018-04-09 MEDICATIONS Medication Instructions Dosage Frequency Start Date End Date Duration S tatus Trazodone HCl 50 Orally Once a day TAKE ONE TABLET BY M OUTH AT BEDTIME NEEDED 24h 30 days Active Lamictal 200 MG Orally Once a day 1 tablet 24h 30 da ys Active Keflex 500 MG Orally every 6 hrs 1 capsule 6h Apr, 11 A 2017 10 day(s) Active Lisinopril 20 mg Orally Once a day 1 Tablet by Oral route 1 time per day 24h 30 days Active RESULTS No Results PROCEDURES No Known [...]
--- OUTSIDE RECORDS SUMMARY | 2020-01-26 19:44 | XMS REPORT ---
Author Author Deon Avila Doctor Organization [facility] Address Unknown Phone Unavailable Care Team Providers Care Detail Manager Name Role Phone Migration, Doctor Unavailable Unavailable PROBLEMS Type Condition ICD9-CM Code PSW18-HO Code Onset Dates Condition S tatus SNOMED Code Problem Bipolar disorder, curr episode mixed, severe, wi th psychotic features F31.64 Active 597810634 Problem Generalized anxiety disorder F41.1 A ctive 17676455 Problem Low back pain M54.5 Active 908485 007 Problem Observed sleep apnea G47.30 Active 85449581 Problem Hypogonadism in male E29.1 Active 03614373 Problem Morbid obesity due to excess calories E66.01 Active 593974636 Problem Mood disorder F39 Active 678979 05 Problem Anxiety F41.9 Active 19208876 ALLERGIES No Information ENCOUNTERS Encounter Location Date Diagnosis [place] [address] [place] [id number] [place] [address] Mar, [place] [address] [address] Dec, Bipolar disorder, curr episo de mixed, severe, with psychotic features F31.64 ; BMI 40.0-44.9, adult Z68.41 and Morbid obesity E66.01 [place] [address] [place] [id number] [place] [address] Nov, Snoring R06.83 and Observed sleep apnea G47.30 [place] [address] [place] [id number] [place] [id number] 15 Oct, 2018 Bipolar disorder, curr episo de mixed, severe, with psychotic features F31.64 and BMI 40.0-44.9, adult Z68.41 [place] [address] [place] [id number] [address] [place] [address] May, Low back pain M54.5 and Cerv icalgia M54.2 [place] [address] [place] [id number] [address] [place] [address] Apr, Low back pain M54.5 ; Bipola r disorder, curr episode mixed, severe, with psychotic features F31.64 ; Hypogonadism in male E29.1 ; Morbid obesity due to excess calories E66.01 ; Mood disorder F39 and Cervicalgia M54.2 [place] [address] [place] [id number] [place] [address] Apr, Bipolar disorder, curr episo de mixed, severe, with psychotic features F31.64 and BMI 40.0-44.9, adult Z68.41 [facility] [address] [place] [id number] [place] [address] Apr, Hand, foot and mouth disease B08.4 and Ingrown toenail of right foot with infection L60.0 [place] [id number] [address] [place] [address] January, Bipolar disorder, curr episo de mixed, severe, with psychotic features F31.64 and BMI 40.0-44.9, adult Z68.41 [place] [address] [place] [id number] [place] [address] Dec, Bipolar disorder, curr episo de mixed, severe, with psychotic features F31.64 [place] [address] [place] [id number] [place] [address] Aug, Bipolar disorder, curr episo de mixed, severe, with psychotic features F31.64 [place] [address] [place] [id number] [address] [place] [address] Apr, Bipolar disorder, curr episo de mixed, severe, with psychotic features F31.64 [place] [address] [place] [id number] [address] [place] [address] Mar, Bipolar disorder, curr episo de mixed, severe, with psychotic features F31.64 [place] [address] [place] [id number] [address] [place] [address] Mar, Bipolar disorder, curr episo de mixed, severe, with psychotic features F31.64 [facility] [address] [facility] [id number] [address] [place] [address] Nov, Bipolar disorder, curr episo de mixed, severe, with psychotic features F31.64 [facility] [address] [facility] [id number] [address] [place] [address] Oct, Bipolar disorder, curr episo de mixed, severe, with psychotic features F31.64 [facility] [address] [facility] [id number] [address] [place] [address] Oct, Bipolar disorder, curr episo de mixed, severe, with psychotic features F31.64 [facility] [address] [facility] [id number] [address] [place] [address] Sep, [facility] [address] [facility] [id number] [address] [place] [phone] Sep, Bipolar disorder, curr episo de mixed, severe, with psychotic features F31.64 [facility] [address] [facility] [id number] [address] [place] [address] Sep, Bipolar disorder, curr episo de mixed, severe, with psychotic features F31.64 [facility] [address] [facility] [id number] [address] [place] [address] Sep, Bipolar disorder, curr episo de mixed, severe, with psychotic features F31.64 and Generalized anxiety disorder F41.1 [facility] [address] [facility] [id number] [address] [place] [address] Jul, Bipolar disorder, curr episo de mixed, severe, with psychotic features F31.64 and Generalized anxiety disorder F41.1 [facility] [address] [facility] [id number] [address] [place] [address] Jul, [facility] [address] [facility] [id number] [address] [place] [address] Jul, Bipolar disorder, curr episo de mixed, severe, with psychotic features F31.64 [facility] [address] [facility] [id number] [address] [place] [id number] 15 Jul, 2016 Bipolar disorder, curr episo de mixed, severe, with psychotic features F31.64 and Generalized anxiety disorder F41.1 [facility] [address] [facility] [id number] [address] [place] [address] 11 Jul, 2016 Bipolar disorder, curr episo de mixed, severe, with psychotic features F31.64 [facility] [address] [facility] [id number] [address] [place] [id number] 02 Jul, 2016 Bipolar II disorder F31.81 a nd Generalized anxiety disorder F41.1 [place] [address] [facility] [id number] [address] [place] [address] Feb, Dental examination Z01.20 [place] [address] [place] [id number] [address] [place] [address] Dec, Dental examination Z01.20 [facility] [address] [id number] [address] [place] [address] [id number] Nov, Dental examination Z01.20 [facility] [address] [id number] [address] [place] [address] [id number] Sep, Dental examination Z01.20 [place] [address] [place] [id number] [address] [place] [address] Jul, Hypogonadism in male E29.1 [place] [address] [facility] [id number] [address] [place] [id number] 07 Jun, 2015 Diabetes mellitus without me ntion of complication, type II or unspecified type, not stated as uncontrolled 250.00 and Testicular pain, right 608.9 [place] [address] [facility] [id number] [address] [place] [phone] 23 May, 2015 Hypogonadism in male 257.2 [place] [address] [place] [id number] [address] [place] [id number] Apr, [place] [address] [facility] [id number] [address] [place] [phone] Mar, Hypogonadism in male 257.2 [facility] [address] [id number] [address] [place] [address] Mar, [facility] [address] [id number] [address] [place] [id number] Mar, [facility] [address] [facility] [id number] [address] [place] [id number] Mar, Hypogonadism in male 257.2 [facility] [address] [id number] [address] [place] [phone] Feb, Hypogonadism male 257.2 [facility] [address] [facility] [id number] [address] [place] [phone] Feb, Diabetes mellitus without me ntion of complication, type II or unspecified type, not stated as uncontrolled 250.00 ; Epididymitis 604.90 and Hypogonadism in male 257.2 [facility] [address] [facility] [id number] [address] [place] [id number] Feb, [facility] [address] [facility] [id number] [address] [place] [phone] Feb, [facility] [address] [facility] [id number] [address] [place] [address] Feb, Testicular pain, right 608.9 ; Diabetes mellitus without mention of complication, type II or unspecified type, not stated as uncontrolled 250.00 and Family history of heart disease V17.49 [facility] [address] [id number] [address] [place] [address] Feb, Testicular pain, right 608.9 and Family history of heart disease V17.49 [facility] [address] [facility] [id number] [address] [place] [phone] Feb, [facility] [address] [facility] [id number] [address] [place] [address] Dec, [facility] [address] [id number] [address] [place] [address], [place] [address] 13 Dec, 2014 [facility] [address] [id number] [address] [place] [address], [place] [address] 16 Oct, 2014 [facility] [address] [id number] [address] [place] [address], [place] [address] 16 Oct, 2014 [facility] [address] [id number] [address] [place] [address], [place] [address] 16 Sep, 2014 [facility] [address] [id number] [address] [place] [address], [place] [address] 16 Sep, 2014 [facility] [address] [id number] [address] [place] [address], [place] [address] 16 Sep, 2014 [facility] [address] [id number] [address] [place] [address], [place] [id number] 16 Sep, 2014 [facility] [address] [id number] [address] [place] [address], [place] [id number] 15 Sep, 2014 [facility] [address] [id number] [address] [place] [address], [place] [address] 15 Sep, 2014 [facility] [address] [id number] [address] [place] [address], [place] [address] 14 Sep, 2014 [facility] [address] [id number] [address] [place] [address], [place] [id number] 14 Sep, 2014 [facility] [address] [id number] [address] [place] [address], [place] [id number] Sep, [facility] [address] [id number] [address] [place] [address], [place] [address] Sep, [facility] [address] [id number] [address] [place] [address], [place] [id number] Feb, [facility] [address] [id number] [address] [place] [address], [place] [address] Feb, [facility] [address] [id number] [address] [place] [address] [address] January, [facility] [address] [id number] [address] [place] [address], [place] [id number] January, [facility] [address] [id number] [address] [place] [address], [place] [address] January, [facility] [address] [id number] [address] [place] [address], [place] [address] January, [facility] [address] [id number] [address] [place] [address], [place] [id number] January, [facility] [address] [id number] [address] [place] [address], [place] [id number] January, [facility] [address] [id number] [address] [place] [address], [place] [id number] Nov, [facility] [address] [id number] [address] [place] [address], [place] [id number] Nov, [facility] [address] [id number] [address] [place] [address], [place] [address] Nov, [facility] [address] [id number] [address] [place] [address], [place] [id number] Nov, [facility] [address] [id number] [address] [place] [address], [place] [id number] Oct, [facility] [address] [id number] [address] [place] [address], [place] [id number] Oct, [facility] [address] [id number] [address] [place] [address], [place] [id number] Oct, [facility] [address] [id number] [address] [place] [address], [place] [address] Oct, [facility] [address] [id number] [address] [place] [address], [place] [address] Oct, [facility] [address] [id number] [address] [place] [address], [place] [id number] Oct, [facility] [address] [id number] [address] [place] [id number] 14 Oct, 2013 [facility] [address] [facility] [id number] [address] [place] [id number] 14 Oct, 2013 [facility] [address] [facility] [id number] [address] [place] [id number] 13 Oct, 2013 IMMUNIZATIONS No Known Immunizations SOCIAL HISTORY Never Assessed REASON FOR VISIT EMR-[facility] PLAN OF CARE VITAL SIGNS MEDICATIONS Unknown [...]
--- OUTSIDE RECORDS SUMMARY | 2020-01-26 19:44 | XMS REPORT ---
Author Author Deon Avila Doctor Organization [facility] Address Unknown Phone Unavailable Care Team Providers Care Route Delivery Manager Name Role Phone Migration, Doctor Unavailable Unavailable PROBLEMS Type Condition ICD9-CM Code [id number] Code Onset Dates Condition S tatus SNOMED Code Problem Bipolar disorder, curr episode mixed, severe, wi th psychotic features F31.64 Active 114144482 Problem Generalized anxiety disorder F41.1 A ctive 43253373 Problem Low back pain M54.5 Active 557462 007 Problem Observed sleep apnea G47.30 Active 57650661 Problem Hypogonadism in male E29.1 Active 47776717 Problem Morbid obesity due to excess calories E66.01 Active 317028447 Problem Mood disorder F39 Active 682120 05 Problem Anxiety F41.9 Active 25726320 ALLERGIES No Information ENCOUNTERS Encounter Location Date Diagnosis [place] [id number] [place] [id number] [place] [address] Dec, [place] [address] [address] Nov, Snoring R06.83 and Observed sleep apnea G47.30 [place] [address] [place] [id number] [place] [address] 15 Oct, 2018 Bipolar disorder, curr episo de mixed, severe, with psychotic features F31.64 and BMI 40.0-44.9, adult Z68.41 [facility] [address] [place] [id number] [place] [address] May, Low back pain M54.5 and Cerv icalgia M54.2 [facility] [address] [place] [id number] [address] [place] [address] Apr, Low back pain M54.5 ; Bipola r disorder, curr episode mixed, severe, with psychotic features F31.64 ; Hypogonadism in male E29.1 ; Morbid obesity due to excess calories E66.01 ; Mood disorder F39 and Cervicalgia M54.2 [place] [id number] [place] [address] Apr, Bipolar disorder, curr episo de mixed, severe, with psychotic features F31.64 and BMI 40.0-44.9, adult Z68.41 [facility] [address] [place] [id number] [address] [place] [address] Apr, Hand, foot and mouth disease B08.4 and Ingrown toenail of right foot with infection L60.0 [place] [address] [place] [id number] [place] [address] January, Bipolar disorder, curr episo de mixed, severe, with psychotic features F31.64 and BMI 40.0-44.9, adult Z68.41 [place] [address] [address] Dec, Bipolar disorder, curr episo de mixed, severe, with psychotic features F31.64 [place] [address] [place] [id number] [place] [address] Aug, Bipolar disorder, curr episo de mixed, severe, with psychotic features F31.64 [place] [address] [place] [id number] [place] [address] Apr, Bipolar disorder, curr episo de mixed, severe, with psychotic features F31.64 [place] [address] [place] [id number] [place] [address] Mar, Bipolar disorder, curr episo de mixed, severe, with psychotic features F31.64 [place] [address] [place] [id number] [place] [address] Mar, Bipolar disorder, curr episo de mixed, severe, with psychotic features F31.64 [place] [address] [place] [id number] [place] [address] Nov, Bipolar disorder, curr episo de mixed, severe, with psychotic features F31.64 [facility] [address] [facility] [id number] [address] [place] [address] Oct, Bipolar disorder, curr episo de mixed, severe, with psychotic features F31.64 [facility] [address] [facility] [id number] [address] [place] [address] Oct, Bipolar disorder, curr episo de mixed, severe, with psychotic features F31.64 [facility] [address] [facility] [id number] [address] [place] [address] Sep, [facility] [address] [facility] [id number] [address] [place] [address] Sep, Bipolar disorder, curr episo de mixed, severe, with psychotic features F31.64 [place] [address] [place] [id number] [address] [place] [address] Sep, Bipolar disorder, curr episo de mixed, severe, with psychotic features F31.64 [facility] [address] [facility] [id number] [address] [place] [address] Sep, Bipolar disorder, curr episo de mixed, severe, with psychotic features F31.64 and Generalized anxiety disorder F41.1 [facility] [address] [facility] [id number] [address] [place] [address] Jul, Bipolar disorder, curr episo de mixed, severe, with psychotic features F31.64 and Generalized anxiety disorder F41.1 [facility] [address] [facility] [id number] [address] [place] [address] Jul, [facility] [address] [facility] [id number] [address] [place] [address] Jul, Bipolar disorder, curr episo de mixed, severe, with psychotic features F31.64 [facility] [address] [facility] [id number] [address] [place] [address] Jul, Bipolar disorder, curr episo de mixed, severe, with psychotic features F31.64 and Generalized anxiety disorder F41.1 [facility] [address] [id number] [address] [place] [address] 11 Jul, 2016 Bipolar disorder, curr episo de mixed, severe, with psychotic features F31.64 [facility] [address] [facility] [id number] [address] [place] [address] 02 Jul, 2016 Bipolar II disorder F31.81 a nd Generalized anxiety disorder F41.1 [facility] [address] [facility] [id number] [address] [place] [address] Feb, Dental examination Z01.20 [facility] [address] [facility] [id number] [address] [place] [address] Dec, Dental examination Z01.20 [facility] [address] [id number] [address] [place] [id number] Nov, Dental examination Z01.20 [facility] [id number] [place] [id number] Sep, Dental examination Z01.20 [facility] [address] [facility] [id number] [address] [place] [address] Jul, Hypogonadism in male E29.1 [place] [address] [facility] [id number] [address] [place] [address] Jun, Diabetes mellitus without me ntion of complication, type II or unspecified type, not stated as uncontrolled 250.00 and Testicular pain, right 608.9 [place] [address] [facility] [id number] [address] [place] [address] May, Hypogonadism in male 257.2 [facility] [address] [facility] [id number] [address] [place] [address] Apr, [place] [address] [facility] [id number] [address] [place] [address] Mar, Hypogonadism in male 257.2 [facility] [address] [facility] [id number] [address] [place] [address] Mar, [place] [address] [place] [id number] [address] [place] [address] Mar, [facility] [address] [id number] [address] [place] [address] Mar, Hypogonadism in male 257.2 [facility] [address] [id number] [address] [place] [address] Feb, Hypogonadism male 257.2 [facility] [address] [id number] [address] [place] [address] Feb, Diabetes mellitus without me ntion of complication, type II or unspecified type, not stated as uncontrolled 250.00 ; Epididymitis 604.90 and Hypogonadism in male 257.2 [facility] [address] [facility] [id number] [address] [place] [address] Feb, [facility] [address] [facility] [id number] [address] [place] [address] Feb, [facility] [address] [facility] [id number] [address] [place] [address] Feb, Testicular pain, right 608.9 ; Diabetes mellitus without mention of complication, type II or unspecified type, not stated as uncontrolled 250.00 and Family history of heart disease V17.49 [facility] [address] [facility] [id number] [address] [place] [address] Feb, Testicular pain, right 608.9 and Family history of heart disease V17.49 [facility] [address] [id number] [address] [place] [address] Feb, [facility] [address] [facility] [id number] [address] [place] [address] Dec, [facility] [address] [facility] [id number] [address] [place] [address] Dec, [facility] [address] [facility] [id number] [address] [place] [address] Oct, [facility] [address] [id number] [address] [place] [address], [place] [address] 16 Oct, 2014 [facility] [address] [id number] [address] [place] [address], [place] [id number] 16 Sep, 2014 [facility] [address] [id number] [address] [place] [address], [place] [address] 16 Sep, 2014 [facility] [address] [id number] [address] [place] [address], [place] [address] 16 Sep, 2014 [facility] [address] [id number] [address] [place] [address], [place] [address] 16 Sep, 2014 [facility] [address] [id number] [address] [place] [address], [place] [id number] 15 Sep, 2014 [facility] [address] [id number] [address] [place] [address], [place] [address] 15 Sep, 2014 [facility] [address] [id number] [address] [place] [address], [place] [address] 14 Sep, 2014 [facility] [address] [id number] [address] [place] [address], [place] [address] 14 Sep, 2014 [facility] [address] [id number] [address] [place] [address], [place] [address] Sep, [facility] [address] [id number] [address] [place] [address], [place] [address] Sep, [facility] [address] [id number] [address] [place] [address], [place] [address] Feb, [facility] [address] [id number] [address] [place] [address], [place] [address] Feb, [facility] [address] [id number] [address] [place] [address], [place] [address] January, [facility] [address] [id number] [address] [place] [address], [place] [address] January, [facility] [address] [id number] [address] [place] [address], [place] [address] January, [facility] [address] [id number] [address] [place] [address], [place] [address] January, [facility] [address] [id number] [address] [place] [address], [place] [address] January, [facility] [address] [id number] [address] [place] [address], [place] [address] January, [facility] [address] [id number] [address] [place] [address], [place] [address] Nov, [facility] [address] [id number] [address] [place] [address], [place] [address] Nov, [facility] [address] [id number] [address] [place] [address], [place] [address] Nov, [facility] [address] [id number] [address] [place] [address], [place] [address] Nov, [facility] [address] [id number] [address] [place] [address], [place] [id number] Oct, [facility] [address] [id number] [address] [place] [address], [place] [address] Oct, [facility] [address] [id number] [address] [place] [address], [place] [address] Oct, [facility] [address] [id number] [address] [place] [address], [place] [address] Oct, [facility] [address] [id number] [address] [place] [address], [place] [id number] Oct, [facility] [address] [id number] [address] [place] [address], [place] [address] Oct, [facility] [address] [id number] [address] [place] [address], [place] [address] Oct, [facility] [address] [id number] [address] [place] [address], [place] [address] Oct, [facility] [address] [id number] [facility] [place] [address] Oct, IMMUNIZATIONS No Known Immunizations SOCIAL HISTORY Never Assessed REASON FOR VISIT EMR-[facility] [place] PLAN OF CARE VITAL SIGNS MEDICATIONS Medication Instructions Dosage Frequency Start Date End Date Duration S tatus Gabapentin 300 mg 1 capsule by Oral route 1 time per d ay at night Sep, Active Lisinopril 20 mg 1 Tablet by Oral route 1 time per day 1 4 Sep, 2014 Active Wellbutrin XL 150 mg 1 tablet by Oral route 1 time per day Sep, Active Tamiflu 75 mg 1 capsule by Oral ro [place] 1 time per day for 10 day(s) Prophylaxis Dosing Oct, Active RESULTS No Results PROCEDURES No Known [...]
--- OUTSIDE RECORDS SUMMARY | 2020-01-26 19:44 | XMS REPORT ---
Author Author Deon Avila Doctor Organization [facility] Address Unknown Phone Unavailable Care Team Providers Care Manager Respiratory Name Role Phone Migration, Doctor Unavailable Unavailable PROBLEMS Type Condition ICD9-CM Code [id number] Code Onset Dates Condition S tatus SNOMED Code Problem Bipolar disorder, curr episode mixed, severe, wi th psychotic features F31.64 Active 843489743 Problem Generalized anxiety disorder F41.1 A ctive 95595706 Problem Low back pain M54.5 Active 032408 007 Problem Observed sleep apnea G47.30 Active 37954487 Problem Hypogonadism in male E29.1 Active 01479264 Problem Morbid obesity due to excess calories E66.01 Active 283791221 Problem Mood disorder F39 Active 660947 05 Problem Anxiety F41.9 Active 13825533 ALLERGIES No Information ENCOUNTERS Encounter Location Date Diagnosis [facility] [address] [id number] Mar, [facility] [address] [address] January, Strain of lumbar region, ini tial encounter S39.012A [facility] [address] [place] [id number] [place] [address] Dec, Snoring R06.83 [place] [id number] [place] [phone] Dec, Bipolar disorder, curr episo de mixed, severe, with psychotic features F31.64 ; BMI 40.0-44.9, adult Z68.41 and Morbid obesity E66.01 [facility] [address] [id number] [place] [phone] Nov, Snoring R06.83 and Observed sleep apnea G47.30 [facility] [address] [address] Oct, Bipolar disorder, curr episo de mixed, severe, with psychotic features F31.64 and BMI 40.0-44.9, adult Z68.41 [place] [address] [id number] [place] [phone] May, Low back pain M54.5 and Cerv icalgia M54.[address] [address] Apr, Low back pain M54.5 ; Bipola r disorder, curr episode mixed, severe, with psychotic features F31.64 ; Hypogonadism in male E29.1 ; Morbid obesity due to excess calories E66.01 ; Mood disorder F39 and Cervicalgia M54.2 [place] [address] [address] Apr, Bipolar disorder, curr episo de mixed, severe, with psychotic features F31.64 and BMI 40.0-44.9, adult Z68.41 [facility] [id number] [place] [phone] Apr, Hand, foot and mouth disease B08.4 and Ingrown toenail of right foot with infection L60.0 [place] [address] [id number] [place] [address] January, Bipolar disorder, curr episo de mixed, severe, with psychotic features F31.64 and BMI 40.0-44.9, adult Z68.41 [place] [address] [id number] [place] [phone] Dec, Bipolar disorder, curr episo de mixed, severe, with psychotic features F31.64 [place] [address] [id number] [place] [phone] Aug, Bipolar disorder, curr episo de mixed, severe, with psychotic features F31.64 [place] [address] [place] [id number] [place] [phone] Apr, Bipolar disorder, curr episo de mixed, severe, with psychotic features F31.64 [facility] [address] [facility] [id number] [address] [place] [phone] Mar, Bipolar disorder, curr episo de mixed, severe, with psychotic features F31.64 [facility] [address] [facility] [id number] [address] [place] [id number] Mar, Bipolar disorder, curr episo de mixed, severe, with psychotic features F31.64 [place] [address] [place] [id number] [address] [place] [id number] Nov, Bipolar disorder, curr episo de mixed, severe, with psychotic features F31.64 [place] [address] [place] [id number] [address] [place] [phone] Oct, Bipolar disorder, curr episo de mixed, severe, with psychotic features F31.64 [place] [address] [place] [id number] [address] [place] [phone] Oct, Bipolar disorder, curr episo de mixed, severe, with psychotic features F31.64 [place] [address] [place] [id number] [address] [place] [address] Sep, [place] [address] [place] [id number] [address] [place] [phone] Sep, Bipolar disorder, curr episo de mixed, severe, with psychotic features F31.64 [place] [address] [place] [id number] [address] [place] [phone] Sep, Bipolar disorder, curr episo de mixed, severe, with psychotic features F31.64 [place] [address] [facility] [id number] [address] [place] [phone] Sep, Bipolar disorder, curr episo de mixed, severe, with psychotic features F31.64 and Generalized anxiety disorder F41.1 [facility] [address] [facility] [id number] [address] [place] [phone] Jul, Bipolar disorder, curr episo de mixed, severe, with psychotic features F31.64 and Generalized anxiety disorder F41.1 [facility] [address] [id number] [address] [place] [phone] Jul, [facility] [address] [id number] [address] [place] [phone] Jul, Bipolar disorder, curr episo de mixed, severe, with psychotic features F31.64 [facility] [address] [id number] [address] [place] [phone] Jul, Bipolar disorder, curr episo de mixed, severe, with psychotic features F31.64 and Generalized anxiety disorder F41.1 [place] [address] [facility] [id number] [address] [place] [phone] Jul, Bipolar disorder, curr episo de mixed, severe, with psychotic features F31.64 [place] [address] [facility] [id number] [address] [place] [phone] Jul, Bipolar II disorder F31.81 a nd Generalized anxiety disorder F41.1 [place] [address] [facility] [id number] [address] [place] [phone] Feb, Dental examination Z01.20 [place] [address] [facility] [id number] [address] [place] [phone] Dec, Dental examination Z01.20 [facility] [address] [id number] [address] [place] [id number] Nov, Dental examination Z01.20 [facility] [address] [id number] [address] [place] [id number] Sep, Dental examination Z01.20 [facility] [address] [facility] [id number] [address] [place] [phone] Jul, Hypogonadism in male E29.1 [facility] [address] [facility] [id number] [address] [place] [phone] 07 Jun, 2015 Diabetes mellitus without me ntion of complication, type II or unspecified type, not stated as uncontrolled 250.00 and Testicular pain, right 608.9 [facility] [address] [id number] [address] [place] [phone] May, Hypogonadism in male 257.2 [facility] [address] [id number] [address] [place] [phone] Apr, [facility] [address] [id number] [address] [place] [phone] Mar, Hypogonadism in male 257.2 [facility] [address] [id number] [address] [place] [phone] Mar, [facility] [address] [id number] [address] [place] [phone] Mar, [facility] [address] [id number] [address] [place] [phone] Mar, Hypogonadism in male 257.2 [facility] [address] [id number] [address] [place] [phone] Feb, Hypogonadism male 257.2 [facility] [address] [id number] [address] [place] [phone] Feb, Diabetes mellitus without me ntion of complication, type II or unspecified type, not stated as uncontrolled 250.00 ; Epididymitis 604.90 and Hypogonadism in male 257.2 [facility] [address] [id number] [address] [place] [phone] Feb, [facility] [address] [id number] [address] [place] [phone] Feb, [facility] [address] [id number] [address] [place] [phone] Feb, Testicular pain, right 608.9 ; Diabetes mellitus without mention of complication, type II or unspecified type, not stated as uncontrolled 250.00 and Family history of heart disease V17.49 [facility] [address] [id number] [address] [place] [phone] Feb, Testicular pain, right 608.9 and Family history of heart disease V17.49 [facility] [address] [id number] [address] [place] [address], [place] [phone] 02 Feb, 2015 [facility] [address] [id number] [address] [place] [phone] 14 Dec, 2014 [facility] [address] [id number] [address] [place] [address], [place] [address] Dec, [facility] [address] [id number] [address] [place] [phone] 16 Oct, 2014 [facility] [address] [id number] [address] [place] [address], [place] [address] Oct, [facility] [address] [id number] [address] [place] [address], [place] [phone] 16 Sep, 2014 [facility] [address] [id number] [address] [place] [phone] 16 Sep, 2014 [facility] [address] [id number] [address] [place] [phone] Sep, [facility] [address] [id number] [address] [place] [address], [place] [address] Sep, [facility] [address] [id number] [address] [place] [phone] Sep, [facility] [address] [id number] [address] [place] [phone] 15 Sep, 2014 [facility] [address] [id number] [address] [place] [phone] 14 Sep, 2014 [facility] [address] [id number] [address] [place] [phone] Sep, [facility] [address] [id number] [address] [place] [phone] Sep, [facility] [address] [id number] [address] [place] [phone] Sep, [facility] [address] [id number] [address] [place] [address], [place] [phone] Feb, [facility] [address] [id number] [address] [place] [address], [place] [address] Feb, [facility] [address] [id number] [address] [place] [address], [place] [address] January, [facility] [address] [id number] [address] [place] [address], [place] [address] January, [facility] [address] [id number] [address] [place] [address], [place] [address] January, [facility] [address] [id number] [address] [place] [address], [place] [address] January, [facility] [address] [id number] [address] [place] [address], [place] [phone] January, [facility] [address] [id number] [address] [place] [address], [place] [address] January, [facility] [address] [id number] [address] [place] [address], [place] [address] Nov, [facility] [address] [id number] [address] [place] [address], [place] [address] Nov, [facility] [address] [id number] [address] [place] [address], [place] [address] Nov, [facility] [address] [id number] [address] [place] [address], [place] [address] Nov, [facility] [address] [id number] [address] [place] [address], [place] [address] Oct, [facility] [address] [id number] [address] [place] [address], [place] [address] Oct, [facility] [address] [id number] [address] [place] [address], [place] [address] Oct, [facility] [address] [id number] [address] [place] [phone] Oct, [facility] [address] [facility] [id number] [address] [place] [phone] Oct, [facility] [address] [facility] [id number] [address] [place] [phone] Oct, [facility] [address] [facility] [id number] [address] [place] [phone] Oct, [facility] [address] [facility] [id number] [address] [place] [phone] Oct, [facility] [address] [facility] [id number] [address] [place] [phone] Oct, IMMUNIZATIONS No Known Immunizations SOCIAL HISTORY Never Assessed REASON FOR VISIT [facility] [place] VITAL SIGNS MEDICATIONS Unknown [...]
--- OUTSIDE RECORDS SUMMARY | 2020-01-26 19:44 | XMS REPORT ---
Author Author Deon SMART Organization [facility] [address] Address [address] [place] [address] Care Team Providers Care Generator Operator Name Role Phone LILLIAN SMART Unavailable PROBLEMS Type Condition ICD9-CM Code [id number] Code Onset Dates Condition S tatus SNOMED Code Problem Palpitations 785.1 Active 6769343 2 Problem Lumbago 724.2 Active 426587450 Problem Pain in joint, ankle and foot 719.47 Active 586781311 Problem Routine general medical examination at [facility] V70.0 Active 128204672 Problem Other abnormal glucose 790.29 Active 425427999 Problem Generalized anxiety disorder F41.1 A ctive 31523065 Problem Bipolar disorder, curr episode mixed, severe, wi th psychotic features F31.64 Active 940092070 Problem Obesity, unspecified 278.00 Active 202554943 Problem Cellulitis and abscess of trunk 682.2 Active 629690077 Problem Hypogonadism in male 257.2 Active 13999525 Problem Diabetes mellitus without me ntion of complication, type II or unspecified type, not stated as uncontrolled 250.00 Active 586168099 ALLERGIES No Known Allergies ENCOUNTERS Encounter Location Date Diagnosis [facility] [address] [facility] [id number] [address] [place] [phone] Jun, [facility] [address] [facility] [id number] [address] [place] [phone] Apr, [facility] [address] [facility] [id number] [address] [place] [phone] Apr, Bipolar disorder, curr episo de mixed, severe, with psychotic features F31.64 and BMI 40.0-44.9, adult Z68.41 [facility] [address] [facility] [id number] [address] [place] [phone] Apr, Hand, foot and mouth disease B08.4 and Ingrown toenail of right foot with infection L60.0 [place] [id number] [place] [phone] January, Bipolar disorder, curr episo de mixed, severe, with psychotic features F31.64 and BMI 40.0-44.9, adult Z68.41 [place] [address] [place] [id number] [address] [place], [place] [address] Dec, Bipolar disorder, curr episo de mixed, severe, with psychotic features F31.64 [place] [address] [place] [id number] [address] [place] [phone] Aug, Bipolar disorder, curr episo de mixed, severe, with psychotic features F31.64 [place] [address] [place] [id number] [address] [place] [address] Apr, Bipolar disorder, curr episo de mixed, severe, with psychotic features F31.64 [place] [address] [place] [id number] [address] [place] [address] Mar, Bipolar disorder, curr episo de mixed, severe, with psychotic features F31.64 [place] [address] [place] [id number] [address] [place] [address] Mar, Bipolar disorder, curr episo de mixed, severe, with psychotic features F31.64 [place] [address] [place] [id number] [address] [place] [address] Nov, Bipolar disorder, curr episo de mixed, severe, with psychotic features F31.64 [place] [address] [place] [id number] [address] [place] [phone] Oct, Bipolar disorder, curr episo de mixed, severe, with psychotic features F31.64 [place] [address] [place] [id number] [address] [place] [phone] Oct, Bipolar disorder, curr episo de mixed, severe, with psychotic features F31.64 [place] [address] [place] [id number] [address] [place] [phone] Sep, [facility] [address] [facility] [id number] [address] [place] [address] Sep, Bipolar disorder, curr episo de mixed, severe, with psychotic features F31.64 [place] [address] [facility] [id number] [address] [place] [address] Sep, Bipolar disorder, curr episo de mixed, severe, with psychotic features F31.64 [facility] [address] [facility] [id number] [address] [place] [address] Sep, Bipolar disorder, curr episo de mixed, severe, with psychotic features F31.64 and Generalized anxiety disorder F41.1 [place] [address] [facility] [id number] [address] [place] [phone] Jul, Bipolar disorder, curr episo de mixed, severe, with psychotic features F31.64 and Generalized anxiety disorder F41.1 [place] [address] [facility] [id number] [address] [place] [phone] Jul, [place] [address] [facility] [id number] [address] [place] [phone] Jul, Bipolar disorder, curr episo de mixed, severe, with psychotic features F31.64 [place] [address] [facility] [id number] [address] [place] [phone] Jul, Bipolar disorder, curr episo de mixed, severe, with psychotic features F31.64 and Generalized anxiety disorder F41.1 [place] [address] [facility] [id number] [address] [place] [address] Jul, Bipolar disorder, curr episo de mixed, severe, with psychotic features F31.64 [place] [address] [facility] [id number] [address] [place] [address] Jul, Bipolar II disorder F31.81 a nd Generalized anxiety disorder F41.1 [place] [address] [facility] [id number] [address] [place] [address] Feb, Dental examination Z01.20 [facility] [address] [id number] [address] [place] [address] Dec, Dental examination Z01.20 [facility] [address] [id number] [address] [place] [id number] Nov, Dental examination Z01.20 [facility] [address] [id number] [address] [place] [id number] Sep, Dental examination Z01.20 [facility] [address] [id number] [address] [place] [address] Jul, Hypogonadism in male E29.1 [facility] [address] [id number] [address] [place] [phone] Jun, Diabetes mellitus without me ntion of complication, type II or unspecified type, not stated as uncontrolled 250.00 and Testicular pain, right 608.9 [facility] [address] [id number] [address] [place] [address] May, Hypogonadism in male 257.2 [facility] [address] [id number] [address] [place] [address] Apr, [facility] [address] [id number] [address] [place] [address] Mar, Hypogonadism in male 257.2 [facility] [address] [id number] [address] [place] [address] Mar, [facility] [address] [id number] [address] [place] [phone] Mar, [facility] [address] [id number] [address] [place] [phone] Mar, Hypogonadism in male 257.2 [facility] [address] [id number] [address] [place] [phone] Feb, Hypogonadism male 257.2 [facility] [address] [id number] [address] [place] [phone] 17 Feb, 2015 Diabetes mellitus without me ntion of complication, type II or unspecified type, not stated as uncontrolled 250.00 ; Epididymitis 604.90 and Hypogonadism in male 257.2 [facility] [address] [id number] [address] [place] [phone] 15 Feb, 2015 [facility] [address] [facility] [id number] [address] [place] [phone] 12 Feb, 2015 [facility] [address] [facility] [id number] [address] [place] [phone] 08 Feb, 2015 Testicular pain, right 608.9 ; Diabetes mellitus without mention of complication, type II or unspecified type, not stated as uncontrolled 250.00 and Family history of heart disease V17.49 [facility] [address] [place] [id number] [address] [place] [phone] 03 Feb, 2015 Testicular pain, right 608.9 and Family history of heart disease V17.49 [facility] [address] [place] [id number] [address] [place] [address] Feb, [facility] [address] [facility] [id number] [address] [place] [phone] Dec, [facility] [address] [place] [id number] [address] [place] [phone] Dec, [facility] [address] [facility] [id number] [address] [place] [address] Oct, [facility] [address] [id number] [address] [place] [address] Oct, [facility] [address] [id number] [address] [place] [phone] Sep, [facility] [address] [facility] [id number] [address] [place] [phone] Sep, [facility] [address] [place] [id number] [address] [place] [phone] Sep, [facility] [address] [id number] [address] [place] [address], [place] [id number] 16 Sep, 2014 [facility] [address] [id number] [address] [place] [address], [place] [id number] 15 Sep, 2014 [facility] [address] [id number] [address] [place] [address], [place] [id number] 15 Sep, 2014 [facility] [address] [id number] [address] [place] [address], [place] [id number] 14 Sep, 2014 [facility] [address] [id number] [address] [place] [address], [place] [id number] 14 Sep, 2014 [facility] [address] [id number] [address] [place] [address], [place] [id number] Sep, [facility] [address] [id number] [address] [place] [address], [place] [id number] Sep, [facility] [address] [id number] [address] [place] [address], [place] [id number] Feb, [facility] [address] [id number] [address] [place] [address], [place] [id number] Feb, [facility] [address] [id number] [address] [place] [address], [place] [id number] January, [facility] [address] [id number] [address] [place] [address], [place] [id number] January, [facility] [address] [id number] [address] [place] [address], [place] [id number] January, [facility] [address] [id number] [address] [place] [address], [place] [id number] January, [facility] [address] [id number] [address] [place] [address], [place] [id number] January, [facility] [address] [id number] [address] [place] [address], [place] [id number] January, [facility] [address] [id number] [address] [place] [address] [address] Nov, [facility] [address] [id number] [address] [place] [phone] Nov, [facility] [address] [id number] [address] [place] [phone] Nov, [facility] [address] [id number] [address] [place] [phone] Nov, [facility] [address] [id number] [address] [place] [phone] Oct, [facility] [address] [id number] [address] [place] [phone] Oct, [facility] [address] [id number] [address] [place] [phone] 18 Oct, 2013 [facility] [address] [id number] [address] [place] [id number] 18 Oct, 2013 [facility] [address] [id number] [address] [place] [phone] 17 Oct, 2013 [facility] [address] [id number] [address] [place] [phone] 17 Oct, 2013 [facility] [address] [id number] [address] [place] [id number] 14 Oct, 2013 [facility] [address] [id number] [address] [place] [phone] 14 Oct, 2013 [facility] [address] [id number] [address] [place] [phone] 13 Oct, 2013 IMMUNIZATIONS No Known Immunizations SOCIAL HISTORY Never Assessed REASON FOR VISIT f/u PLAN OF CARE Activity Details Follow Up 3 Months Reason: VITAL SIGNS Height 70 in 2018-01-17 Weight 309.5 lbs 2018-01-17 Heart Rate 76 bpm 2018-01-17 Respiratory Rate 20 2018-01-17 BMI 44.40 kg/m2 2018-01-17 Blood pressure systolic 148 mmHg 2018-01-17 Blood pressure diastolic 102 mmHg 2018-01-17 MEDICATIONS Medication Instructions Dosage Frequency Start Date End Date Duration S tatus Lovastatin 10 MG Orally Once a day 1 tablet with a meal 24h Not-Taking Lisinopril 20 mg Orally Once a day 1 Tablet by Oral route 1 time per day 24h 30 days Active Lamictal 200 MG Orally Once a day 1 tablet 24h 30 da ys Active Trazodone HCl 50 Orally Once a [...]
--- OUTSIDE RECORDS SUMMARY | 2020-01-26 19:45 | XMS REPORT ---
Author Author Deon SMART Organization [facility] [address] Address [address] [place] [address] Care Team Providers Care Coreroom Foundry Laborer Name Role Phone LILLIAN SMART Unavailable PROBLEMS Type Condition ICD9-CM Code PSU62-YS Code Onset Dates Condition S tatus SNOMED Code Problem Palpitations 785.1 Active 4631080 2 Problem Lumbago 724.2 Active 445173361 Problem Pain in joint, ankle and foot 719.47 Active 587791688 Problem Routine general medical examination at [facility] y V70.0 Active 406868039 Problem Other abnormal glucose 790.29 Active 339327155 Problem Generalized anxiety disorder F41.1 A ctive 37336106 Problem Bipolar disorder, curr episode mixed, severe, wi th psychotic features F31.64 Active 096384247 Problem Obesity, unspecified 278.00 Active 827900346 Problem Cellulitis and abscess of trunk 682.2 Active 918110585 Problem Hypogonadism in male 257.2 Active 70120893 Problem Diabetes mellitus without me ntion of complication, type II or unspecified type, not stated as uncontrolled 250.00 Active 583071028 ALLERGIES No Information ENCOUNTERS Encounter Location Date Diagnosis [place] [address] [facility] [id number] [address] [place] [phone] Apr, [place] [address] [place] [id number] [address] [place] [phone] January, Bipolar disorder, curr episo de mixed, severe, with psychotic features F31.64 and BMI 40.0-44.9, adult Z68.41 [place] [address] [place] [id number] [address] [place] [phone] Dec, Bipolar disorder, curr episo de mixed, severe, with psychotic features F31.64 [place] [address] [place] [id number] [address] [place] [phone] Aug, Bipolar disorder, curr episo de mixed, severe, with psychotic features F31.64 [facility] [address] [place] [id number] [address] [place] [phone] Apr, Bipolar disorder, curr episo de mixed, severe, with psychotic features F31.64 [facility] [address] [place] [id number] [address] [place] [phone] Mar, Bipolar disorder, curr episo de mixed, severe, with psychotic features F31.64 [place] [address] [place] [id number] [address] [place] [phone] Mar, Bipolar disorder, curr episo de mixed, severe, with psychotic features F31.64 [place] [address] [place] [id number] [address] [place] [phone] Nov, Bipolar disorder, curr episo de mixed, severe, with psychotic features F31.64 [place] [address] [place] [id number] [address] [place] [id number] Oct, Bipolar disorder, curr episo de mixed, severe, with psychotic features F31.64 [place] [address] [place] [id number] [address] [place] [id number] Oct, Bipolar disorder, curr episo de mixed, severe, with psychotic features F31.64 [place] [address] [place] [id number] [address] [place] [phone] Sep, [facility] [address] [place] [id number] [address] [place] [phone] Sep, Bipolar disorder, curr episo de mixed, severe, with psychotic features F31.64 [place] [address] [place] [id number] [address] [place] [id number] Sep, Bipolar disorder, curr episo de mixed, severe, with psychotic features F31.64 [place] [address] [place] [id number] [address] [place] [phone] Sep, Bipolar disorder, curr episo de mixed, severe, with psychotic features F31.64 and Generalized anxiety disorder F41.1 [facility] [address] [facility] [id number] [address] [place] [id number] Jul, Bipolar disorder, curr episo de mixed, severe, with psychotic features F31.64 and Generalized anxiety disorder F41.1 [facility] [address] [facility] [id number] [address] [place] [id number] Jul, [facility] [address] [facility] [id number] [address] [place] [phone] Jul, Bipolar disorder, curr episo de mixed, severe, with psychotic features F31.64 [place] [address] [facility] [id number] [address] [place] [id number] Jul, Bipolar disorder, curr episo de mixed, severe, with psychotic features F31.64 and Generalized anxiety disorder F41.1 [place] [address] [facility] [id number] [address] [place] [id number] Jul, Bipolar disorder, curr episo de mixed, severe, with psychotic features F31.64 [place] [address] [facility] [id number] [address] [place] [id number] Jul, Bipolar II disorder F31.81 a nd Generalized anxiety disorder F41.1 [place] [address] [facility] [id number] [address] [place] [phone] Feb, Dental examination Z01.20 [facility] [address] [id number] [address] [place] [id number] Dec, Dental examination Z01.20 [facility] [address] [id number] [address] [place] [id number] Nov, Dental examination Z01.20 [facility] [address] [id number] [address] [place] [id number] Sep, Dental examination Z01.20 [place] [id number] [facility] [id number] [address] [place] [id number] Jul, Hypogonadism in male E29.1 [facility] [address] [id number] [address] [place] [phone] Jun, Diabetes mellitus without me ntion of complication, type II or unspecified type, not stated as uncontrolled 250.00 and Testicular pain, right 608.9 [facility] [address] [id number] [address] [place] [id number] May, Hypogonadism in male 257.2 [facility] [address] [id number] [address] [place] [phone] Apr, [facility] [address] [id number] [address] [place] [id number] Mar, Hypogonadism in male 257.2 [facility] [address] [id number] [address] [place] [phone] Mar, [facility] [address] [id number] [address] [place] [phone] Mar, [facility] [address] [id number] [address] [place] [phone] Mar, Hypogonadism in male 257.2 [facility] [address] [id number] [address] [place] [id number] Feb, Hypogonadism male 257.2 [facility] [address] [id number] [address] [place] [phone] Feb, Diabetes mellitus without me ntion of complication, type II or unspecified type, not stated as uncontrolled 250.00 ; Epididymitis 604.90 and Hypogonadism in male 257.2 [facility] [address] [id number] [address] [place] [id number] Feb, [facility] [address] [id number] [address] [place] [phone] Feb, [facility] [address] [id number] [address] [place] [phone] Feb, Testicular pain, right 608.9 ; Diabetes mellitus without mention of complication, type II or unspecified type, not stated as uncontrolled 250.00 and Family history of heart disease V17.49 [facility] [address] [id number] [address] [place] [id number] 03 Feb, 2015 Testicular pain, right 608.9 and Family history of heart disease V17.49 [facility] [address] [id number] [address] [place] [id number] 02 Feb, 2015 [facility] [address] [id number] [address] [place] [id number] 14 Dec, 2014 [facility] [address] [id number] [address] [place] [phone] Dec, [facility] [address] [id number] [address] [place] [id number] 16 Oct, 2014 [facility] [address] [id number] [address] [place] [phone] 16 Oct, 2014 [facility] [address] [id number] [address] [place] [phone] Sep, [facility] [address] [id number] [address] [place] [phone] Sep, [facility] [address] [id number] [address] [place] [phone] Sep, [facility] [address] [id number] [address] [place] [phone] Sep, [facility] [address] [id number] [address] [place] [phone] Sep, [facility] [address] [id number] [address] [place] [phone] Sep, [facility] [address] [id number] [address] [place] [phone] Sep, [facility] [address] [id number] [address] [place] [phone] Sep, [facility] [address] [id number] [address] [place] [address], [place] [phone] Sep, [facility] [address] [id number] [address] [place] [address], [place] [id number] Sep, [facility] [address] [id number] [address] [place] [address], [place] [phone] Feb, [facility] [address] [id number] [address] [place] [address], [place] [id number] Feb, [facility] [address] [id number] [address] [place] [address], [place] [phone] January, [facility] [address] [id number] [address] [place] [address], [place] [id number] January, [facility] [address] [id number] [address] [place] [address], [place] [id number] January, [facility] [address] [id number] [address] [place] [address], [place] [id number] January, [facility] [address] [id number] [address] [place] [address], [place] [id number] January, [facility] [address] [id number] [address] [place] [address], [place] [phone] January, [facility] [address] [id number] [address] [place] [address], [place] [id number] Nov, [facility] [address] [id number] [address] [place] [address], [place] [address] Nov, [facility] [address] [id number] [address] [place] [address], [place] [id number] Nov, [facility] [address] [id number] [address] [place] [address], [place] [address] Nov, [facility] [address] [id number] [address] [place] [address], [place] [address] Oct, [facility] [address] [id number] [address] [place] [phone] Oct, [facility] [address] [id number] [address] [place] [phone] Oct, [facility] [address] [id number] [address] [place] [phone] Oct, [facility] [address] [id number] [address] [place] [phone] Oct, [facility] [address] [facility] [id number] [address] [place] [phone] Oct, [facility] [address] [facility] [id number] [address] [place] [phone] Oct, [facility] [address] [facility] [id number] [address] [place] [id number] Oct, [facility] [address] [facility] [id number] [address] [place] [phone] Oct, IMMUNIZATIONS No Known Immunizations SOCIAL HISTORY Never Assessed REASON FOR VISIT Refill request PLAN OF CARE VITAL SIGNS MEDICATIONS Medication Instructions Dosage Frequency Start Date End Date Duration S tatus Lamictal 100 mg Orally Twice a day 1 tablet 12h 30 d ays Active RESULTS No Results PROCEDURES No Known [...]
--- OUTSIDE RECORDS SUMMARY | 2020-01-26 19:45 | XMS REPORT ---
Author Author Deon DONOVAN Organization [facility] Address [address] [place] [address] Care Team Providers Care Printed Circuit Board Reworker Name Role Phone LIZZY DONOVAN Unavailable PROBLEMS Type Condition ICD9-CM Code UYH84-OD Code Onset Dates Condition S tatus SNOMED Code Problem Palpitations 785.1 Active 1289270 2 Problem Lumbago 724.2 Active 926926044 Problem Pain in joint, ankle and foot 719.47 Active 066965818 Problem Routine general medical examination at [facility] V70.0 Active 524311724 Problem Other abnormal glucose 790.29 Active 324849885 Problem Generalized anxiety disorder F41.1 A ctive 95278819 Problem Bipolar disorder, curr episode mixed, severe, wi th psychotic features F31.64 Active 911574328 Problem Obesity, unspecified 278.00 Active 902265267 Problem Cellulitis and abscess of trunk 682.2 Active 971669447 Problem Hypogonadism in male 257.2 Active 77713057 Problem Diabetes mellitus without me ntion of complication, type II or unspecified type, not stated as uncontrolled 250.00 Active 766089342 ALLERGIES Unknown Allergies SOCIAL HISTORY No smoking Hx information available PLAN OF CARE Activity Details Follow Up Next available Reason:anger, anxiety VITAL SIGNS MEDICATIONS Unknown Medications RESULTS No Results PROCEDURES Procedure Date Ordered Related Diagnosis Body Site Psychotherapy, patient &/family, 30 minutes, established patient Sep 12, 2016 IMMUNIZATIONS No Known Immunizations
--- OUTSIDE RECORDS SUMMARY | 2020-01-26 19:45 | XMS REPORT ---
Author Author Deon MUNSON Organization [employer] Address Unknown Phone Unavailable Care Team Providers Care Wire Rope Sales Representative Name Role Phone ED MNUSON CP Unavailable Allergies No Known Allergies Problems Problem Type Condition Code Onset Dates Condition Statu s Problem Other abnormal glucose 790.29 Activ e Problem Obesity, unspecified 278.00 Active Problem Routine general medical examination at [facility] [place] V70.0 Active Assessment Testicular pain, right 608.9 Activ e Assessment Diabetes mellitus without me ntion of complication, type II or unspecified type, not stated as uncontrolled 250.00 Active Problem Pain in joint, ankle and foot 719.47 Active Problem Cellulitis and abscess of trunk 682.2 Active Problem Hypogonadism in male 257.2 Active Problem Lumbago 724.2 Active Problem Diabetes mellitus without me ntion of complication, type II or unspecified type, not stated as uncontrolled 250.00 Active Problem Palpitations 785.1 Active Problem Anxiety state, unspecified 300.00 A ctive Medications No Known Medications Procedures Procedure Coding System Code Date COMPREHEN METABOLIC PANEL CPT-4 98050 Jun ASSAY THYROID STIM HORMONE CPT-4 66110 Jun COMPLETE CBC W/AUTO DIFF WBC CPT-4 85406 Jun 15, 2015 VENIPUNCT, ROUTINE* CPT-4 09038 Jun 15, 2015 ASSAY OF TOTAL TESTOSTERONE CPT-4 65601 Jun 15, 2015 Results Name Result Date Reference Range Unit Abnormali ty Flag ROUTINE VENIPUNCTURE Summary Purpose [employer] Submission
--- OUTSIDE RECORDS SUMMARY | 2020-01-26 19:45 | XMS REPORT ---
Author Author Deon MUNSON Organization [employer] Address Unknown Phone Unavailable Care Team Providers Care Fabrication And Layout Craftsman Name Role Phone ED MUNSON CP Unavailable Allergies No Known Allergies Problems Problem Type Condition ICD-9 Code Onset Dates Condition Statu s Problem Other abnormal glucose 790.29 Activ e Problem Obesity, unspecified 278.00 Active Problem Routine general medical examination at [facility] [place] V70.0 Active Problem Pain in joint, ankle and [...] Medications Procedures Procedure Coding System Code Date THER/PROPH/DIAG INJ, SC/IM CPT-4 89568 Apr 102014 TESTOSTERONE (PT'S OWN) CPT-4 32055 May 02, 2015 Results No Known Results Summary Purpose [employer] Submission
--- OUTSIDE RECORDS SUMMARY | 2020-01-26 19:45 | XMS REPORT ---
Author Author Deon SMART [facility] Address [address] [place] [address] Care Team Providers Care Cook Helper Meat Name Role Phone LIBAN SMARTROBBIE Unavailable PROBLEMS Type Condition ICD9-CM Code [id number] Code Onset Dates Condition S tatus SNOMED Code Problem Palpitations 785.1 Active 2164042 2 Problem Lumbago 724.2 Active 522928267 Problem Pain in joint, ankle and foot 719.47 Active 544882746 Problem Routine general medical examination at [facility] V70.0 Active 811650655 Problem Other abnormal glucose 790.29 Active 797148955 Problem Generalized anxiety disorder F41.1 A ctive 74997114 Problem Bipolar disorder, curr episode mixed, severe, wi th psychotic features F31.64 Active 572716456 Problem Obesity, unspecified 278.00 Active 279890654 Problem Cellulitis and abscess of trunk 682.2 Active 190294232 Problem Hypogonadism in male 257.2 Active 04196349 Problem Diabetes mellitus without me ntion of complication, type II or unspecified type, not stated as uncontrolled 250.00 Active 317438111 ALLERGIES No Known Allergies ENCOUNTERS Encounter Location Date Diagnosis [place] [address] [facility] [id number] [address] [place] [address] Aug, Bipolar disorder, curr episo de mixed, severe, with psychotic features F31.64 [facility] [address] [facility] [id number] [address] [place] [address] Apr, Bipolar disorder, curr episo de mixed, severe, with psychotic features F31.64 [facility] [address] [facility] [id number] [address] [place] [address] Mar, Bipolar disorder, curr episo de mixed, severe, with psychotic features F31.64 [place] [address] [facility] [id number] [address] [place] [address] Mar, Bipolar disorder, curr episo de mixed, severe, with psychotic features F31.64 [facility] [address] [facility] [id number] [address] [place] [address] Nov, Bipolar disorder, curr episo de mixed, severe, with psychotic features F31.64 [facility] [address] [facility] [id number] [address] [place] [address] Oct, Bipolar disorder, curr episo de mixed, severe, with psychotic features F31.64 [facility] [address] [facility] [id number] [address] [place] [address] Oct, Bipolar disorder, curr episo de mixed, severe, with psychotic features F31.64 [facility] [address] [facility] [id number] [address] [place] [address] Sep, [facility] [address] [place] [id number] [address] [place] [address] Sep, Bipolar disorder, curr episo de mixed, severe, with psychotic features F31.64 [facility] [address] [facility] [id number] [address] [place] [address] Sep, Bipolar disorder, curr episo de mixed, severe, with psychotic features F31.64 [facility] [address] [facility] [id number] [address] [place] [address] Sep, Bipolar disorder, curr episo de mixed, severe, with psychotic features F31.64 and Generalized anxiety disorder F41.1 [facility] [address] [facility] [id number] [address] [place] [address] Jul, Bipolar disorder, curr episo de mixed, severe, with psychotic features F31.64 and Generalized anxiety disorder F41.1 [facility] [address] [facility] [id number] [address] [place] [address] Jul, [facility] [address] [facility] [id number] [address] [place] [address] Jul, Bipolar disorder, curr episo de mixed, severe, with psychotic features F31.64 [facility] [address] [id number] [address] [place] [address] 15 Jul, 2016 Bipolar disorder, curr episo de mixed, severe, with psychotic features F31.64 and Generalized anxiety disorder F41.1 [place] [address] [facility] [id number] [address] [place] [address] 11 Jul, 2016 Bipolar disorder, curr episo de mixed, severe, with psychotic features F31.64 [facility] [address] [id number] [address] [place] [id number] 02 Jul, 2016 Bipolar II disorder F31.81 a nd Generalized anxiety disorder F41.1 [place] [address] [facility] [id number] [address] [place] [address] Feb, Dental examination Z01.20 [place] [address] [facility] [id number] [address] [place] [address] Dec, Dental examination Z01.20 [facility] [address] [id number] [address] [place] [id number] Nov, Dental examination Z01.20 [facility] [address] [id number] [address] [place] [id number] Sep, Dental examination Z01.20 [place] [address] [facility] [id number] [address] [place] [address] Jul, Hypogonadism in male E29.1 [facility] [address] [facility] [id number] [address] [place] [id number] 07 Jun, 2015 Diabetes mellitus without me ntion of complication, type II or unspecified type, not stated as uncontrolled 250.00 and Testicular pain, right 608.9 [place] [address] [facility] [id number] [address] [place] [address] May, Hypogonadism in male 257.2 [place] [address] [facility] [id number] [address] [place] [address] Apr, [place] [address] [id number] [address] [place] [phone] Mar, Hypogonadism in male 257.2 [facility] [address] [id number] [address] [place] [address] Mar, [facility] [address] [facility] [id number] [address] [place] [address] Mar, [facility] [address] [facility] [id number] [address] [place] [address] Mar, Hypogonadism in male 257.2 [facility] [address] [id number] [address] [place] [id number] Feb, Hypogonadism male 257.2 [facility] [address] [facility] [id number] [address] [place] [address] Feb, Diabetes mellitus without me ntion of complication, type II or unspecified type, not stated as uncontrolled 250.00 ; Epididymitis 604.90 and Hypogonadism in male 257.2 [facility] [address] [facility] [id number] [address] [place] [address] Feb, [facility] [address] [facility] [id number] [address] [place] [address] Feb, [facility] [address] [facility] [id number] [address] [place] [address] Feb, Testicular pain, right 608.9 ; Diabetes mellitus without mention of complication, type II or unspecified type, not stated as uncontrolled 250.00 and Family history of heart disease V17.49 [facility] [address] [id number] [address] [place] [address] Feb, Testicular pain, right 608.9 and Family history of heart disease V17.49 [facility] [address] [facility] [id number] [address] [place] [address] Feb, [facility] [address] [facility] [id number] [address] [place] [address] Dec, [facility] [address] [id number] [address] [place] [address], [place] [address] Dec, [facility] [address] [id number] [address] [place] [address], [place] [address] 16 Oct, 2014 [facility] [address] [id number] [address] [place] [address], [place] [address] 16 Oct, 2014 [facility] [address] [id number] [address] [place] [address], [place] [address] 16 Sep, 2014 [facility] [address] [id number] [address] [place] [address], [place] [address] 16 Sep, 2014 [facility] [address] [id number] [address] [place] [address], [place] [address] Sep, [facility] [address] [id number] [address] [place] [address], [place] [address] 16 Sep, 2014 [facility] [address] [id number] [address] [place] [address], [place] [address] Sep, [facility] [address] [id number] [address] [place] [address], [place] [address] Sep, [facility] [address] [id number] [address] [place] [address], [place] [address] 14 Sep, 2014 [facility] [address] [id number] [address] [place] [address], [place] [address] 14 Sep, 2014 [facility] [address] [id number] [address] [place] [address], [place] [address] Sep, [facility] [address] [id number] [address] [place] [address], [place] [address] Sep, [facility] [address] [id number] [address] [place] [address], [place] [address] Feb, [facility] [address] [id number] [address] [place] [address], [place] [address] Feb, [facility] [address] [id number] [address] [place] [address], [place] [address] January, [facility] [address] [id number] [address] [place] [address], [place] [address] January, [facility] [address] [id number] [address] [place] [address], [place] [address] January, [facility] [address] [id number] [address] [place] [address], [place] [address] January, [facility] [address] [id number] [address] [place] [address], [place] [address] January, [facility] [address] [id number] [address] [place] [address], [place] [address] January, [facility] [address] [id number] [address] [place] [address], [place] [address] Nov, [facility] [address] [id number] [address] [place] [address], [place] [address] Nov, [facility] [address] [id number] [address] [place] [address], [place] [address] Nov, [facility] [address] [id number] [address] [place] [address], [place] [address] Nov, [facility] [address] [id number] [address] [place] [address], [place] [address] Oct, [facility] [address] [id number] [address] [place] [address], [place] [address] Oct, [facility] [address] [id number] [address] [place] [address], [place] [address] Oct, [facility] [address] [id number] [address] [place] [address], [place] [address] Oct, [facility] [address] [id number] [address] [place] [address], [place] [address] Oct, [facility] [address] [id number] [address] [place] [address], [place] [address] Oct, [facility] [address] [facility] [id number] [address] [place] [address] Oct, [facility] [address] [facility] [id number] [address] [place] [address] Oct, [facility] [address] [facility] [id number] [address] [place] [address] Oct, IMMUNIZATIONS No Known Immunizations SOCIAL HISTORY Never Assessed REASON FOR VISIT f/uTaylor Juárez PLAN OF CARE Activity Details Follow Up 2 Weeks Reason: VITAL SIGNS Height 70 in 2017-03-15 Weight 302.0 lbs 2017-03-15 Heart Rate 80 bpm 2017-03-15 Respiratory Rate 20 2017-03-15 BMI 43.33 kg/m2 2017-03-15 Blood pressure systolic 128 mmHg 2017-03-15 Blood pressure diastolic 84 mmHg 2017-03-15 MEDICATIONS Medication Instructions Dosage Frequency Start Date End Date Duration S tatus Lovastatin 10 MG Orally Once a day 1 tablet with a meal 24h Active Lamictal 100 mg Orally Twice a day 1/2 tablet Mar, 15 days Active Lisinopril 20 MG 1 Tablet by Oral route 1 time per day 30 Active Vistaril 25 MG Orally every 8 hrs 1 capsule as needed 8h Active Trazodone HCl 50 MG Orally Once a day 1 tablet at bedtime as needed 24 h 30 day(s) Active Lamotrigine 25 MG Orally Twice a day 1 tablet Mar, 15 days Active RESULTS No Results PROCEDURES Procedure Date Ordered Result Body Site Billing Notes on claim March 15, 2017 INSTRUCTIONS MEDICATIONS ADMINISTERED No Known Medications MEDICAL [...]
--- OUTSIDE RECORDS SUMMARY | 2020-01-26 19:45 | XMS REPORT ---
Author Author Deon MORALES Organization [facility] Address [address] [place] [address] Care Team Providers Care Machine Rigger Name Role Phone SINDHU MORALES Unavailable PROBLEMS Type Condition ICD9-CM Code ACN49-IH Code Onset Dates Condition S tatus SNOMED Code Problem Palpitations 785.1 Active 1886169 2 Problem Lumbago 724.2 Active 539804877 Problem Pain in joint, ankle and foot 719.47 Active 388497715 Problem Routine [facility] at [facility] V70.0 Active 669000009 Problem Other abnormal glucose 790.29 Active 059739713 Problem Generalized anxiety disorder F41.1 A ctive 07809851 Problem Bipolar disorder, curr episode mixed, severe, wi th psychotic features F31.64 Active 551720654 Problem Obesity, unspecified 278.00 Active 377866046 Problem Cellulitis and abscess of trunk 682.2 Active 390088011 Problem Hypogonadism in male 257.2 Active 86303468 Problem Diabetes mellitus without me ntion of complication, type II or unspecified type, not stated as uncontrolled 250.00 Active 046418471 ALLERGIES No Information SOCIAL HISTORY Never Assessed PLAN OF CARE VITAL SIGNS MEDICATIONS Medication Instructions Dosage Frequency Start Date End Date Duration S tatus Vraylar 3 MG Orally Once a day 1 capsule 24h 90 days Active RESULTS No Results PROCEDURES No Known procedures IMMUNIZATIONS No Known Immunizations MEDICAL (GENERAL) HISTORY Type Description Date Medical [...]
--- OUTSIDE RECORDS SUMMARY | 2020-01-26 19:45 | XMS REPORT ---
Author Author Deon SMART [facility] Address [address] [place] [address] Care Team Providers Care Front Office Administrator Name Role Phone BERRY, DAWROBBIE Unavailable PROBLEMS Type Condition ICD9-CM Code GES08-HB Code Onset Dates Condition S tatus SNOMED Code Problem Palpitations 785.1 Active 0341879 2 Problem Lumbago 724.2 Active 894612843 Problem Pain in joint, ankle and foot 719.47 Active 947963013 Problem Routine general medical examination at [facility] V70.0 Active 774333794 Problem Other abnormal glucose 790.29 Active 489869591 Problem Generalized anxiety disorder F41.1 A ctive 96974574 Problem Bipolar disorder, curr episode mixed, severe, wi th psychotic features F31.64 Active 925318315 Problem Obesity, unspecified 278.00 Active 670954143 Problem Cellulitis and abscess of trunk 682.2 Active 323054442 Problem Hypogonadism in male 257.2 Active 14836010 Problem Diabetes mellitus without me ntion of complication, type II or unspecified type, not stated as uncontrolled 250.00 Active 577579956 ALLERGIES No Known Allergies ENCOUNTERS Encounter Location Date Diagnosis [place] [address] [address] [facility] [id number] [address] [place] [address] January, [place] [address] [address] [place] [id number] [address] [place] [address] Dec, Bipolar disorder, curr episo de mixed, severe, with psychotic features F31.64 [place] [address] [address] [place] [id number] [address] [place] [address] Aug, Bipolar disorder, curr episo de mixed, severe, with psychotic features F31.64 [place] [address] [address] [place] [id number] [address] [place] [address] Apr, Bipolar disorder, curr episo de mixed, severe, with psychotic features F31.64 [facility] [address] [facility] [id number] [address] [place] [address] Mar, Bipolar disorder, curr episo de mixed, severe, with psychotic features F31.64 [facility] [address] [facility] [id number] [address] [place] [address] Mar, Bipolar disorder, curr episo de mixed, severe, with psychotic features F31.64 [place] [address] [address] [place] [id number] [address] [place] [address] Nov, Bipolar disorder, curr episo de mixed, severe, with psychotic features F31.64 [place] [address] [address] [place] [id number] [address] [place] [address] Oct, Bipolar disorder, curr episo de mixed, severe, with psychotic features F31.64 [place] [address] [address] [place] [id number] [address] [place] [address] Oct, Bipolar disorder, curr episo de mixed, severe, with psychotic features F31.64 [place] [address] [address] [place] [id number] [address] [place] [address] Sep, [place] [address] [address] [place] [id number] [address] [place] [address] Sep, Bipolar disorder, curr episo de mixed, severe, with psychotic features F31.64 [place] [address] [address] [place] [id number] [address] [place] [address] Sep, Bipolar disorder, curr episo de mixed, severe, with psychotic features F31.64 [place] [address] [address] [facility] [id number] [address] [place] [address] Sep, Bipolar disorder, curr episo de mixed, severe, with psychotic features F31.64 and Generalized anxiety disorder F41.1 [facility] [address] [facility] [id number] [address] [place] [address] Jul, Bipolar disorder, curr episo de mixed, severe, with psychotic features F31.64 and Generalized anxiety disorder F41.1 [facility] [address] [id number] [address] [place] [address] Jul, [facility] [address] [id number] [address] [place] [address] Jul, Bipolar disorder, curr episo de mixed, severe, with psychotic features F31.64 [facility] [address] [id number] [address] [place] [address] Jul, Bipolar disorder, curr episo de mixed, severe, with psychotic features F31.64 and Generalized anxiety disorder F41.1 [place] [address] [address] [facility] [id number] [address] [place] [address] Jul, Bipolar disorder, curr episo de mixed, severe, with psychotic features F31.64 [place] [address] [address] [facility] [id number] [address] [place] [address] Jul, Bipolar II disorder F31.81 a nd Generalized anxiety disorder F41.1 [place] [address] [address] [facility] [id number] [address] [place] [address] Feb, Dental examination Z01.20 [place] [address] [address] [facility] [id number] [address] [place] [address] Dec, Dental examination Z01.20 [facility] [address] [id number] [address] [place] [id number] Nov, Dental examination Z01.20 [facility] [address] [id number] [address] [place] [id number] Sep, Dental examination Z01.20 [facility] [address] [facility] [id number] [address] [place] [address] Jul, Hypogonadism in male E29.1 [facility] [address] [facility] [id number] [address] [place] [id number] 07 Jun, 2015 Diabetes mellitus without me ntion of complication, type II or unspecified type, not stated as uncontrolled 250.00 and Testicular pain, right 608.9 [facility] [address] [id number] [address] [place] [address] May, Hypogonadism in male 257.2 [facility] [address] [id number] [address] [place] [address] Apr, [facility] [address] [id number] [address] [place] [address] Mar, Hypogonadism in male 257.2 [facility] [address] [id number] [address] [place] [address] Mar, [facility] [address] [id number] [address] [place] [address] Mar, [facility] [address] [id number] [address] [place] [address] Mar, Hypogonadism in male 257.2 [facility] [address] [id number] [address] [place] [address] Feb, Hypogonadism male 257.2 [facility] [address] [id number] [address] [place] [address] Feb, Diabetes mellitus without me ntion of complication, type II or unspecified type, not stated as uncontrolled 250.00 ; Epididymitis 604.90 and Hypogonadism in male 257.2 [facility] [address] [id number] [address] [place] [address] Feb, [facility] [address] [id number] [address] [place] [address] Feb, [facility] [address] [id number] [address] [place] [address] Feb, Testicular pain, right 608.9 ; Diabetes mellitus without mention of complication, type II or unspecified type, not stated as uncontrolled 250.00 and Family history of heart disease V17.49 [facility] [address] [id number] [address] [place] [address] Feb, Testicular pain, right 608.9 and Family history of heart disease V17.49 [facility] [address] [id number] [address] [place] [address], [place] [address] 02 Feb, 2015 [facility] [address] [id number] [address] [place] [id number] 14 Dec, 2014 [facility] [address] [id number] [address] [place] [address], [place] [address] Dec, [facility] [address] [id number] [address] [place] [id number] 16 Oct, 2014 [facility] [address] [id number] [address] [place] [address], [place] [address] Oct, [facility] [address] [id number] [address] [place] [address], [place] [address] 16 Sep, 2014 [facility] [address] [id number] [address] [place] [id number] 16 Sep, 2014 [facility] [address] [id number] [address] [place] [id number] Sep, [facility] [address] [id number] [address] [place] [address], [place] [address] Sep, [facility] [address] [id number] [address] [place] [address] Sep, [facility] [address] [id number] [address] [place] [id number] 15 Sep, 2014 [facility] [address] [id number] [address] [place] [id number] 14 Sep, 2014 [facility] [address] [id number] [address] [place] [address] Sep, [facility] [address] [id number] [address] [place] [address] Sep, [facility] [address] [id number] [address] [place] [address] Sep, [facility] [address] [id number] [address] [place] [address], [place] [address] Feb, [facility] [address] [id number] [address] [place] [address], [place] [address] Feb, [facility] [address] [id number] [address] [place] [address], [place] [address] January, [facility] [address] [id number] [address] [place] [address], [place] [address] January, [facility] [address] [id number] [address] [place] [address], [place] [address] January, [facility] [address] [id number] [address] [place] [address], [place] [address] January, [facility] [address] [id number] [address] [place] [address], [place] [address] January, [facility] [address] [id number] [address] [place] [address], [place] [address] January, [facility] [address] [id number] [address] [place] [address], [place] [address] Nov, [facility] [address] [id number] [address] [place] [address], [place] [address] Nov, [facility] [address] [id number] [address] [place] [address], [place] [address] Nov, [facility] [address] [id number] [address] [place] [address], [place] [address] Nov, [facility] [address] [id number] [address] [place] [address], [place] [address] Oct, [facility] [address] [id number] [address] [place] [address], [place] [address] Oct, [facility] [address] [id number] [address] [place] [address], [place] [address] Oct, [facility] [address] [id number] [address] [place] [address] Oct, [facility] [address] [facility] [id number] [address] [place] [address] Oct, [facility] [address] [facility] [id number] [address] [place] [address] Oct, [facility] [address] [facility] [id number] [address] [place] [address] Oct, [facility] [address] [facility] [id number] [address] [place] [address] Oct, [facility] [address] [facility] [id number] [address] [place] [address] Oct, IMMUNIZATIONS No Known Immunizations SOCIAL HISTORY Never Assessed REASON FOR VISIT f/israel Dunham RN PLAN OF CARE Activity Details Follow Up 3 Months Reason: VITAL SIGNS Height 70 in 2017-04-26 Weight 297 lbs 2017-04-26 Heart Rate 72 bpm 2017-04-26 Respiratory Rate 18 2017-04-26 BMI 42.61 kg/m2 2017-04-26 Blood pressure systolic 120 mmHg 2017-04-26 Blood pressure diastolic 82 mmHg 2017-04-26 MEDICATIONS Medication Instructions Dosage Frequency Start Date End Date Duration S tatus Lisinopril 20 MG 1 Tablet by Oral route 1 time per day 30 Active Trazodone HCl 50 mg Orally Once a day 1 tablet at bedtime as needed 24 h 30 day(s) Active Lamictal 100 mg Orally Twice a day 1 tablet 12h 30 d ays Active Lovastatin 10 MG Orally Once a day 1 tablet with a meal 24h Active RESULTS No Results PROCEDURES No Known [...]
--- OUTSIDE RECORDS SUMMARY | 2020-01-26 19:45 | XMS REPORT ---
Author Author Deon SMART Organization [employer] Address Unknown Phone Unavailable Care Team Providers Care Dedicated Owner Operator Name Role Phone LILLIAN SMART CP Unavailable Allergies, Adverse Reactions, Alerts Substance Reaction Event Type N.K.D.A. Info Not Available Non Drug Allergy Problems Problem Type Condition Code Onset Dates Condition Statu s Problem Other abnormal glucose 790.29 Activ e Problem Obesity, unspecified 278.00 Active Problem Routine general medical examination at [facility] V70.0 Active Assessment Bipolar disorder, curr episo de mixed, severe, with psychotic features F31.64 Active Problem Hypogonadism in male 257.2 Active Problem Pain in joint, ankle and foot 719.47 Active Problem Bipolar disorder, curr episode mixed, se [place], with psychotic features F31.64 Active Problem Lumbago 724.2 Active Problem Diabetes mellitus without me ntion of complication, type II or unspecified type, not stated as uncontrolled 250.00 Active Problem Cellulitis and abscess of trunk 682.2 Active Problem Palpitations 785.1 Active Medications Medication Code System Code Instructions Start Date End Date Status Dosage Lisinopril [facility] 52226906319 20 MG 1 Tablet by Oral route 1 time per day Vraylar [facility] [address]-99 1.5 MG Orally Jul 20, 2016 1 capsule Lovastatin [facility] [address]-60 10 MG Orally Once a day 1 tablet with a meal Procedures Procedure Coding System Code Date Office Visit, Est Pt., Level 2 CPT-4 35634 Jul 20, 2016 Vital Signs Date/Time: Jul 20, 2016 Cardiac Monitoring Heart Rate 84 bpm Weight 300.8 lbs Height 70 in BMI 43.16 Index Blood Pressure Diastolic 90 mmHg Blood Pressure Systolic 130 mmHg Results No Known Results Summary Purpose [employer] Submission
--- OUTSIDE RECORDS SUMMARY | 2020-01-26 19:45 | XMS REPORT ---
Author Author Deon MUNSON Organization [employer] Address Unknown Phone Unavailable Care Team Providers Care Label Cutter Name Role Phone ED MUNSON CP Unavailable Allergies No Known Allergies Problems Problem Type Condition Code Onset Dates Condition Statu s Problem Other abnormal glucose 790.29 Activ e Problem Obesity, unspecified 278.00 Active Problem Routine general medical examination at [facility] V70.0 Active Assessment Hypogonadism in male E29.1 Active Problem Pain in joint, ankle and [...] System Code Date THER/PROPH/DIAG INJ, SC/IM CPT-4 86669 Jul TESTOSTERONE (PT'S OWN) CPT-4 46275 Jul 11, 2015 Results No Known Results Summary Purpose [employer] Submission
--- OUTSIDE RECORDS SUMMARY | 2020-01-26 19:45 | XMS REPORT ---
Author Author Deon [facility]MRAT [facility] Address [address] [place] [address] Care Team Providers Care Economic Manager Name Role Phone BERRY, DAWROBBIE Unavailable PROBLEMS Type Condition ICD9-CM Code [id number] Code Onset Dates Condition S tatus SNOMED Code Problem Palpitations 785.1 Active 5418061 2 Problem Lumbago 724.2 Active 074298012 Problem Pain in joint, ankle and foot 719.47 Active 102050731 Problem Routine general medical examination at [facility] V70.0 Active 761738782 Problem Other abnormal glucose 790.29 Active 449744080 Problem Generalized anxiety disorder F41.1 A ctive 22224873 Problem Bipolar disorder, curr episode mixed, severe, wi th psychotic features F31.64 Active 249861393 Problem Obesity, unspecified 278.00 Active 091360010 Problem Cellulitis and abscess of trunk 682.2 Active 230053019 Problem Hypogonadism in male 257.2 Active 22546712 Problem Diabetes mellitus without me ntion of complication, type II or unspecified type, not stated as uncontrolled 250.00 Active 556111895 ALLERGIES No Known Allergies ENCOUNTERS Encounter Location Date Diagnosis [place] [address] [facility] [id number] [address] [place] [phone] January, [place] [address] [place] [id number] [address] [place] [phone] Dec, Bipolar disorder, curr episo de mixed, severe, with psychotic features F31.64 [place] [address] [place] [id number] [address] [place] [address] Aug, Bipolar disorder, curr episo de mixed, severe, with psychotic features F31.64 [place] [address] [place] [id number] [address] [place] [address] Apr, Bipolar disorder, curr episo de mixed, severe, with psychotic features F31.64 [facility] [address] [facility] [id number] [address] [place] [address] Mar, Bipolar disorder, curr episo de mixed, severe, with psychotic features F31.64 [facility] [address] [facility] [id number] [address] [place] [address] Mar, Bipolar disorder, curr episo de mixed, severe, with psychotic features F31.64 [place] [address] [place] [id number] [address] [place] [address] Nov, Bipolar disorder, curr episo de mixed, severe, with psychotic features F31.64 [place] [address] [place] [id number] [address] [place] [address] Oct, Bipolar disorder, curr episo de mixed, severe, with psychotic features F31.64 [place] [address] [place] [id number] [address] [place] [address] Oct, Bipolar disorder, curr episo de mixed, severe, with psychotic features F31.64 [place] [address] [place] [id number] [address] [place] [address] Sep, [place] [address] [place] [id number] [address] [place] [address] Sep, Bipolar disorder, curr episo de mixed, severe, with psychotic features F31.64 [place] [address] [place] [id number] [address] [place] [address] Sep, Bipolar disorder, curr episo de mixed, severe, with psychotic features F31.64 [place] [address] [facility] [id number] [address] [place] [address] Sep, Bipolar disorder, curr episo de mixed, severe, with psychotic features F31.64 and Generalized anxiety disorder F41.1 [facility] [address] [facility] [id number] [address] [place] [phone] Jul, Bipolar disorder, curr episo de mixed, severe, with psychotic features F31.64 and Generalized anxiety disorder F41.1 [facility] [address] [id number] [address] [place] [id number] Jul, [facility] [address] [id number] [address] [place] [address] Jul, Bipolar disorder, curr episo de mixed, severe, with psychotic features F31.64 [facility] [address] [id number] [address] [place] [address] Jul, Bipolar disorder, curr episo de mixed, severe, with psychotic features F31.64 and Generalized anxiety disorder F41.1 [place] [address] [facility] [id number] [address] [place] [address] Jul, Bipolar disorder, curr episo de mixed, severe, with psychotic features F31.64 [place] [address] [facility] [id number] [address] [place] [address] Jul, Bipolar II disorder F31.81 a nd Generalized anxiety disorder F41.1 [place] [address] [facility] [id number] [address] [place] [address] Feb, Dental examination Z01.20 [place] [address] [facility] [id number] [address] [place] [address] Dec, Dental examination Z01.20 [facility] [address] [id number] [address] [place] [id number] Nov, Dental examination Z01.20 [facility] [address] [id number] [address] [place] [id number] Sep, Dental examination Z01.20 [facility] [address] [facility] [id number] [address] [place] [address] Jul, Hypogonadism in male E29.1 [facility] [address] [facility] [id number] [address] [place] [phone] 07 Jun, 2015 Diabetes mellitus without me ntion of complication, type II or unspecified type, not stated as uncontrolled 250.00 and Testicular pain, right 608.9 [facility] [address] [id number] [address] [place] [address] May, Hypogonadism in male 257.2 [facility] [address] [id number] [address] [place] [phone] Apr, [facility] [address] [id number] [address] [place] [address] Mar, Hypogonadism in male 257.2 [facility] [address] [id number] [address] [place] [address] Mar, [facility] [address] [id number] [address] [place] [address] Mar, [facility] [address] [id number] [address] [place] [address] Mar, Hypogonadism in male 257.2 [facility] [address] [id number] [address] [place] [address] Feb, Hypogonadism male 257.2 [facility] [address] [id number] [address] [place] [address] Feb, Diabetes mellitus without me ntion of complication, type II or unspecified type, not stated as uncontrolled 250.00 ; Epididymitis 604.90 and Hypogonadism in male 257.2 [facility] [address] [id number] [address] [place] [phone] Feb, [facility] [address] [id number] [address] [place] [address] Feb, [facility] [address] [id number] [address] [place] [phone] Feb, Testicular pain, right 608.9 ; Diabetes mellitus without mention of complication, type II or unspecified type, not stated as uncontrolled 250.00 and Family history of heart disease V17.49 [facility] [address] [id number] [address] [place] [address] Feb, Testicular pain, right 608.9 and Family history of heart disease V17.49 [facility] [address] [id number] [address] [place] [address], [place] [address] 02 Feb, 2015 [facility] [address] [id number] [address] [place] [phone] 14 Dec, 2014 [facility] [address] [id number] [address] [place] [address], [place] [address] Dec, [facility] [address] [id number] [address] [place] [phone] 16 Oct, 2014 [facility] [address] [id number] [address] [place] [address], [place] [address] Oct, [facility] [address] [id number] [address] [place] [address], [place] [address] 16 Sep, 2014 [facility] [address] [id number] [address] [place] [id number] 16 Sep, 2014 [facility] [address] [id number] [address] [place] [phone] Sep, [facility] [address] [id number] [address] [place] [address], [place] [address] Sep, [facility] [address] [id number] [address] [place] [phone] Sep, [facility] [address] [id number] [address] [place] [id number] 15 Sep, 2014 [facility] [address] [id number] [address] [place] [phone] 14 Sep, 2014 [facility] [address] [id number] [address] [place] [phone] Sep, [facility] [address] [id number] [address] [place] [phone] Sep, [facility] [address] [id number] [address] [place] [phone] Sep, [facility] [address] [id number] [address] [place] [address], [place] [address] Feb, [facility] [address] [id number] [address] [place] [address], [place] [address] Feb, [facility] [address] [id number] [address] [place] [address], [place] [address] January, [facility] [address] [id number] [address] [place] [address], [place] [address] January, [facility] [address] [id number] [address] [place] [address], [place] [address] January, [facility] [address] [id number] [address] [place] [address], [place] [address] January, [facility] [address] [id number] [address] [place] [address], [place] [address] January, [facility] [address] [id number] [address] [place] [address], [place] [address] January, [facility] [address] [id number] [address] [place] [address], [place] [address] Nov, [facility] [address] [id number] [address] [place] [address], [place] [address] Nov, [facility] [address] [id number] [address] [place] [address], [place] [address] Nov, [facility] [address] [id number] [address] [place] [address], [place] [address] Nov, [facility] [address] [id number] [address] [place] [address], [place] [address] Oct, [facility] [address] [id number] [address] [place] [address], [place] [address] Oct, [facility] [address] [id number] [address] [place] [address], [place] [address] Oct, [facility] [address] [id number] [address] [place] [address] Oct, [facility] [address] [facility] [id number] [address] [place] [address] Oct, [facility] [address] [facility] [id number] [address] [place] [address] Oct, [facility] [address] [facility] [id number] [address] [place] [address] Oct, [facility] [address] [facility] [id number] [address] [place] [address] Oct, [facility] [address] [facility] [id number] [address] [place] [phone] Oct, IMMUNIZATIONS No Known Immunizations SOCIAL HISTORY Never Assessed REASON FOR VISIT GUNNAR leal/claudia Nguyen MA PLAN OF CARE Activity Details Follow Up 4 Weeks Reason: VITAL SIGNS Height 70 in 2017-03-29 Weight 307.1 lbs 2017-03-29 Heart Rate 80 bpm 2017-03-29 Respiratory Rate 20 2017-03-29 BMI 44.06 kg/m2 2017-03-29 Blood pressure systolic 148 mmHg 2017-03-29 Blood pressure diastolic 96 mmHg 2017-03-29 MEDICATIONS Medication Instructions Dosage Frequency Start Date End Date Duration S tatus Trazodone HCl 50 MG Orally Once a day 1 tablet at bedtime as needed 24 h 30 day(s) Active Lamictal 100 mg Orally Twice a day 1 tablet 12h 30 d ays Active Lovastatin 10 MG Orally Once a day 1 tablet with a meal 24h Active Lisinopril 20 MG 1 Tablet by Oral route 1 time per day 30 Active RESULTS No Results PROCEDURES No Known [...]
--- OUTSIDE RECORDS SUMMARY | 2020-01-26 19:45 | XMS REPORT ---
Author Deon Huggins Organization [employer] Address Unknown Phone Unavailable Care Team Providers Care Biodiesel Plant Manager Name Role Phone LIZZY DONOVAN CP Unavailable Allergies No Known Allergies Problems Problem Type Condition Code Onset Dates Condition Statu s Assessment Bipolar disorder, curr episo de mixed, severe, with psychotic features F31.64 Active Problem Routine general medical examination at [facility] V70.0 Active Problem Other abnormal glucose 790.29 Activ e Assessment Generalized anxiety disorder F41.1 Active Problem Pain in joint, ankle and foot 719.47 Active Problem Cellulitis and abscess of trunk 682.2 Active Problem Hypogonadism in male 257.2 Active Problem Diabetes mellitus without me ntion of complication, type II or unspecified type, not stated as uncontrolled 250.00 Active Problem Obesity, unspecified 278.00 Active Problem Palpitations 785.1 Active Problem Lumbago 724.2 Active Medications No Known Medications Procedures Procedure Coding System Code Date Psychotherapy, patient &/family, 45 minutes, established patient CPT-4 23864 Jul 24, 2016 Results No Known Results Summary Purpose [employer] Submission
--- OUTSIDE RECORDS SUMMARY | 2020-01-26 19:45 | XMS REPORT ---
Author Deon Huggins Organization [employer] Address Unknown Phone Unavailable Care Team Providers Care Clinical Auditor Name Role Phone LIZZY DONOVAN CP Unavailable Allergies No Known Allergies Problems Problem Type Condition Code Onset Dates Condition Statu s Problem Obesity, unspecified 278.00 Active Problem Lumbago 724.2 Active Problem Diabetes mellitus without me ntion of complication, type II or unspecified type, not stated as uncontrolled 250.00 Active Problem Generalized anxiety disorder F41.1 Active Problem Hypogonadism in male 257.2 Active Problem Bipolar II disorder F31.81 Active Problem Palpitations 785.1 Active Problem Anxiety state, unspecified 300.00 A ctive Problem Pain in joint, ankle and foot 719.47 Active Problem Cellulitis and abscess of trunk 682.2 Active Assessment Generalized anxiety disorder F41.1 Active Assessment Bipolar II disorder F31.81 Active Problem Other abnormal glucose 790.29 Activ e Problem Routine general medical examination at [facility] V70.0 Active Medications No Known Medications Procedures Procedure Coding System Code Date Psychotherapy, patient &/family, 45 minutes, established patient CPT-4 05947 Jul 11, 2016 Results No Known Results Summary Purpose [employer] Submission
--- OUTSIDE RECORDS SUMMARY | 2020-01-26 19:45 | XMS REPORT ---
Author Author Deon LAINEZ [facility] [employer] Address Unknown Phone Unavailable Care Team Providers Care Row Boss Hoeing Name Role Phone DEEPA LAINEZ CP Unavailable Allergies, Adverse Reactions, Alerts Substance Reaction Event Type N.K.D.A. Info Not Available Non Drug Allergy Problems Problem Type Condition Code Onset Dates Condition Statu s Problem Other abnormal glucose 790.29 Activ e Problem Obesity, unspecified 278.00 Active Problem Routine general medical examination at [facility] V70.0 Active Assessment Dental examination Z01.20 Active Problem Pain in joint, ankle and foot 719.47 Active Problem Cellulitis and abscess of trunk 682.2 Active Problem Hypogonadism in male 257.2 Active Problem Lumbago 724.2 Active Problem Diabetes mellitus without me ntion of complication, type II or unspecified type, not stated as uncontrolled 250.00 Active Problem Palpitations 785.1 Active Problem Anxiety state, unspecified 300.00 A ctive Medications Medication Code System Code Instructions Start Date End Date Status Dosage Lisinopril [facility] [id number] 20 MG 1 Tablet by Oral route 1 time per day Gabapentin [facility] 21512288337 300 MG 1 capsul e by Oral route 1 time per day at night Wellbutrin XL [facility] [address]-35 150 mg Sep 21, 2014 1 tablet by Oral route 1 time per day Depo-Testosterone [facility] [address]-27 100 MG/ML Intramuscula r Once a month February 23, 2015 1 ml Depo-Testosterone [facility] [address]-88 200 MG/ML Intramuscula r Once a month March 11, 2015 1 ml BuPROPion HCl (XL) [facility] 19624804147 150 MG TAKE ONE TABLET BY MOUTH DAILY Levaquin [facility] [address]-16 500 MG Orally Once a day February 21, 2015 1 tablet Procedures Procedure Coding System Code Date INTRAORL-PERIAPICAL 1 FILM 06337 CPT-4 D0220 Sep 19, 2015 LTD ORAL EVALUATION - PROBLEM FOCUS CPT-4 D0140 Sep 19, 2015 Vital Signs Date/Time: Sep 19, 2015 Blood Pressure Diastolic 90 mmHg Blood Pressure Systolic 168 mmHg Height 70 in Results No Known Results Summary Purpose [employer] Submission
--- OUTSIDE RECORDS SUMMARY | 2020-01-26 19:45 | XMS REPORT ---
Author Author Deon MUNSON Organization [facility] Address [address] [place] [address] Care Team Providers Care Powerhouse Mechanic Supervisor Name Role Phone ED MUNSON Unavailable PROBLEMS Type Condition ICD9-CM Code TSJ00-XA Code Onset Dates Condition S tatus SNOMED Code Problem Palpitations 785.1 Active 2158843 2 Problem Lumbago 724.2 Active 808854260 Problem Pain in joint, ankle and foot 719.47 Active 742412361 Problem Routine general medical examination at [facility] V70.0 Active 299747248 Problem Other abnormal glucose 790.29 Active 052450900 Problem Generalized anxiety disorder F41.1 A ctive 55595016 Problem Bipolar disorder, curr episode mixed, severe, wi th psychotic features F31.64 Active 391959368 Problem Obesity, unspecified 278.00 Active 539326457 Problem Cellulitis and abscess of trunk 682.2 Active 823898289 Problem Hypogonadism in male 257.2 Active 10397144 Problem Diabetes mellitus without me ntion of complication, type II or unspecified type, not stated as uncontrolled 250.00 Active 985772934 ALLERGIES Unknown Allergies SOCIAL HISTORY No smoking Hx information available PLAN OF CARE VITAL SIGNS MEDICATIONS Unknown Medications RESULTS No Results PROCEDURES No Known procedures IMMUNIZATIONS No Known Immunizations
--- OUTSIDE RECORDS SUMMARY | 2020-01-26 19:45 | XMS REPORT ---
Author Author Deon SMART [facility] Address [address] [place] [address] Care Team Providers Care Golf Range Attendant Name Role Phone LIBAN SMARTROBBIE Unavailable PROBLEMS Type Condition ICD9-CM Code BTG19-QV Code Onset Dates Condition S tatus SNOMED Code Problem Palpitations 785.1 Active 8948940 2 Problem Lumbago 724.2 Active 312087667 Problem Pain in joint, ankle and foot 719.47 Active 788238672 Problem Routine general medical examination at [facility] V70.0 Active 196373475 Problem Other abnormal glucose 790.29 Active 308573823 Problem Generalized anxiety disorder F41.1 A ctive 26900940 Problem Bipolar disorder, curr episode mixed, severe, wi th psychotic features F31.64 Active 697698229 Problem Obesity, unspecified 278.00 Active 523510653 Problem Cellulitis and abscess of trunk 682.2 Active 529392913 Problem Hypogonadism in male 257.2 Active 45100530 Problem Diabetes mellitus without me ntion of complication, type II or unspecified type, not stated as uncontrolled 250.00 Active 502857919 ALLERGIES No Information ENCOUNTERS Encounter Location Date Diagnosis [place] [address] [address] [facility] [id number] [address] [place] [phone] Apr, [place] [address] [address] [place] [id number] [address] [place] [phone] January, Bipolar disorder, curr episo de mixed, severe, with psychotic features F31.64 and BMI 40.0-44.9, adult Z68.41 [place] [address] [address] [facility] [id number] [address] [place] [phone] Dec, Bipolar disorder, curr episo de mixed, severe, with psychotic features F31.64 [place] [address] [place] [id number] [address] [place] [phone] Aug, Bipolar disorder, curr episo de mixed, severe, with psychotic features F31.64 [place] [address] [place] [id number] [address] [place] [phone] Apr, Bipolar disorder, curr episo de mixed, severe, with psychotic features F31.64 [facility] [address] [place] [id number] [address] [place] [phone] Mar, Bipolar disorder, curr episo de mixed, severe, with psychotic features F31.64 [place] [address] [place] [id number] [address] [place] [phone] Mar, Bipolar disorder, curr episo de mixed, severe, with psychotic features F31.64 [place] [address] [place] [id number] [address] [place] [phone] Nov, Bipolar disorder, curr episo de mixed, severe, with psychotic features F31.64 [place] [address] [place] [phone] Oct, Bipolar disorder, curr episo de mixed, severe, with psychotic features F31.64 [place] [address] [place] [id number] [address] [place] [phone] Oct, Bipolar disorder, curr episo de mixed, severe, with psychotic features F31.64 [place] [address] [place] [id number] [address] [place] [phone] Sep, [place] [address] [place] [id number] [address] [place] [phone] Sep, Bipolar disorder, curr episo de mixed, severe, with psychotic features F31.64 [place] [address] [place] [id number] [address] [place] [phone] Sep, Bipolar disorder, curr episo de mixed, severe, with psychotic features F31.64 [place] [address] [place] [id number] [address] [place] [phone] Sep, Bipolar disorder, curr episo de mixed, severe, with psychotic features F31.64 and Generalized anxiety disorder F41.1 [facility] [address] [id number] [address] [place], [place] [phone] Jul, Bipolar disorder, curr episo de mixed, severe, with psychotic features F31.64 and Generalized anxiety disorder F41.1 [facility] [address] [id number] [address] [place] [phone] Jul, [facility] [address] [id number] [address] [place] [phone] Jul, Bipolar disorder, curr episo de mixed, severe, with psychotic features F31.64 [place] [address] [address] [facility] [id number] [address] [place] [phone] Jul, Bipolar disorder, curr episo de mixed, severe, with psychotic features F31.64 and Generalized anxiety disorder F41.1 [place] [address] [address] [facility] [id number] [address] [place] [phone] Jul, Bipolar disorder, curr episo de mixed, severe, with psychotic features F31.64 [place] [address] [address] [facility] [id number] [address] [place] [phone] Jul, Bipolar II disorder F31.81 a nd Generalized anxiety disorder F41.1 [facility] [address] [facility] [id number] [address] [place] [phone] Feb, Dental examination Z01.20 [facility] [address] [id number] [address] [place] [phone] Dec, Dental examination Z01.20 [facility] [address] [id number] [address] [place] [id number] Nov, Dental examination Z01.20 [facility] [address] [id number] [address] [place] [id number] Sep, Dental examination Z01.20 [facility] [address] [facility] [id number] [address] [place] [phone] Jul, Hypogonadism in male E29.1 [facility] [address] [id number] [address] [place] [phone] Jun, Diabetes mellitus without me ntion of complication, type II or unspecified type, not stated as uncontrolled 250.00 and Testicular pain, right 608.9 [facility] [address] [id number] [address] [place] [phone] May, Hypogonadism in male 257.2 [facility] [address] [id number] [address] [place] [phone] Apr, [facility] [address] [id number] [address] [place] [phone] Mar, Hypogonadism in male 257.2 [facility] [address] [id number] [address] [place] [phone] Mar, [facility] [address] [id number] [address] [place] [phone] Mar, [facility] [address] [id number] [address] [place] [phone] Mar, Hypogonadism in male 257.2 [facility] [address] [id number] [address] [place] [phone] Feb, Hypogonadism male 257.2 [facility] [address] [id number] [address] [place] [phone] Feb, Diabetes mellitus without me ntion of complication, type II or unspecified type, not stated as uncontrolled 250.00 ; Epididymitis 604.90 and Hypogonadism in male 257.2 [facility] [address] [id number] [address] [place] [phone] Feb, [facility] [address] [id number] [address] [place] [phone] Feb, [facility] [address] [id number] [address] [place] [phone] Feb, Testicular pain, right 608.9 ; Diabetes mellitus without mention of complication, type II or unspecified type, not stated as uncontrolled 250.00 and Family history of heart disease V17.49 [facility] [address] [id number] [address] [place] [phone] 03 Feb, 2015 Testicular pain, right 608.9 and Family history of heart disease V17.49 [facility] [address] [id number] [address] [place] [phone] 02 Feb, 2015 [facility] [address] [id number] [address] [place] [phone] 14 Dec, 2014 [facility] [address] [id number] [address] [place] [phone] Dec, [facility] [address] [id number] [address] [place] [phone] 16 Oct, 2014 [facility] [address] [id number] [address] [place] [phone] 16 Oct, 2014 [facility] [address] [id number] [address] [place] [phone] Sep, [facility] [address] [id number] [address] [place] [phone] Sep, [facility] [address] [id number] [address] [place] [phone] Sep, [facility] [address] [id number] [address] [place] [phone] Sep, [facility] [address] [id number] [address] [place] [phone] Sep, [facility] [address] [id number] [address] [place] [phone] Sep, [facility] [address] [id number] [address] [place] [phone] Sep, [facility] [address] [id number] [address] [place] [phone] Sep, [facility] [address] [id number] [address] [place] [address], [place] [address] Sep, [facility] [address] [id number] [address] [place] [address], [place] [address] Sep, [facility] [address] [id number] [address] [place] [address], [place] [address] Feb, [facility] [address] [id number] [address] [place] [address], [place] [address] Feb, [facility] [address] [id number] [address] [place] [address], [place] [address] January, [facility] [address] [id number] [address] [place] [address], [place] [address] January, [facility] [address] [id number] [address] [place] [address], [place] [address] January, [facility] [address] [id number] [address] [place] [address], [place] [address] January, [facility] [address] [id number] [address] [place] [address], [place] [address] January, [facility] [address] [id number] [address] [place] [address], [place] [address] January, [facility] [address] [id number] [address] [place] [address], [place] [address] Nov, [facility] [address] [id number] [address] [place] [address], [place] [address] Nov, [facility] [address] [id number] [address] [place] [address], [place] [address] Nov, [facility] [address] [id number] [address] [place] [address], [place] [address] Nov, [facility] [address] [id number] [address] [place] [address], [place] [address] Oct, [facility] [address] [id number] [address] [address] Oct, [facility] [address] [id number] [address] [place] [phone] Oct, [facility] [address] [id number] [address] [place] [phone] Oct, [facility] [address] [id number] [address] [place] [phone] Oct, [facility] [address] [facility] [id number] [address] [place] [phone] Oct, [facility] [address] [facility] [id number] [address] [place] [phone] Oct, [facility] [address] [facility] [id number] [address] [place] [phone] Oct, [facility] [address] [facility] [id number] [address] [place] [phone] Oct, IMMUNIZATIONS No Known Immunizations SOCIAL HISTORY Never Assessed REASON FOR VISIT med refill PLAN OF CARE VITAL SIGNS MEDICATIONS Medication [...]
--- OUTSIDE RECORDS SUMMARY | 2020-01-26 19:45 | XMS REPORT ---
Author Author Deon DONOVAN Organization [facility] Address [address] [place] [address] Care Team Providers Care Clam Shovel Operator Name Role Phone LIZZY DONOVAN Unavailable PROBLEMS Type Condition ICD9-CM Code WKU17-VG Code Onset Dates Condition S tatus SNOMED Code Problem Obesity, unspecified 278.00 Active 506297632 Problem Lumbago 724.2 Active 414580560 Problem Diabetes mellitus without me ntion of complication, type II or unspecified type, not stated as uncontrolled 250.00 Active 788797006 Assessment Bipolar disorder, curr episo de mixed, severe, with psychotic features F31.64 Jul, Active 538937194 Problem Other abnormal glucose 790.29 Active 105904804 Problem Routine general medical examination at [facility] V70.0 Active 631098751 Problem Generalized anxiety disorder F41.1 A ctive 53517580 Problem Bipolar disorder, curr episode mixed, severe, wi th psychotic features F31.64 Active 974428360 Problem Cellulitis and abscess of trunk 682.2 Active 396802006 Problem Palpitations 785.1 Active 2941556 2 Problem Hypogonadism in male 257.2 Active 06147932 Problem Pain in joint, ankle and foot 719.47 Active 106949619 ALLERGIES Unknown Allergies SOCIAL HISTORY No smoking Hx information available PLAN OF CARE VITAL SIGNS MEDICATIONS Unknown Medications RESULTS No Results PROCEDURES Procedure Date Ordered Related Diagnosis Body Site Psychotherapy, patient &/family, 45 minutes, established patient Aug 07, 2016 IMMUNIZATIONS No Known Immunizations
--- OUTSIDE RECORDS SUMMARY | 2020-01-26 19:45 | XMS REPORT ---
Author Author Deon SMART Organization [facility] Address [address] [place] [address] Care Team Providers Care Property Developer Name Role Phone BERRY, LILLIAN Unavailable PROBLEMS Type Condition ICD9-CM Code ZDS02-DT Code Onset Dates Condition S tatus SNOMED Code Problem Palpitations 785.1 Active 4282000 2 Problem Lumbago 724.2 Active 146927328 Problem Pain in joint, ankle and foot 719.47 Active 954735270 Problem Routine general medical examination at [facility] V70.0 Active 364024326 Problem Other abnormal glucose 790.29 Active 875597862 Problem Generalized anxiety disorder F41.1 A ctive 38619707 Problem Bipolar disorder, curr episode mixed, severe, wi th psychotic features F31.64 Active 424385566 Problem Obesity, unspecified 278.00 Active 388849324 Problem Cellulitis and abscess of trunk 682.2 Active 151956824 Problem Hypogonadism in male 257.2 Active 36252704 Problem Diabetes mellitus without me ntion of complication, type II or unspecified type, not stated as uncontrolled 250.00 Active 473672154 ALLERGIES Unknown Allergies SOCIAL HISTORY No smoking Hx information available PLAN OF CARE VITAL SIGNS MEDICATIONS Medication Instructions Dosage Frequency Start Date End Date Duration S tatus Vistaril 25 MG Orally every 8 hrs 1 capsule as needed 8h 30 days Active RESULTS No Results PROCEDURES No Known procedures IMMUNIZATIONS No Known Immunizations
--- OUTSIDE RECORDS SUMMARY | 2020-01-26 19:46 | XMS REPORT | Continuity of Care Document ---
Author Organization Unknown Address Unknown Phone Unavailable Allergies Active Description Code Type Severity Reaction Onset Reported/Identified Relationship to Patient Clinical Status Yes Bee Sting Kit [id number] Daniele vargas Allergy Mild N/A 03/12/2009 Yes No Known Drug Allergies [id number] Drug Allergy Unknown N/A 02/19/2015 Medications There is no data. Problems Date Dx Coded Attending Type Code Diagnosis Diagnosed By 10/12/2013 YELENA LENNON DO Ot 729.1 MYALGIA AND MYOSITIS NOS 10/12/2013 YELENA LENNON DO Ot 786.50 CHEST PAIN NOS 10/12/2013 YELENA LENNON DO Ot 786.59 CHEST PAIN NEC 10/12/2013 YELENA LENNON DO Ot V15.81 HX OF PAST NONCOMPLIANCE 10/23/2013 MARILU LOUISE MD 250.00 DIABETES MELLITUS TYPE 2 10/23/2013 MARILU LOUISE MD 278.00 OBESITY 10/23/2013 MARILU LOUISE MD 300.00 anxiety 10/23/2013 MARILU LOUISE MD 682.2 CELLULITIS OF THE TRUNK 10/23/2013 MARILU LOUISE MD 724.2 lower back pain 10/23/2013 MARILU LOUISE MD 785.1 PALPITATIONS 10/23/2013 MARILU LOUISE MD 250.00 DIABETES MELLITUS TYPE 2 10/23/2013 MARILU LOUISE MD 278.00 OBESITY 10/23/2013 MARILU LOUISE MD 300.00 anxiety 10/23/2013 MARILU LOUISE MD 682.2 CELLULITIS OF THE TRUNK 10/23/2013 MARILU LOUISE MD 724.2 lower back pain 10/23/2013 MARILU LOUISE MD 785.1 PALPITATIONS 10/23/2013 LUCIANO CORONEL APRN S 250.00 DIABETES MELLITUS TYPE 2 10/23/2013 HOMER DRYWALL CONTRACTOR, LUCIANO S 278.00 OBESITY 10/23/2013 HOMER DRYWALL CONTRACTOR, LUCIANO S 300.00 anxiety 10/23/2013 HOMER DRYWALL CONTRACTOR, LUCIANO S 682.2 CELLULITIS OF THE TRUNK 10/23/2013 HOMER DRYWALL CONTRACTOR, LUCIANO S 724.2 lower back pain 10/23/2013 HOMER DRYWALL CONTRACTOR, LUCIANO S 785.1 PALPITATIONS 10/23/2013 HOMER DRYWALL CONTRACTOR, LUCIANO S 250.00 DIABETES MELLITUS TYPE 2 10/23/2013 HOMER DRYWALL CONTRACTOR, LUCIANO S 278.00 OBESITY 10/23/2013 HOMER DRYWALL CONTRACTOR, LUCIANO S 300.00 anxiety 10/23/2013 HOMER DRYWALL CONTRACTOR, LUCIANO S 682.2 CELLULITIS OF THE TRUNK 10/23/2013 HOMER DRYWALL CONTRACTOR, LUCIANO S 724.2 lower back pain 10/23/2013 HOMER VENTURA LUCIANO S 785.1 PALPITATIONS 10/23/2013 HOMER VENTURA, LUCIANO S 250.00 DIABETES MELLITUS TYPE 2 10/23/2013 HOMER DRYWALL CONTRACTOR, LUCIANO S 278.00 OBESITY 10/23/2013 HOMER DRYWALL CONTRACTOR, LUCIANO S 300.00 anxiety 10/23/2013 HOMER VENTURA, LUCIANO S 682.2 CELLULITIS OF THE TRUNK 10/23/2013 HOMER VENTURA, LUCIANO S 724.2 lower back pain 10/23/2013 HOMER VENTURA, LUCIANO S 785.1 PALPITATIONS 10/23/2013 HOMER VENTURA, LUCIANO S 250.00 DIABETES MELLITUS TYPE 2 10/23/2013 HOMER DRYWALL CONTRACTOR, LUCIANO S 278.00 OBESITY 10/23/2013 HOMER DRYWALL CONTRACTOR, LUCIANO S 300.00 anxiety 10/23/2013 HOMER DRYWALL CONTRACTOR, LUCIANO S 682.2 CELLULITIS OF THE TRUNK 10/23/2013 HOMER DRYWALL CONTRACTOR, LUCIANO S 724.2 lower back pain 10/23/2013 HOMER DRYWALL CONTRACTOR, LUCIANO S 785.1 PALPITATIONS 01/25/2014 HOMER VENTURA LUCIANO S 790.29 OTHER ABNORMAL GLUCOSE 01/25/2014 HOMER DRYWALL CONTRACTOR, LUCIANO S V70.0 EXAM - ROUTINE H&P 01/25/2014 HOMER DRYWALL CONTRACTOR, LUCIANO S 790.29 OTHER ABNORMAL GLUCOSE 01/25/2014 HOMER DRYWALL CONTRACTOR, LUCIANO S V70.0 EXAM - ROUTINE H&P 01/25/2014 HOMER DRYWALL CONTRACTOR, LUCIANO S 790.29 OTHER ABNORMAL GLUCOSE 01/25/2014 HOMER DRYWALL CONTRACTOR, LUCAINO S V70.0 EXAM - ROUTINE H&P 01/25/2014 HOMER DRYWALL CONTRACTOR, LUCIANO S 790.29 OTHER ABNORMAL GLUCOSE 01/25/2014 HOMER DRYWALL CONTRACTOR, LUCIANO S V70.0 EXAM - ROUTINE H&P 09/21/2014 HOMER DRYWALL CONTRACTOR, LUCIANO S 719.47 PAIN- ANKLE 09/21/2014 HOMER DRYWALL CONTRACTOR, LUCIANO S 719.47 PAIN- ANKLE 09/28/2014 Ot 719.46 09/28/2014 DANI WADSWORTH, MARILU Willingham Ot 785.1 09/28/2014 DANI WADSWORTH, MARILU [place] Ot 786.50 02/19/2015 Ot 719.46 02/19/2015 DANI WADSWORTH, MARILU [place] Ot 785.1 02/19/2015 DANI WADSWORTH, MARILU [place] Ot 786.50 02/19/2015 CYNTHIA WADSWORTH, JACI Selby Ot 608.9 MALE GENITAL DIS NOS 02/19/2015 CYNTHIA WADSWORTH, JACI Selby Ot 789.09 ABDOMINAL PAIN, OTHER SPECIFIED SITE 04/15/2015 Ot 719.46 04/15/2015 DANI WADSWORTH, MARILU Willingham Ot 785.1 04/15/2015 MARILU LOUISE MD Ot 786.50 12/15/2015 Ot 719.46 12/15/2015 MARILU LOUISE MD Ot 785.1 12/15/2015 MARILU LOUISE MD Ot 786.50 12/15/2015 Ot 719.46 12/15/2015 MARILU LOUISE MD Ot 785.1 12/15/2015 MARILU LOUISE MD Ot 786.50 12/15/2015 JAIDEN GARY Ot N20.0 CALCULUS OF KIDNEY 12/15/2015 LOLITA HARDY JAIDEN L Ot R53.81 OTHER MALAISE 12/16/2015 LOLITA HARDY, JAIDEN Presley Ot N20.0 12/16/2015 LOLITA HARDY JAIDEN L Ot R53.81 12/29/2015 LOLITA HARDY, JAIDEN L Ot N20.0 CALCULUS OF KIDNEY 12/29/2015 LOLITA HARDY JAIDEN L Ot R53.81 OTHER MALAISE 03/16/2019 MARILU LOUISE MD Ot 785.1 PALPITATIONS 03/16/2019 MARILU LOUISE MD Ot 786.50 CHEST PAIN NOS 03/16/2019 MARILU LOUISE MD Ot 785.1 PALPITATIONS 03/16/2019 MARILU LOUISE MD Ot 786.50 CHEST PAIN NOS Procedures Code [place] [address] EKG, TRACING 10/23/2013 07641 ROUT INE VENIPUNCTURE 10/26/2013 23931 XRAY LUMBAR SPINE 2 OR 3 VIEWS 10/26/2013 83926 ECHO 2D 10/26/2013 15391 A1C (IN-HOUSE) 10/26/2013 19362 CBC 10/26/2013 9713004 GF R CALC (RESULT ONLY) 10/26/2013 26273 CMP 10/26/2013 57040 LIPI D PANEL 10/26/2013 24048 MAGNESIUM 10/26/2013 96891 TSH 10/26/2013 41695 A1C (IN-HOUSE) 09/21/2014 Results Test Result Range LIPID PANEL - 05/07/18 15:45 CHOLESTEROL, TOTAL 147 mg/dL <200 HDL CHOLESTEROL 33 mg/dL >40 TRIGLYCERIDES 129 mg/dL <150 LDL-CHOLESTEROL 91 mg/dL (calc) NRG CHOL/HDLC RATIO 4.5 (calc) <5.0 NON HDL CHOLESTEROL 114 mg/dL (calc) <13 0 TSH - 06/04/19 15:17 TSH 1.59 mIU/L 0.40-4.50 Encounters ACCT No. Visit Date/Time Discharge Status Pt. Type Provider Facility Loc./Unit Complaint [id number] 09/21/2014 09:35:00 09/21/2014 23:59: 59 CLS Outpatient LUCIANO CORONEL APRN [id number] 09/21/2014 09:35:00 09/21/2014 23:59: 59 CLS Outpatient HOMERMATHEUS VENTURALUCIANO S [id number] 01/25/2014 10:02:00 01/25/2014 23:59: 59 CLS Outpatient HOMER DRYWALL CONTRACTORLUCIANO Timoteo [id number] 01/25/2014 10:02:00 01/25/2014 23:59: 59 CLS Outpatient HOMER VENTURAJOELLUCIANO S [id number] 10/26/2013 16:09:00 10/26/2013 23:59: 59 CLS Outpatient MARILU LOUISE MD [id number] 10/26/2013 08:21:00 10/26/2013 23:59: 59 CLS Outpatient MARILU LOUISE MD [id number] 03/21/2019 21:00:00 019 23:59:59 CLS Preadmit ED MUNSON [facility] SLEEP JENY G47.33 [id number] 12/15/2015 17:00:00 016 20:25:00 DIS Emergency JAIDEN GARY [facility] ER ABDOMINAL PAIN;BACK WOODY N;VOMITING [id number] 02/19/2015 20:56:00 015 23:48:00 DIS Emergency JACI MARIE MD [facility] ER TESTICULAR PAIN [id number] 10/07/2014 16:26:00 015 23:59:59 CLS Preadmit LUCIANO CORONEL [facility] REHAB [id number] 11/06/2013 09:57:00 014 23:59:59 CLS Outpatient MARILU LOUISE MD [facility] CARD CP,PALP [id number] 10/11/2013 23:49:00 014 01:31:00 DIS Emergency YELENA LENNON DO [facility] ER CHEST PAIN, ARM NUMBNES S [id number] 08/17/2010 10:31:00 Document Registration [id number] 11/30/2019 10:40:00 11/30/2019 23:59:5 9 CLS Outpatient [facility] [id number] 06/04/2019 14:20:00 Document Registration [id number] 05/07/2018 15:00:00 Document Registration
--- OUTSIDE RECORDS SUMMARY | 2020-01-26 19:46 | XMS REPORT ---
Author Author Deon SMART Organization [facility] Address [address] [place] [address] Care Team Providers Care Green Prize Packer Name Role Phone LIBAN SMARTROBBIE Unavailable PROBLEMS Type Condition ICD9-CM Code DAI19-WM Code Onset Dates Condition S tatus SNOMED Code Problem Palpitations 785.1 Active 1928661 2 Problem Lumbago 724.2 Active 992973994 Problem Pain in joint, ankle and foot 719.47 Active 354376073 Problem Routine general medical examination at [facility] y V70.0 Active 181556641 Problem Other abnormal glucose 790.29 Active 516616599 Problem Generalized anxiety disorder F41.1 A ctive 03557694 Problem Bipolar disorder, curr episode mixed, severe, wi th psychotic features F31.64 Active 286487701 Problem Obesity, unspecified 278.00 Active 960122189 Problem Cellulitis and abscess of trunk 682.2 Active 777492482 Problem Hypogonadism in male 257.2 Active 12102016 Problem Diabetes mellitus without me ntion of complication, type II or unspecified type, not stated as uncontrolled 250.00 Active 404231727 ALLERGIES No Information SOCIAL HISTORY Never Assessed [...]
--- OUTSIDE RECORDS SUMMARY | 2020-01-26 19:46 | XMS REPORT ---
Author Author Deon SMART Organization [facility] Address [address] [place] [address] Care Team Providers Care Senior Data Developer Name Role Phone LIBAN SMARTROBBIE Unavailable PROBLEMS Type Condition ICD9-CM Code [id number] Code Onset Dates Condition S tatus SNOMED Code Problem Palpitations 785.1 Active 7599382 2 Problem Lumbago 724.2 Active 055800582 Problem Pain in joint, ankle and foot 719.47 Active 190674230 Problem Routine general medical examination at [facility] y V70.0 Active 940253104 Problem Other abnormal glucose 790.29 Active 797074169 Problem Generalized anxiety disorder F41.1 A ctive 88564165 Problem Bipolar disorder, curr episode mixed, severe, wi th psychotic features F31.64 Active 694817886 Problem Obesity, unspecified 278.00 Active 551961666 Problem Cellulitis and abscess of trunk 682.2 Active 050146232 Problem Hypogonadism in male 257.2 Active 67615157 Problem Diabetes mellitus without me ntion of complication, type II or unspecified type, not stated as uncontrolled 250.00 Active 321226833 ALLERGIES Substance Reaction Event Type Date Status N.K.D.A. Unknown Non Drug Allergy Sep, Unknown SOCIAL HISTORY No smoking Hx information available PLAN OF CARE Activity Details Follow Up 6 Weeks Reason: VITAL SIGNS Height 70 in 2016-09-12 Weight 304.6 lbs 2016-09-12 Heart Rate 76 bpm 2016-09-12 Respiratory Rate 20 2016-09-12 BMI 43.70 kg/m2 2016-09-12 Blood pressure systolic 122 mmHg 2016-09-12 Blood pressure diastolic 81 mmHg 2016-09-12 MEDICATIONS Medication Instructions Dosage Frequency Start Date End Date Duration S tatus Lisinopril 20 MG 1 Tablet by Oral route 1 time per day 30 Active Vraylar 3 MG Orally Once a day 1 capsule 24h Active Lovastatin 10 MG Orally Once a day 1 tablet with a meal 24h Active Vistaril 25 MG Orally every 8 hrs 1 capsule as needed 8h Active RESULTS No Results PROCEDURES Procedure Date Ordered Related Diagnosis Body Site MH Office Visit, Est Pt., Level 2 Sep 12, 2016 IMMUNIZATIONS No Known Immunizations
--- OUTSIDE RECORDS SUMMARY | 2020-01-26 19:46 | XMS REPORT ---
Author Author Deon SMART Organization [facility] Address [address] [place] [address] Care Team Providers Care Litigator Name Role Phone BERRY, LILLIAN Unavailable PROBLEMS Type Condition ICD9-CM Code [id number] Code Onset Dates Condition S tatus SNOMED Code Problem Palpitations 785.1 Active 1756777 2 Problem Lumbago 724.2 Active 807034216 Problem Pain in joint, ankle and foot 719.47 Active 793207953 Problem Routine general medical examination at [facility] y V70.0 Active 892468764 Problem Other abnormal glucose 790.29 Active 853397810 Problem Generalized anxiety disorder F41.1 A ctive 38551164 Problem Bipolar disorder, curr episode mixed, severe, wi th psychotic features F31.64 Active 748159577 Problem Obesity, unspecified 278.00 Active 356412448 Problem Cellulitis and abscess of trunk 682.2 Active 274635185 Problem Hypogonadism in male 257.2 Active 74207236 Problem Diabetes mellitus without me ntion of complication, type II or unspecified type, not stated as uncontrolled 250.00 Active 119460365 ALLERGIES No Known Allergies SOCIAL HISTORY Never Assessed PLAN OF CARE Activity Details Follow Up 4 Weeks Reason: VITAL SIGNS Height 70 in 2016-10-31 Weight 306.0 lbs 2016-10-31 Heart Rate 84 bpm 2016-10-31 Respiratory Rate 20 2016-10-31 BMI 43.90 kg/m2 2016-10-31 Blood pressure systolic 132 mmHg 2016-10-31 Blood pressure diastolic 90 mmHg 2016-10-31 MEDICATIONS Medication Instructions Dosage Frequency Start Date End Date Duration S tatus Vistaril 25 MG Orally every 8 hrs 1 capsule as needed 8h Active Lisinopril 20 MG 1 Tablet by Oral route 1 time per day 30 Active Trazodone HCl 50 MG Orally Once a day 1 tablet at bedtime as needed 24h Oct, 30 day(s) Active Lovastatin 10 MG Orally Once a day 1 tablet with a meal 24h Active Vraylar 3 MG Orally Once a day 1 capsule 24h 30 days Active RESULTS No Results [...]
== END 2020-01-26 17:17 | disposition home or self-care (01) ==
LOC: EDUNIT# 15:58 → ER 15:58
DX: M54.42 Lumbago with sciatica, left side (principal); F41.9 Anxiety disorder, unspecified; F32.9 Major depressive disorder, single episode, unspecified; Z82.49 Family history of ischemic heart disease and other diseases of the circulatory system
CPT/HCPCS: 99284

== ENCOUNTER 2020-10-08 16:58 | Emergency (ER) | payer BC ==
[~2020-10-08] VITALS: Ht 180 cm; Wt 154.0 kg
[2020-10-08] MEDS ORDERED: RT-ALBUTEROL INHALER HFA (VENTOLIN HFA) 18 GM IH ONE (17:05)
[2020-10-08] MEDS ORDERED: NS IV 1000 ML 1,000 ML ONE (17:12)
[2020-10-08 17:29] LABS: BASOPHILS % (AUTO) 0 % (0-10); EOSINOPHILS # (AUTO) 0.2 10^3/uL (0.0-0.3); EOSINOPHILS % (AUTO) 3 % (0-10); HEMATOCRIT 40 % (40-54); HEMOGLOBIN 13.3 g/dL (13.3-17.7); LYMPHOCYTES # (AUTO) 1.3 10^3/uL (1.0-4.0); LYMPHOCYTES % (AUTO) 27 % (12-44); MEAN CORPUSCULAR HEMOGLOBIN 28 pg (25-34); MEAN CORPUSCULAR HGB CONC 34 g/dL (32-36); MEAN CORPUSCULAR VOLUME 84 fL (80-99); MEAN PLATELET VOLUME 9.8 fL (9.0-12.2); MONOCYTES # (AUTO) 0.4 10^3/uL (0.0-1.0); MONOCYTES % (AUTO) 9 % (0-12); NEUTROPHILS # (AUTO) 2.8 10^3/uL (1.8-7.8); NEUTROPHILS % (AUTO) 60 % (42-75); PLATELET COUNT 237 10^3/uL (130-400); WHITE BLOOD COUNT 4.6 10^3/uL (4.3-11.0)
[2020-10-08] MEDS ORDERED: NS IV 1000 ML 1,000 ML IV SCH (17:30)
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
[2020-10-08 17:37] LABS: ALBUMIN 3.8 GM/DL (3.2-4.5); CHLORIDE 108 MMOL/L (98-107); POTASSIUM 4.1 MMOL/L (3.6-5.0); SODIUM 138 MMOL/L (135-145)
[2020-10-08 17:39] LABS: CALCIUM 8.9 MG/DL (8.5-10.1)
[2020-10-08 17:40] LABS: GLUCOSE 100 MG/DL (70-105)
[2020-10-08 17:41] LABS: CARBON DIOXIDE 21 MMOL/L (21-32)
[2020-10-08 17:42] LABS: BILIRUBIN,TOTAL 0.2 MG/DL (0.1-1.0)
[2020-10-08 17:43] LABS: ALKALINE PHOSPHATASE 66 U/L (40-136)
[2020-10-08 17:44] LABS: CREATININE SERUM 0.93 MG/DL (0.60-1.30); GFR ESTIMATED > 60
[2020-10-08 17:45] LABS: BUN/CREATININE RATIO 14
[2020-10-08 17:46] LABS: ALANINE AMINOTRANSFERASE 52 U/L (0-55)
[2020-10-08 17:48] LABS: ERYTHROCYTE SEDIMENTATION RATE 18 MM/HR (0-15)
[2020-10-08] MEDS ORDERED: hydrALAZINE (APESOLINE) 20 MG/ML VIAL IV ONE (18:00)
[2020-10-08] MEDS ORDERED: RT-ALBUTEROL INHALER HFA (VENTOLIN HFA) 18 GM IH SCH (18:00)
--- NOTE | 2020-10-08 18:06 | Diagnostic Imaging Report ---
EXAMINATION: Chest 1 view. HISTORY: Shortness of breath. Covid positive. COMPARISON: 10/12/2013. FINDINGS: The lung volumes are normal. Scattered opacities are visualized throughout the lungs. No large pleural effusion or pneumothorax is seen. The cardiomediastinal silhouette is normal in size and contour. No acute osseous abnormality is seen. IMPRESSION: Scattered opacities throughout the lungs, consistent with a history of Covid infection. No consolidative opacity or pleural effusion. Dictated by: Dictated on workstation # [id number]
--- NOTE | 2020-10-08 18:15 | NUR ---
oxygen turend off
[2020-10-08] MEDS ORDERED: DEXA6TAB6 PO (18:35)
--- NOTE | 2020-10-08 18:38 | NUR ---
bp remains beatriz. lower arm cuff on the pt removed and a large cuff to the upper arm applied. bp 134/84. abdoulaye notified.
[2020-10-08 18:40] VITALS: BP 134/84
== END 2020-10-08 18:40 | disposition home or self-care (01) ==
LOC: EDUNIT# 16:58 → ER 16:59
DX: U07.1 COVID-19 (principal); E66.9 Obesity, unspecified; F32.9 Major depressive disorder, single episode, unspecified; Z68.42 Body mass index [BMI] 45.0-49.9, adult; Z80.9 Family history of malignant neoplasm, unspecified; Z82.49 Family history of ischemic heart disease and other diseases of the circulatory system; Z83.3 Family history of diabetes mellitus
CPT/HCPCS: 36415; 71045; 80053; 83605; 83615; 84145; 85025; 85379; 85652; 86141; 87040

== ENCOUNTER 2022-02-28 12:37 | Emergency (ER) | payer BC ==
[~2022-02-28] VITALS: Ht 177.8 cm; Wt 158.7 kg
[~2022-02-28 12:37] MED LIST changes: +CYCL10TA25 PO; +DEXA6TAB6 PO
[2022-02-28] MEDS ORDERED: ORPHENADRINE 60 MG/2 ML (NORFLEX) AMP (ED ONLY) IM ONE (14:00)
[2022-02-28] MEDS ORDERED: KETOROLAC 60 MG/2 ML VIAL IM ONE (14:00)
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
[2022-02-28 14:34] VITALS: BP 138/96
== END 2022-02-28 14:34 | disposition home or self-care (01) ==
LOC: EDUNIT# 12:37 → ER 12:38
DX: M54.50 Low back pain, unspecified (principal); Z28.311 Partially vaccinated for COVID-19; Z79.899 Other long term (current) drug therapy
CPT/HCPCS: 99284

== ENCOUNTER → 2022-09-17 | Outpatient (CLI) | payer BC ==
--- NOTE | 2022-09-17 16:50 | Diagnostic Imaging Report ---
PROCEDURE: CT right lower extremity without contrast. TECHNIQUE: Axially acquired CT was obtained through the right midfoot and forefoot without intravenous contrast. Coronal and sagittal reformations were also performed. Auto Exposure Controls were utilized during the CT exam to meet ALARA standards for radiation dose reduction. INDICATION: Right foot pain COMPARISON: None available. FINDINGS: Bones: No features of stress fracture within the midfoot or forefoot. Alignment of osseous structures is normal. No osseous erosions or concerning focal osseous lesion. Soft tissues: Intrinsic musculature of foot is normal in bulk. No nodular thickening of plantar fascia to suggest fibromatosis. No soft tissue mass is appreciated. IMPRESSION: No osseous or soft tissue abnormality within the left midfoot or forefoot to account for pain. Dictated by: Dictated on workstation # [id number]
== END ==
LOC: RAD 14:19
PROVIDERS: ATTEND Nurse Practitioner Family
DX: M79.671 Pain in right foot (principal)
CPT/HCPCS: 73700

== ENCOUNTER 2022-10-10 13:03 | Emergency (ER) | payer BC ==
[~2022-10-10] VITALS: Ht 177.8 cm; Wt 158.7 kg
[2022-10-10] MEDS ORDERED: IBUPROFEN 600 MG (MOTRIN) TAB PO ONE (14:15)
[2022-10-10 14:23] LABS: BASOPHILS % (AUTO) 0 % (0-10); EOSINOPHILS # (AUTO) 0.3 10^3/uL (0.0-0.3); EOSINOPHILS % (AUTO) 3 % (0-10); HEMATOCRIT 40 % (40-54); HEMOGLOBIN 13.1 g/dL (13.3-17.7); LYMPHOCYTES % (AUTO) 22 % (12-44); MEAN CORPUSCULAR HEMOGLOBIN 27 pg (25-34); MEAN CORPUSCULAR HGB CONC 33 g/dL (32-36); MEAN CORPUSCULAR VOLUME 81 fL (80-99); MEAN PLATELET VOLUME 9.6 fL (9.0-12.2); MONOCYTES # (AUTO) 0.4 10^3/uL (0.0-1.0); MONOCYTES % (AUTO) 4 % (0-12); NEUTROPHILS # (AUTO) 5.8 10^3/uL (1.8-7.8); NEUTROPHILS % (AUTO) 64 % (42-75); PLATELET COUNT 345 10^3/uL (130-400); WHITE BLOOD COUNT 9.1 10^3/uL (4.3-11.0)
[2022-10-10 14:35] LABS: POTASSIUM 4.2 MMOL/L (3.6-5.0)
[2022-10-10 14:36] LABS: CALCIUM 8.9 MG/DL (8.5-10.1)
[2022-10-10 14:40] LABS: CREATININE SERUM 0.85 MG/DL (0.60-1.30)
[2022-10-10] MEDS ORDERED: CLIN-144 PO (14:52)
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
[2022-10-10 15:22] VITALS: BP 130/85
== END 2022-10-10 15:22 | disposition home or self-care (01) ==
LOC: EDUNIT# 13:03 → ER 13:05
DX: L03.116 Cellulitis of left lower limb (principal)
CPT/HCPCS: 36415; 80048; 85025; 99283

== ENCOUNTER 2022-10-23 09:31 | Emergency (ER) | payer BC ==
[~2022-10-23] VITALS: Ht 177 cm; Wt 158.0 kg
[~2022-10-23 09:31] MED LIST changes: +CLIN-144 PO
[2022-10-23] MEDS ORDERED: PIPERACILLIN SODIUM/TAZOBACTAM 4.5 GM in NS (IVPB) 100 ML IV ONE (11:45)
[2022-10-23] MEDS ORDERED: NS IV 1000 ML 1,000 ML IV SCH (11:45)
[2022-10-23] MEDS ORDERED: VANCOMYCIN INJECTION 1,000 MG in NS (IVPB) 250 ML IV SCH (11:45)
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
[2022-10-23 12:20] LABS: ALBUMIN 3.9 GM/DL (3.2-4.5); POTASSIUM 4.2 MMOL/L (3.6-5.0)
[2022-10-23 12:21] LABS: BASOPHILS % (AUTO) 0 % (0-10); CALCIUM 8.9 MG/DL (8.5-10.1); EOSINOPHILS # (AUTO) 0.2 10^3/uL (0.0-0.3); EOSINOPHILS % (AUTO) 3 % (0-10); HEMATOCRIT 41 % (40-54); HEMOGLOBIN 13.3 g/dL (13.3-17.7); LYMPHOCYTES # (AUTO) 1.8 10^3/uL (1.0-4.0); LYMPHOCYTES % (AUTO) 27 % (12-44); MEAN CORPUSCULAR HEMOGLOBIN 27 pg (25-34); MEAN CORPUSCULAR HGB CONC 32 g/dL (32-36); MEAN CORPUSCULAR VOLUME 84 fL (80-99); MEAN PLATELET VOLUME 9.2 fL (9.0-12.2); MONOCYTES # (AUTO) 0.4 10^3/uL (0.0-1.0); MONOCYTES % (AUTO) 5 % (0-12); NEUTROPHILS # (AUTO) 4.4 10^3/uL (1.8-7.8); NEUTROPHILS % (AUTO) 64 % (42-75); PLATELET COUNT 304 10^3/uL (130-400); WHITE BLOOD COUNT 6.9 10^3/uL (4.3-11.0)
[2022-10-23 12:23] LABS: TOTAL PROTEIN 7.7 GM/DL (6.4-8.2)
[2022-10-23 12:24] LABS: BILIRUBIN,TOTAL 0.4 MG/DL (0.1-1.0)
[2022-10-23 12:26] LABS: CREATININE SERUM 0.89 MG/DL (0.60-1.30)
[2022-10-23 12:29] LABS: FIBRIN DEGRADATION PRODUCTS 0.6 UG/ML (0.00-0.49); MAGNESIUM 1.7 MG/DL (1.6-2.4); PROTHROMBIN TIME PATIENT 13.3 SEC (12.2-14.7)
[2022-10-23 12:36] LABS: CREATINE KINASE MB 1.6 NG/ML (<6.6)
[2022-10-23 12:40] LABS: ERYTHROCYTE SEDIMENTATION RATE 13 MM/HR (0-15)
[2022-10-23] MEDS ORDERED: VANCOMYCIN 2000 MG/NS 500 ML IVPB IV NR ×2 (12:45)
--- NOTE | 2022-10-23 13:28 | Diagnostic Imaging Report ---
PROCEDURE: US left lower extremity venous. TECHNIQUE: Multiple real-time grayscale images were obtained over the left lower extremity in various projections. Additional duplex Doppler and color Doppler images were also obtained. INDICATION: Left leg pain and swelling. COMPARISON: Non available. FINDINGS: A short segment of nonocclusive, peripheral thrombus is present in the distal superficial femoral vein. The left common femoral, popliteal veins are patent by color doppler imaging and without DVT. Visualized proximal aspects of the greater saphenous, deep femoral, posterior tibial and peroneal veins are also patent. All of the evaluated deep venous structures demonstrate normal compressibility and waveform augmentation where applicable. IMPRESSION: 1. Short segment of nonocclusive thrombus in the distal superficial femoral vein is most likely chronic in nature. 2. No other deep venous thrombosis. Dictated by: Dictated on workstation # [id number]
[2022-10-23] MEDS ORDERED: IOHEXOL 350 MG/ML 100 ML (OMNIPAQUE 350) VIAL IV ONE ×2 (13:30→14:00)
[2022-10-23] MEDS ORDERED: NS 100 ML (IVPB) BAG IV ONE ×2 (13:30→14:00)
[2022-10-23] MEDS ORDERED: ENOXAPARIN 100 MG/1 ML (LOVENOX) SYR SC ONE (13:30)
[2022-10-23] MEDS ORDERED: ENOXAPARIN 60 MG/0.6 ML (LOVENOX) SYR SC ONE (13:30)
[2022-10-23] MEDS ORDERED: HOLD METFORMIN - RECEIVED CONTRAST 20 ML VIAL IV SCH ×2 (13:30→14:00)
--- NOTE | 2022-10-23 14:29 | Diagnostic Imaging Report ---
PROCEDURE: CT angiography Chest TECHNIQUE: After intravenous administration of contrast, thin section axial CT angiography of the chest was performed. 3D MIP reconstructions were made. All CT scans use one or more of the following dose optimizing techniques: automated exposure control, MA and/or KvP adjustment based on a patient size and exam type, or iterative reconstruction. INDICATION: Lower leg pain and swelling. Deep venous thrombosis. COMPARISON: None available. FINDINGS: Vasculature: No pulmonary emboli. No CT evidence of pulmonary hypertension or right ventricular strain. Thoracic aorta is normal in caliber. No aortic dissection or pseudoaneurysm. Heart and mediastinum: Visualized thyroid is normal. No supraclavicular, axillary, or intra-thoracic lymphadenopathy. The heart is normal in size without pericardial effusion. Pleura: No pleural effusion or pneumothorax. Lungs and airway: No endoluminal lesion in the trachea or central bronchi. No pulmonary mass, nodule or consolidation. Upper abdomen: Diffuse hypoattenuation of the liver is indicative of steatosis. Musculoskeletal: No concerning osseous lesion. IMPRESSION: 1. No acute cardiopulmonary process. Specifically, no pulmonary emboli or acute aortic syndrome. 2. Hepatic steatosis. Dictated by: Dictated on workstation # [id number]
[2022-10-23] MEDS ORDERED: RIVA1TAB PO (14:42)
[2022-10-23] MEDS ORDERED: SULF1TAB38 PO (14:42)
[2022-10-23 16:15] VITALS: BP 111/70
== END 2022-10-23 16:15 | disposition home or self-care (01) ==
LOC: EDUNIT# 09:31 → ER 09:33
DX: I82.4Z2 Acute embolism and thrombosis of unspecified deep veins of left distal lower extremity (principal); L03.116 Cellulitis of left lower limb; E66.9 Obesity, unspecified; Z68.43 Body mass index [BMI] 50.0-59.9, adult
CPT/HCPCS: 36415; 71275; 80053; 82550; 82553; 83605; 83735; 83874; 83880; 85025; 85379; 85610; 85652; 85730; 86141; 87040